=== PATIENT | female | born 1930 | race African-American/Black ===

== ENCOUNTER 2018-11-28 13:36 | Inpatient (IN) | payer MEDICARE, OTHER ==
--- NOTE | 2018-11-28 13:49 | ED ---
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 Per EMS: Pt was referred by PCP, Dr. Marie, to ED for further evaluation of her bilat leg sores to r/o infection; pt was afebrile en route and did not c/o SOB, CP; glucose en route was 232. Associated sx: bilat LE pain and edema. Per son, pt has a pressure sore on her R heel that she's had a while , as well as newer sores on the posterior RLE. He thinks she may also have a UTI because she has had altered mental status for about 4 days. Pt has not been on antibiotics recently. PMHx: hyperthyroidism, HTN, HDL, CHF, DM. Denies PMHx: stroke. - History of Current Complaint Stated Complaint: BED SORES PER EMS Hx Obtained From: Family/Business Process Analyst - son, EMS Onset/Duration: Still Present Timing: Constant Onset Severity: Moderate Current Severity: Severe Skin Location: Leg - bilat ankles and posterior RLE Character: Swelling, Pain Aggravating Symptom(s): Touch Associated Signs & Symptoms: Tenderness - bilat LE - Allergy/Home Medications Allergies/Adverse Reactions: Allergies Allergy/AdvReac Type Severity Reaction Status Date / Time enalapril Allergy Severe Swelling Verified 11/29/18 02:44 Home Medications: Home Medications Atorvastatin* [Lipitor*] 10 mg PO BEDTIME 11/28/18 [History Confirmed 11/28/18] Bismuth Subsalicylate [Pepto-Bismol] 1 dose PO Q12HR PRN 11/28/18 [History Confirmed 11/28/18] Furosemide TAB* [Lasix TAB*] 20 mg PO 1200 11/28/18 [History Confirmed 11/28/18] Furosemide TAB* [Lasix TAB*] 40 mg PO QAM 11/28/18 [History Confirmed 11/28/18] Levothyroxine TAB* [Synthroid TAB*] 25 mcg PO 0800 11/28/18 [History Confirmed 11/28/18] Sennosides [Senna] 8.6 mg PO BID 11/28/18 [History Confirmed 11/28/18] Spironolactone TAB* [Aldactone TAB*] 25 mg PO QAM 11/28/18 [History Confirmed ] glipiZIDE TAB* [Glucotrol TAB*] 2.5 mg PO QPM 11/28/18 [History Confirmed ] glipiZIDE TAB* [Glucotrol TAB*] 10 mg PO DAILY 11/28/18 [History Confirmed 11/28] Gabapentin 300 mg PO TID 11/29/18 [History Confirmed 11/29/18] PMH/Surg Hx/FS Hx/Imm Hx Previously Healthy: No Endocrine/Hematology History: Reports: Hx Diabetes Cardiovascular History: Reports: Hx Congestive Heart Failure, Hx Hypertension, Other Cardiovascular Problems/Disorders - CAD GI History: Reports: Other GI Disorders - LEFT FLANK PAIN RADIATES TO BACK / NAUSEA History: Reports: Hx Dialysis - NIDDM Musculoskeletal History: Reports: Hx Arthritis, Hx Back Problems Sensory History: Reports: Hx Contacts or Glasses - reading, Hx Hearing Problem - hearing device, son will bring in tmrw Opthamlomology History: Reports: Hx Contacts or Glasses - reading Psychiatric History: Reports: Hx Anxiety Infectious Disease History: Denies: Traveled Outside the [place] in Last 30 Days - Family History Known Family History: Positive: Cardiac Disease, Diabetes - Social History Occupation: Retired Lives: With Family Alcohol Use: None Hx Substance Use: No Substance Use Type: Reports: None Hx Tobacco Use: No Smoking Status (MU): Never Smoked Tobacco Review of Systems Positive: Other - pos: AMS Negative: Chest Pain Negative: Shortness Of Breath Positive: Edema - bialteral LE Skin: Other - pos: sores and pain to bilat LE All Other Systems Reviewed And Are Negative: Yes Physical Exam - Summary Physical Exam Summary: GENERAL: Patient is a well-developed and nourished FEMALE who is lying comfortable in the stretcher. Patient is not in any acute respiratory distress. HEAD AND FACE: Normocephalic EYES: PERRLA, EOMI x 2. EARS: Hearing grossly intact. MOUTH: Oropharynx within normal limits. NECK: Supple, trachea is midline, no adenopathy, no JVD, no carotid bruit. CHEST: Symmetric, no tenderness at palpation LUNGS: Clear to auscultation bilaterally. No wheezing or crackles. CVS: Regular rate and rhythm, S1 and S2 present, no murmurs or gallops appreciated. ABDOMEN: Soft, non-tender. Bowel sounds are normal. No abdominal abnormal pulsations. EXTREMITIES: Chronic lymphedema to bilateral LE with a lot of flaking skin, R heel decubitus ulcer, stage I, with drainage. NEURO: Alert and oriented x 3. No acute neurological deficits. Speech is normal and follows commands. SKIN: Dry and warm. A lot of flaking skin to bilateral LE, R heel decubitus ulcer, stage I, with drainage. GCS: 14 Triage Information Reviewed: Yes Vital Signs Reviewed: Yes - Macarena Coma Scale Glascow Coma Scale Comments: 14 Procedures - Procedure Summary Procedure Summary: Procedure note: 20 in Left AC. Diagnostics - Laboratory Result Diagrams: 11/28/18 13:25 11/28/18 13:25 Lab Statement: Any lab studies that have been ordered have been reviewed, and results considered in the medical decision making process. - Radiology CXR Radiology Interpretation Completed By: Radiologist Summary of Radiographic Findings: IMPRESSION: RIGHT BASILAR ATELECTASIS WITH SUGGESTION OF NODULARITY. RECOMMEND PA AND LATERAL CHEST FILMS FOR FURTHER EVALUATION. ED provider has reviewed this report. RLE XR Radiology Interpretation Completed By: Radiologist Summary of Radiographic Findings: IMPRESSION: SOFT TISSUE SWELLING, NO SPECIFIC EVIDENCE FOR OSTEOMYELITIS. ED provider has reviewed this report. - CT BRAIN CT CT Interpretation Completed By: Radiologist Summary of CT Findings: IMPRESSION: 1. NO EVIDENCE FOR ACUTE INTRACRANIAL ABNORMALITY. 2. OLD RIGHT OCCIPITAL LOBE INFARCT. ED provider has reviewed this report. CHEST CT CT Interpretation Completed By: Radiologist Summary of CT Findings: IMPRESSION: THERE ARE SCATTERED PATCHY NODULAR DENSITIES IN THE RIGHT UPPER AND LOWER LOBES MOST CONSISTENT WITH AN INFECTIOUS INFECTIOUS LESS LIKELY A NEOPLASTIC PROCESS. RECOMMEND FOLLOW-UP STUDIES TO RESOLUTION. ED provider has reviewed this report. - EKG 1451 Summary of EKG Findings: Atrial flutter at 79 bpm, 3:1. Pt has hx of a-fib based on previous EKGs. Re-Evaluation - Re-Evaluation 1 Re-Evaluation Time: 18:42 Change: Worse Comment: Pt's IV infiltrated. Course/Dx - Course Course Of Treatment: Pt is an 87 y/o F with chronic LE lymphedema was referred by Dr. Marie, PCP, to r/o infection of her bilateral LE sores. Per EMS: Pt was afebrile en route and was without SOB, CP; POC glucose: 232. Labwork shows Hgb : 10.3, Chloride: 100, BUN/C: 23.2, Glucose: 255, CRP: 37.02, BNP: 216. Procedure note: 20 in Left AC. CXR shows "RIGHT BASILAR ATELECTASIS WITH SUGGESTION OF NODULARITY. RECOMMEND PA AND LATERAL CHEST FILMS FOR FURTHER EVALUATION." Chest CT shows "THERE ARE SCATTERED PATCHY NODULAR DENSITIES IN THE RIGHT UPPER AND LOWER LOBES MOST CONSISTENT WITH AN INFECTIOUS INFECTIOUS LESS LIKELY A NEOPLASTIC PROCESS. RECOMMEND FOLLOW-UP STUDIES TO RESOLUTION.". RLE XR shows "SOFT TISSUE SWELLING, NO SPECIFIC EVIDENCE FOR OSTEOMYELITIS.". Brain CT shows "1. NO EVIDENCE FOR ACUTE INTRACRANIAL ABNORMALITY. 2. OLD RIGHT OCCIPITAL LOBE INFARCT.". Case discussed with hospitalist, Dr. Ruiz, who will admit patient. I discussed results with patient. The patient agrees with this plan. - Diagnoses Provider Diagnoses: Altered mental status, PNA (pneumonia) - Physician Notifications Discussed Care Of Patient With: Flaco Ruiz - hospitalist Time Discussed With Above Provider: 17:16 Instructed by Provider To: Admit As Inpatient Discharge - Sign-Out/Discharge Documenting (check all that apply): Patient Departure - ADMIT Patient Received Moderate/Deep Sedation with Procedure: No - Discharge Plan Condition: Stable Disposition: ADMITTED TO [facility] - Billing Disposition and Condition Condition: STABLE Disposition: Admitted to [facility] - Attestation Statements Document Initiated by Feliz: Yes Documenting Scribe: Latesha Pace Provider For Whom Scribe is Documenting (Include Credential): Dr. Ana Maria Henry MD Scribe Attestation: ILatesha, scribed for Dr. Ana Maria Henry MD on 11/29/18 at 1446. Scribe Documentation Reviewed: Yes Provider Attestation: The documentation as recorded by the Latesha castro accurately reflects the service I personally performed and the decisions made by me, Dr. Ana Maria Henry MD Status of Scribe Document: Viewed
[2018-11-28] MEDS ORDERED: NS 0.9% 1000 ML** 500 ML IV ONE (14:11)
[2018-11-28] MEDS ORDERED: fentaNYL* 50 MCG/ML 2 ML VIAL (100 MCG VIAL) IV SLOW PU ONE (15:24)
[2018-11-28 15:40] LABS: ABS Basophils 0 10^3/ul (0-0.2); ABS Eosinophils 0.2 10^3/ul (0-0.6); ABS Lymphocytes 1.6 10^3/ul (1.0-4.8); ABS Monocytes 0.4 10^3/ul (0-0.8); ABS Neutrophils 3.5 10^3/ul (1.5-7.7); ABS Nucleated RBC 0 10^3/ul; Eosinophil % 2.8 %; Hematocrit 33 % (33-41); Hemoglobin 10.3 g/dL (12.0-16.0); Lymphocyte % 27.6 %; Mean Corpuscular HGB Conc 31 g/dL (31-36); Mean Corpuscular Hemoglobin 25 pg (27-31); Mean Corpuscular Volume 79 fL (80-97); Nucleated Red Blood Cells % 0.1; Platelet Count 208 10^3/uL (150-450); Red Blood Count 4.18 10^6 /uL (3.70-4.87); Red Cell Distribution Width 16 % (10.5-15); White Blood Count 5.6 10^3/uL (3.5-10.8)
[2018-11-28 15:51] LABS: Albumin 3.9 g/dL (3.2-5.2); Albumin/Globulin Ratio 1.3 (1-3); BUN/Creatinine Ratio 23.2 (8-20); C Reactive Protein 37.02 mg/L (<8.01); Calcium 9.1 mg/dL (8.6-10.3); EGFR African American 79.8 (>60); EGFR Non-African American 65.9 (>60); Globulin 3.1 g/dL (2-4); Potassium 4.4 mmol/L (3.5-5.0); Total Bilirubin 0.3 mg/dL (0.2-1.0)
[2018-11-28 15:52] LABS: Troponin I 0.01 ng/mL (<0.04)
[2018-11-28 15:55] LABS: BNP 216 pg/mL (<=100)
[2018-11-28 15:58] LABS: Activated Partial Thrombo Time 30.5 seconds (26.0-36.3); INR 0.98 (0.77-1.02)
[2018-11-28] MEDS ORDERED: Azithromycin 500 mg/250 ml NS 500 MG/250 ML BAG IVPB ONE (17:09)
[2018-11-28] MEDS: cefTRIAXone(*) 1 GM in NS 0.9% 50 ML* 50 ML IVPB ONE ×2 (18:10→21:37)
[2018-11-28 21:17] LABS: Urine Appearance Clear; Urine Bacteria 2+ (Absent); Urine Bilirubin Negative (Negative); Urine Blood 1+ (Negative); Urine Color Straw; Urine Glucose Negative (Negative); Urine Ketones Negative (Negative); Urine Nitrite Negative (Negative); Urine Protein Negative (Negative); Urine Red Blood Cell 2+(6-10/hpf) (Absent); Urine Specific Gravity 1.005 (1.010-1.030); Urine Squamous Epithelial Cell Present (Absent); Urine Urobilinogen Negative (Negative); Urine White Blood Cell 2+(11-20/hpf) (Absent)
[2018-11-28] MEDS: Senna TAB PO SCH (22:53)
[2018-11-28] MEDS: Atorvastatin* 10 MG TAB PO SCH (22:53)
[2018-11-28] MEDS: Docusate CAP* 100 MG PO SCH (22:53)
[2018-11-28] MEDS: Heparin VIAL(*) 5000 UNITS/ML VIAL (FIVE THOUSAND) SUBCUT SCH (22:54)
--- NOTE | 2018-11-28 23:12 | HP ---
CC: Kathy Marie MD* ADMISSION HISTORY AND PHYSICAL: DATE OF ADMISSION: 11/28/18 PROVIDER: Caryn Mrar NP. PRIMARY CARE PROVIDER: Kathy Marie MD. ATTENDING PHYSICIAN WHILE IN THE HOSPITAL: Kash Beckett MD* (dictated by Caryn Marr NP). CHIEF COMPLAINT: Altered mental status. HISTORY OF PRESENT ILLNESS: Ms. Tavera is an 87-year-old female with a past medical history significant for CAD, congestive heart failure, atrial fibrillation, hypertension, jsc-qwdqolb-tpfokfplm diabetes, GERD, chronic constipation, Graves, hypothyroidism, chronic lower extremity leg ulcers x2 years who was recommended to come to the emergency room due to an open sore on her lower extremities. The history of present illness was obtained from her son as the patient is very hard of hearing and is a poor historian. The son reports that the patient has had altered mental status for approximately 4 days and strong urine odor x1 week as well as an open sore on the posterior aspect of her right lower leg that has been draining fluid. Due to this drainage and open sore, her primary care physician wanted her seen and evaluated in the emergency room. The patient denies any fever or chills. Denies any chest pain. Does report lower extremity edema, which has been chronic. Denies any cough, hemoptysis, shortness of breath. Denies any nausea, vomiting, diarrhea, abdominal pain, hematuria, or dysuria. There is a report of foul-smelling urine odor. The patient is chronically incontinent per son. There has been no weakness or sensory loss. Denies any visual complaints, dysphagia, arthralgias , myalgias. She does report lower extremity edema and open lesion on both posterior legs and calves and left heel with a small reddened area. No psychosis or anxiety. PAST MEDICAL HISTORY: Significant for: 1. CAD. 2. CHF. 3. Atrial fibrillation. 4. Hypertension. 5. Hyperlipidemia. 6. Djs-otpmwof-bkopbsftt diabetes with bilateral lower extremity neuropathy. 7. Hypothyroidism. 8. GERD. 9. Chronic constipation. PAST SURGICAL HISTORY: None. HOME MEDICATIONS: 1. Glipizide 10 mg p.o. daily. 2. Glipizide 2.5 mg p.o. daily. 3. Spironolactone 25 mg p.o. q.a.m. 4. Senna 8.6 p.o. b.i.d. 5. Furosemide 20 mg at noon, 40 mg in the morning. 6. MiraLAX 17 g every other day p.r.n. 7. Ultram 50 mg p.o. q.8 hours as needed for pain. 8. Levothyroxine 25 mcg p.o. daily. 9. Metoprolol 25 mg p.o. q.a.m. 10. Cimetidine 20 mg p.o. q.a.m. 11. Atorvastatin 10 mg p.o. at bedtime. 12. Colace 100 mg p.o. b.i.d. 13. Clopidogrel 75 mg p.o. q.a.m. 14. Aspirin 325 mg p.o. daily. 15. Acetaminophen 650 mg p.o. q.6 hours as needed for pain. ALLERGIES: To ENALAPRIL. FAMILY HISTORY: Mother with a history of congestive heart failure. No reported history of diabetes. Grandmother with a history of breast cancer. SOCIAL HISTORY: No tobacco, alcohol or illicit drug use. She is . She lives with her son. Surrogate decision maker in the event she is unable to make her own decisions is her son. She is a full code. REVIEW OF SYSTEMS: All pertinent positives are mentioned in the HPI. All others are negative. PHYSICAL EXAMINATION GENERAL: At this time, Ms. Tavera is an 87-year-old elderly female, resting on the stretcher in the emergency room. She is extremely hard of hearing. She is alert, but confused to place and time. VITAL SIGNS: Blood pressure 168/68, heart rate 76, respirations 18, O2 saturation 100%, temperature was 97.7. HEENT: Head is atraumatic, normocephalic. Eyes: EOMs are intact. Sclerae anicteric and not pale. Oral mucosa appeared to be moist. NECK: Supple. LUNGS: Clear to auscultation bilaterally. No wheezes, rales, or rhonchi. CARDIAC: S1, S2. She has irregular rate and rhythm. She has AFib on the monitor. ABDOMEN: Obese, soft, nontender. Bowel sounds are present x4. MUSCULOSKELETAL: She is able to move all extremities. She does have dry scaly skin noted to bilateral lower extremities. Pedal pulses are +1 bilaterally. She does have swelling noted to bilateral lower extremities. NEUROLOGIC: She is alert and oriented to name and person. She is confused to place and time at this time, but is able to answer questions appropriately. Cranial nerves II through XII are intact. She has no gross focal deficits. SKIN: She has a small open area on the left and right posterior calves, the right calf with a small amount of serous drainage. She does have tenderness to the left heel with a small reddened area. DIAGNOSTIC STUDIES/LAB DATA: She had an electrocardiogram that showed atrial flutter at a rate of 79. She had a chest x-ray, radiologist's impression: Right basilar atelectasis with suggestion of nodularity, recommend PA and lat chest. She had a lower extremity x- ray of her right heel, soft tissue swelling, no specific evidence of osteomyelitis. She had a CT of the brain, no evidence of acute intracranial abnormality, old right occipital lobe infarct. She had a CT of the chest, there are scattered patchy nodular densities in the right upper and lower lobes consistent with infectious, less likely neoplastic process, recommend followup studies to resolution. IMPRESSION AND PLAN: Ms. Tavera is an 87-year-old female with a past medical history significant for coronary artery disease, congestive heart failure, atrial fibrillation, hypertension, hyperlipidemia, poa-uqphcbx-diirngqis diabetes with neuropathy, lower extremity edema and chronic leg ulceration who presented to the emergency room with a complaint of open leg ulceration and altered mental status. She will be admitted under observation for altered mental status. 1. Altered mental status. I suspect this could be related to underlying urinary tract infection as the patient does have a report of foul-smelling urine x1 week with chronic incontinence. We will give her ceftriaxone 1 gram IM and then transition to oral. as the patient does not have IV access after several attempts. 2. Coronary artery disease. We will continue her clopidogrel, aspirin, atorvastatin, and metoprolol as previously prescribed. 3. Atrial fibrillation. She is rate controlled at this time. We will continue her metoprolol 25 mg p.o. daily. 4. Hypothyroid. She will continue on 25 mcg of levothyroxine p.o. daily. 5. Chronic constipation. She will continue on Colace and senna, as previously prescribed at home. 6. Diabetes. I will hold her glipizide at this time. I will place her on lispro sliding scale with Accu-Cheks a.c. 7. Pulmonary nodularity in the right lung. The patient is afebrile. She has no cough, no congestion, no rhinorrhea, no shortness of breath, no hypoxia. At this time, clinically, the patient does not appear to have pneumonia. I will hold off on treating her as pneumonia. If she should develop shortness of breath, cough, congestion, or fever, we can proceed with treating her for pneumonia at that time. I would recommend consultation to Dr. Allen for evaluation of the patient's CAT scan due to the patient being asymptomatic and concerning nodularity in the right lung. 8. FEN. She can have a carb-consistent diet. 9. Code status. She is a full code. 10. DVT prophylaxis. I will place her on heparin subcu. TIME SPENT: Time spent on this admission was approximately 60 minutes, greater than half the time was spent at the bedside reviewing events leading thus far to her hospitalization, performing my physical exam, and reviewing my plan of care. I have discussed this with my attending, Dr. Kash Beckett; he is in agreement with my plan. CARYN MARR, ADULT LITERACY TEACHER [id number]/CPS #: [id number] JOSEFA
[2018-11-29] MEDS: Acetaminophen TAB* 325 MG PO PRN ×2 (00:12→09:27)
--- NOTE | 2018-11-29 03:19 | PN ---
Progress Note - Progress Note Date of Service: 11/29/18 Note: cross cover: Frequent pauses overnight AM toprol decreased from 25 to 12.5mg
[2018-11-29] MEDS: Levothyroxine TAB* 25 MCG TAB PO SCH (04:28)
[2018-11-29] MEDS: Heparin VIAL(*) 5000 UNITS/ML VIAL (FIVE THOUSAND) SUBCUT SCH ×4 (04:28→23:03)
[2018-11-29] MEDS ORDERED: cefTRIAXone VIAL(*) 1,000 MG VIAL IM ONE (06:00)
--- NOTE | 2018-11-29 06:20 | PN ---
Progress Note - Progress Note Date of Service: 11/29/18 Note: Staph aureus positive from right ankle culture Patient is currently admitted Is placed on ceftriaxone This is appropriate treatment Nothing further this time
[2018-11-29] MEDS ORDERED: Metoprolol Succinate XL TAB* 25 MG PO SCH (09:00)
[2018-11-29] MEDS: Furosemide TAB* 40 MG PO SCH (09:27)
[2018-11-29] MEDS: Docusate CAP* 100 MG PO SCH ×2 (09:27→22:56)
[2018-11-29] MEDS: Spironolactone TAB* 25 MG PO SCH (09:27)
[2018-11-29] MEDS: Senna TAB PO SCH ×2 (09:27→22:56)
[2018-11-29] MEDS: Famotidine TAB* 20 MG PO SCH (09:27)
[2018-11-29] MEDS: Clopidogrel TAB* 75 MG PO SCH (09:27)
[2018-11-29] MEDS: Aspirin TAB* 325 MG PO SCH (09:27)
--- NOTE | 2018-11-29 09:51 | PN ---
Subjective Date of Service: 11/29/18 Interval History: Ms. Tavera is feeling "miserable" this morning, but she is not able to verbalize why. She does report pain in BLE, but is unable to further describe the pain. It is not clear if she has any pain in her BLE at baseline. She offers no further complaints. Denies CP, SOB. Appetite is good. Nursing reports significant LE edema, but no obvious wounds. There is some weeping. She has been complaining consistently about pain in her LE. Had some asymptomatic pauses overnight. Family History: Unchanged from Admission Social History: Unchanged from Admission Past Medical History: Unchanged from Admission Objective Active Medications: Acetaminophen (Tylenol Tab*) 650 mg PO Q4H PRN FEVER/PAIN Aspirin (Aspirin Tab*) 325 mg PO QAM ANN Atorvastatin Calcium (Lipitor*) 10 mg PO BEDTIME ANN Clopidogrel Bisulfate (Plavix Tab*) 75 mg PO QAM [facility] Docusate Sodium (Colace Cap*) 100 mg PO BID ANN Famotidine (Pepcid Tab*) 20 mg PO QAM ANN Furosemide (Lasix Tab*) 20 mg PO 1200 ANN Furosemide (Lasix Tab*) 40 mg PO QAM [facility] Heparin Sodium (Porcine) (Heparin Vial(*)) 5,000 units SUBCUT Q8HR ANN Levothyroxine Sodium (Synthroid Tab*) 25 mcg PO 0600 ANN Senna (Senokot Tab*) 1 tab PO BID ANN Spironolactone (Aldactone Tab*) 25 mg PO QAM [facility] Vital Signs - 8 hr 11/29/18 11/29/18 11/29/18 03:11 03:42 07:24 Temperature 96.7 F 96.7 F Pulse Rate 72 72 72 Respiratory 21 21 18 Rate Blood Pressure 142/102 142/102 150/61 (mmHg) O2 Sat by Pulse 74 94 100 Oximetry 11/29/18 07:37 Temperature 98.3 F Pulse Rate Respiratory Rate Blood Pressure (mmHg) O2 Sat by Pulse Oximetry Oxygen Devices in Use Now: None Appearance: Elderly female sitting in bed in NAD Eyes: No Scleral Icterus Ears/Nose/Mouth/Throat: Mucous Membranes Moist Neck: NL Appearance and Movements; NL JVP, Trachea Midline Respiratory: Symmetrical Chest Expansion and Respiratory Effort, Clear to Auscultation Cardiovascular: NL Sounds; No Murmurs; No JVD, - - Irregular Abdominal: NL Sounds; No Tenderness; No Distention Extremities: - - Profound lymphedema BLE Skin: - - Weeping BLE without obvious open wounds; Malodorous Neurological: - - Oriented to self Nutrition: Taking PO's Result Diagrams: 11/28/18 13:25 11/28/18 13:25 Assess/Plan/Problems-Billing Assessment: Ms. Tavera is an 87 yo F with PMH of CAD, CHF, afib, HTN, HLD, DM, peripheral neuropathy, and GERD; who presented to the ED with altered mental status and was admitted because of the concern for LE wounds and UTI. - Patient Problems (1) UTI (urinary tract infection) Comment: - Malodorous urine x1 week prior to admission - Multiple UTIs in the past - Urine culture pending - Given ceftriaxone IM x1 on admission - Start Bactrim (unable to secure IV access) (2) Lower extremity edema Code(s): R60.0 - LOCALIZED EDEMA Comment: - Small open areas noted on posterior calves on admission with reported weeping at home, but no obvious infection - Wound cultures growing staph aureus and enterobacter - Appreciate wound consult - Bactrim for UTI should cover any possible infection (3) Altered mental state Code(s): R41.82 - ALTERED MENTAL STATUS, UNSPECIFIED Comment: - Baseline mentation unclear, but son reported approx 1 week of AMS prior to admission - Likely secondary to UTI - Plan as above (4) Abnormal chest CT Code(s): R93.89 - ABNORMAL FINDINGS ON DX IMAGING OF OTH BODY STRUCTURES Comment: - CT shows scattered patchy nodular densities in RUL and lower lobes consistent with infectious process, less likely neoplastic - No cough, SOB, hemoptysis, or fever so will not treat for pneumonia at this point - Continue to monitor for symptoms and will likely need f/u imaging outpatient (5) Chronic systolic congestive heart failure Code(s): I50.22 - CHRONIC SYSTOLIC (CONGESTIVE) HEART FAILURE Comment: - Significant BLE edema, but unclear if this is r/t CHF or lymphedema as it clinically appears to look more like lymphedema - Last echo in 2009 (?) shows EF 50-55%, moderate MR, moderate TR, moderate pHTN ; unclear why there has not been a repeat echo since then (this is confirmed by records from PCP) - Not on an JAVI/ARB d/t history of angioedema with enalapril - Check TTE tomorrow - Continue metoprolol, furosemide, spironolactone (6) Atrial fibrillation Code(s): I48.91 - UNSPECIFIED ATRIAL FIBRILLATION Comment: - Rate controlled, but was noted to have pauses on tele overnight - Not on anticoagulation - Continue metoprolol at half home dose (7) Hypertension Code(s): I10 - ESSENTIAL (PRIMARY) HYPERTENSION Comment: - Slightly hypertensive, SBP 140-150s - Continue metoprolol, furosemide (8) Diabetes mellitus type 2 Code(s): E11.9 - TYPE 2 DIABETES MELLITUS WITHOUT COMPLICATIONS Comment: - Recent A1c 8.4% - Resume glipizide; start Lispro SS (9) Peripheral neuropathy Code(s): G62.9 - POLYNEUROPATHY, UNSPECIFIED Comment: - Continue gabapentin (10) CAD (coronary artery disease) Code(s): I25.10 - ATHSCL HEART DISEASE OF [place] CORONARY ARTERY W/O ANG PCTRS Comment: - Continue aspirin, atorvastatin, Plavix (11) Hyperlipidemia Code(s): E78.5 - HYPERLIPIDEMIA, UNSPECIFIED Comment: - Continue atorvastatin (12) Hypothyroidism Code(s): E03.9 - HYPOTHYROIDISM, UNSPECIFIED Comment: - Continue levothyroxine (13) GERD (gastroesophageal reflux disease) Code(s): K21.9 - GASTRO-ESOPHAGEAL REFLUX DISEASE WITHOUT ESOPHAGITIS Comment : - Continue famotidine (14) DVT prophylaxis Comment: - Heparin SQ (15) Full code status Code(s): Z78.9 - OTHER SPECIFIED HEALTH STATUS Comment: Status and Disposition: Observation for AMS. Anticipate d/c home vs [place] when medically stable. Unclear if there is enough support at home to keep her there. Attending: Micheline Doss
[2018-11-29] MEDS ORDERED: Dextrose 50% Syringe 50 ML* 25 GM/50 ML SYRINGE IV PUSH PRN (10:09)
[2018-11-29] MEDS: Furosemide TAB* 20 MG PO SCH (11:29)
[2018-11-29] MEDS: Metoprolol Succinate XL TAB* 25 MG PO SCH (11:30)
[2018-11-29] MEDS: Gabapentin CAP(*) 300 MG PO SCH ×2 (12:25→22:56)
[2018-11-29] MEDS: Insulin LISPRO* 1 UNITS UNIT SUBCUT SCH ×4 (12:26→23:03)
[2018-11-29] MEDS: glipiZIDE TAB* 5 MG PO SCH (17:39)
[2018-11-29] MEDS: Atorvastatin* 10 MG TAB PO SCH (22:56)
[2018-11-29] MEDS: Sulfamethox/Trimethoprim DS 800/160* TAB PO SCH (22:59)
[2018-11-30] MEDS: Levothyroxine TAB* 25 MCG TAB PO SCH (05:14)
[2018-11-30] MEDS: Heparin VIAL(*) 5000 UNITS/ML VIAL (FIVE THOUSAND) SUBCUT SCH ×3 (05:14→21:04)
[2018-11-30] MEDS: glipiZIDE TAB* 5 MG PO SCH ×2 (07:43→18:09)
[2018-11-30] MEDS: Insulin LISPRO* 1 UNITS UNIT SUBCUT SCH ×4 (07:44→21:04)
[2018-11-30] MEDS: Aspirin TAB* 325 MG PO SCH (09:42)
[2018-11-30] MEDS: Senna TAB PO SCH ×2 (09:42→21:03)
[2018-11-30] MEDS: Docusate CAP* 100 MG PO SCH ×2 (09:42→21:03)
[2018-11-30] MEDS: Clopidogrel TAB* 75 MG PO SCH (09:42)
[2018-11-30] MEDS: Famotidine TAB* 20 MG PO SCH (09:42)
[2018-11-30] MEDS: Gabapentin CAP(*) 300 MG PO SCH ×3 (09:43→21:03)
[2018-11-30] MEDS: Furosemide TAB* 40 MG PO SCH (09:43)
[2018-11-30] MEDS: Sulfamethox/Trimethoprim DS 800/160* TAB PO SCH (09:43)
[2018-11-30] MEDS: Spironolactone TAB* 25 MG PO SCH (09:44)
[2018-11-30] MEDS: Acetaminophen TAB* 325 MG PO PRN ×2 (09:44→13:54)
[2018-11-30] MEDS: Metoprolol Succinate XL TAB* 25 MG PO SCH (09:44)
[2018-11-30] MEDS ORDERED: Metoprolol Succinate XL TAB* 25 MG PO ONE (10:47)
[2018-11-30] MEDS: Furosemide TAB* 20 MG PO SCH (11:49)
[2018-11-30] MEDS ORDERED: Perflutren Lipid Microsphere* 3 ML VIAL ONE (12:49)
--- NOTE | 2018-11-30 13:46 | PN ---
Subjective Date of Service: 11/30/18 Interval History: Tele: noted to have 20 beats VT x1. Mg ordered. Metoprolol increased to home dose of 25 and has since controlled rate. Pt moans with each breath. When asked if she is in pain, she states that she has pain in the R heel and L knee. She states she has not been walking recently. Nursing notes that pt is 2 person assist when transferring from bed to chair; they note they occasionally use Patricia. Family History: Unchanged from Admission Social History: Unchanged from Admission Past Medical History: Unchanged from Admission Objective Active Medications: Acetaminophen (Tylenol Tab*) 650 mg PO Q4H PRN Aspirin (Aspirin Tab*) 325 mg PO QAM ANN Atorvastatin Calcium (Lipitor*) 10 mg PO BEDTIME ANN Clopidogrel Bisulfate (Plavix Tab*) 75 mg PO QAM ANN Dextrose (D50w Syringe 50 Ml*) 12.5 gm IV PUSH .FOR FS < 60 - SS PRN Docusate Sodium (Colace Cap*) 100 mg PO BID ANN Famotidine (Pepcid Tab*) 20 mg PO QAM ANN Furosemide (Lasix Tab*) 20 mg PO 1200 ANN Furosemide (Lasix Tab*) 40 mg PO QAM ANN Gabapentin (Neurontin Cap(*)) 300 mg PO TID NAN Glipizide (Glucotrol Tab*) 2.5 mg PO QPM ANN Glipizide (Glucotrol Tab*) 10 mg PO DAILY ANN Heparin Sodium (Porcine) (Heparin Vial(*)) 5,000 units SUBCUT Q8HR ANN Insulin Human Lispro (Humalog*) 0 units SUBCUT ACHS ANN; Protocol Levothyroxine Sodium (Synthroid Tab*) 25 mcg PO 0600 ANN Metoprolol Succinate (Toprol Xl Tab*) 25 mg PO DAILY ANN Senna (Senokot Tab*) 1 tab PO BID ANN Spironolactone (Aldactone Tab*) 25 mg PO QAM ANN Trimethoprim/Sulfamethoxazole (Bactrim Ds 800/160 Tab*) 1 tab PO BID [facility] Vital Signs: Temp Pulse Resp BP Pulse Ox 97.7 F 90 18 158/60 95 11/30/18 11:33 11/30/18 11:33 11/30/18 12:13 11/30/18 12:28 11/30/18 11:33 Oxygen Devices in Use Now: None Appearance: Pt laying in bed, moaning. She responds to questioning, but is very [id number]. She appears unwell. She is in no acute distress. Eyes: No Scleral Icterus Ears/Nose/Mouth/Throat: Clear Oropharnyx, Mucous Membranes Moist, - - Poor dentition Neck: NL Appearance and Movements; NL JVP, Trachea Midline Respiratory: Symmetrical Chest Expansion and Respiratory Effort, Clear to Auscultation Cardiovascular: NL Sounds; No Murmurs; No JVD - Irregular rate, tachycardic Abdominal: NL Sounds; No Tenderness; No Distention, No Hepatosplenomegaly Extremities: No Clubbing, Cyanosis, - - B/l LE edematous with very thickened skin, tender with any palpation. Pulses nonpalpable. No pedal or posterior tibial pulse noted with doppler; popliteal pulse identified with doppler. Result Diagrams: 11/28/18 13:25 11/28/18 13:25 Microbiology and Other Data: Microbiology 11/28/18 17:15 Skin and Soft Tissue MRSA/MSSA (PCR - Final Ankle Right Mrsa Negative S.aureus Positive Gram Stain - Final 11/28/18 17:15 Skin and Soft Tissue MRSA/MSSA (PCR - Final Leg Right Mrsa Negative S.aureus Positive Gram Stain - Final Assess/Plan/Problems-Billing Assessment: Ms. Tavera is an 87 yo F with PMH of CAD, CHF, afib, HTN, HLD, DM, peripheral neuropathy, and GERD; who presented to the ED with altered mental status and was admitted because of the concern for LE wounds and UTI. - Patient Problems (1) UTI (urinary tract infection) Comment: - Malodorous urine x1 week prior to admission, multiple UTIs in the past - Urine culture pending - Given ceftriaxone IM x1 on admission - IV access gained- will transition to Ceftriaxone tonight (2) Lower extremity edema Comment: - Small open areas noted on posterior calves on admission with reported weeping at home, but no obvious infection - Wound cultures growing staph aureus and enterobacter - Appreciate wound consult - Peripheral pulses not palpable or identifiable with doppler; JORGE A ordered- reveals limited exam with evidence for PVD (3) Altered mental state Comment: - Baseline mentation unclear, but son reported approx 1 week of AMS prior to admission - Likely secondary to UTI - Plan as above (4) Abnormal chest CT Comment: - CT shows scattered patchy nodular densities in RUL and lower lobes consistent with infectious process, less likely neoplastic - No cough, SOB, hemoptysis, or fever so will not treat for pneumonia at this point - Continue to monitor for symptoms and will likely need f/u imaging outpatient (5) Chronic systolic congestive heart failure Comment: - Significant BLE edema unlikely related to CHF - TTE today: EF 55-60%, no significant valvular abnorms - Not on an JAVI/ARB d/t history of angioedema with enalapril - Continue metoprolol, furosemide, spironolactone (6) Atrial fibrillation Comment: - Rate controlled, but was noted to have pauses on tele 2 nights ago, 20 beats VT today - Not on anticoagulation - Continue metoprolol; dose doubled to home dose of 25 - Mg level ordered (7) Hypertension Comment: - Slightly hypertensive, SBP 180's - Increase metoprolol back to 25 (home dose) - Continue furosemide (8) Diabetes mellitus type 2 Comment: - Recent A1c 8.4% - Resume glipizide; start Lispro SS (9) CAD (coronary artery disease) Comment: -Continue aspirin, atorvastatin, Plavix (10) Peripheral neuropathy Comment: - Continue gabapentin (11) GERD (gastroesophageal reflux disease) Comment: - Continue famotidine (12) Hypothyroidism Comment: - Continue levothyroxine (13) Hyperlipidemia Comment: - Continue atorvastatin (14) DVT prophylaxis Comment: - Heparin SQ (15) Full code status Comment: Status and Disposition: Observation for AMS. Anticipate d/c home vs [place] when medically stable. Unclear if there is enough support at home to keep her there. Likely d/c to [place] when stable; referrals pending.
--- NOTE | 2018-11-30 14:20 | ECHO ---
Patient: SHORTY FERNANDEZ [facility] Rec#: [id number] : 1930 Date: 11/30/2018 Age: 87y Height: 152 cm / 59.8 in Weight: 89 kg / 196.2 lbs Sex: F BSA: 1.85 Room#: 402 Admit Date#: 11/28/2018 Type: Inpatient Referring: LYDIA Reading: Franklin Robins DO Neckties Painter: Natacha Coats RDCS CC: Kathy Marie MD Transthoracic Echocardiogram Indication: Edema BP: 180/60 HR: 90 Rhythm: NSR with PACs Findings History: CAD,CHF,a-fib,HTN,DM,Graves disease,HLD,hypothyroid. Technical Comments: The study is technically difficult. Definity used to enhance images. The study is technically limited due to patient body habitus. Completed at 1337. Left Ventricle: The left ventricular chamber size is normal. Mild concentric left ventricular hypertrophy is observed. Global left ventricular wall motion and contractility are within normal limits. There is normal left ventricular systolic function. The estimated ejection fraction is 55-60%. Normal left ventricular diastolic filling is observed. Left Atrium: The left atrium is mildly dilated. Right Ventricle: The right ventricular cavity size is normal. The right ventricular global systolic function is low normal. Right Atrium: The right atrium is moderately dilated. Aortic Valve: The aortic valve is trileaflet. There is no evidence of aortic regurgitation. There is no evidence of aortic stenosis. Mitral Valve: The mitral valve leaflets are moderately thickened. There is trace to mild mitral regurgitation. There is no evidence of mitral stenosis. Tricuspid Valve: The tricuspid valve leaflets are normal. There is mild tricuspid regurgitation. No pulmonary hypertension is noted. There is no tricuspid stenosis. Pulmonic Valve: The pulmonic valve appears normal. There is no evidence of pulmonic regurgitation. There is no pulmonic stenosis. Pericardium: There is no significant pericardial effusion. Aorta: The ascending aorta is not well visualized. There is no dilatation of the aortic arch. There is no dilation of the aortic root. Pulmonary Artery: The main pulmonary artery is not well visualized. Venous: The venous system is not well visualized. Contrast: Definity was used to optimize study. A total of 4 ml used. Intravenous contrast was used to enhance endocardial border definition. Conclusions The study is technically difficult. The left ventricular chamber size is normal. Mild concentric left ventricular hypertrophy is observed. Global left ventricular wall motion and contractility are within normal limits. There is normal left ventricular systolic function. The estimated ejection fraction is 55-60%. The left atrium is mildly dilated. The right ventricular cavity size is normal. The right ventricular global systolic function is low normal. No significant valvular abnormalities noted Normal estimated PA systolic pressure Definity was used to optimize study. Compared to prior study from 03/2012, no significant changes noted Measurements Name Value Normal Range RVIDd (AP) 2D 2.8 cm (0.9 - 2.6) RVDdMajor (2D) 3.4 cm (2.2 - 4.4) RAd ISD 4CH 7.2 cm (3.4 - 4.9) RA (A4C)W 4.7 cm (2.9 - 4.6) IVSd (2D) 1.1 cm (0.6 - 1) LVPWd (2D) 1.1 cm (0.6 - 1) LVIDd (2D) 4.8 cm (3.6 - 5.4) LVIDs (2D) 3.1 cm - LV FS (2D) 35 % (25 - 45) Aortic Annulus 2 cm (1.4 - 2.6) Ao root diameter (2D) 2.9 cm (2.1 - 3.5) Aortic arch 2.8 cm (1.8 - 3.4) Descending Ao 0.4 cm - LA dimension (AP) 2D 4 cm (2.3 - 3.8) LAd ISD 4CH 5.6 cm (2.9 - 5.3) LA ISD 4CH W 4 cm (2.5 - 4.5) Name Value Normal Range MV E-wave Vmax 1.1 m/sec - MV deceleration time 162 msec - MV A-wave Vmax 0.5 m/sec - MV E:A ratio 2.1 ratio - LV septal e' Vmax 0.1 m/sec - LV lateral e' Vmax 0.14 m/sec - LV E:e' septal ratio 11 ratio - LV E:e' lateral ratio 7.86 ratio - Name Value Normal Range AV Vmax 1.3 m/sec - AV VTI 23.3 cm - AV peak gradient 7 mmHg - AV mean gradient 3 mmHg - LVOT Vmax 0.7 m/sec - LVOT VTI 13.7 cm - LVOT peak gradient 2 mmHg - LVOT mean gradient 1 mmHg - Name Value Normal Range TR Vmax 2.6 m/sec - TR peak gradient 27 mmHg - RAP 8 mmHg - RVSP 35 mmHg - Name Value Normal Range PV Vmax 0.8 m/sec - PV peak gradient 2 mmHg -
[2018-11-30] MEDS: Atorvastatin* 10 MG TAB PO SCH (21:03)
[2018-11-30] MEDS: Moisturizing CREAM* 120 GM JAR TOPICAL SCH (21:03)
[2018-11-30] MEDS: cefTRIAXone(*) 1 GM in NS 0.9% 50 ML* 50 ML IVPB SCH (21:13)
[2018-12-01] MEDS: Heparin VIAL(*) 5000 UNITS/ML VIAL (FIVE THOUSAND) SUBCUT SCH ×3 (05:47→20:53)
[2018-12-01] MEDS: Levothyroxine TAB* 25 MCG TAB PO SCH (05:47)
[2018-12-01 07:41] LABS: ABS Basophils 0 10^3/ul (0-0.2); ABS Eosinophils 0.2 10^3/ul (0-0.6); ABS Lymphocytes 2.1 10^3/ul (1.0-4.8); ABS Monocytes 0.4 10^3/ul (0-0.8); ABS Neutrophils 2.6 10^3/ul (1.5-7.7); ABS Nucleated RBC 0 10^3/ul; Eosinophil % 3.3 %; Hematocrit 30 % (33-41); Hemoglobin 9.4 g/dL (12.0-16.0); Lymphocyte % 39.1 %; Mean Corpuscular HGB Conc 31 g/dL (31-36); Mean Corpuscular Hemoglobin 25 pg (27-31); Mean Corpuscular Volume 79 fL (80-97); Mean Platelet Volume 9.6 fL (7.4-10.4); Nucleated Red Blood Cells % 0.1; Platelet Count 179 10^3/uL (150-450); Red Blood Count 3.77 10^6 /uL (3.70-4.87); Red Cell Distribution Width 15 % (10.5-15); White Blood Count 5.4 10^3/uL (3.5-10.8)
[2018-12-01 07:49] LABS: BUN/Creatinine Ratio 13.9 (8-20); Calcium 8.7 mg/dL (8.6-10.3); EGFR African American 62.7 (>60); EGFR Non-African American 51.8 (>60); Magnesium 1.7 mg/dL (1.9-2.7); Potassium 3.8 mmol/L (3.5-5.0)
[2018-12-01] MEDS: Insulin LISPRO* 1 UNITS UNIT SUBCUT SCH ×4 (07:58→20:54)
[2018-12-01] MEDS: Aspirin TAB* 325 MG PO SCH (08:42)
[2018-12-01] MEDS: Metoprolol Succinate XL TAB* 25 MG PO SCH (08:42)
[2018-12-01] MEDS: Acetaminophen TAB* 325 MG PO PRN ×3 (08:42→22:13)
[2018-12-01] MEDS: Senna TAB PO SCH ×2 (08:43→20:54)
[2018-12-01] MEDS: Spironolactone TAB* 25 MG PO SCH (08:44)
[2018-12-01] MEDS: Docusate CAP* 100 MG PO SCH ×2 (08:44→20:54)
[2018-12-01] MEDS: Furosemide TAB* 40 MG PO SCH (08:44)
[2018-12-01] MEDS: Gabapentin CAP(*) 300 MG PO SCH ×3 (08:44→20:54)
[2018-12-01] MEDS: Famotidine TAB* 20 MG PO SCH (08:44)
[2018-12-01] MEDS: glipiZIDE TAB* 5 MG PO SCH ×2 (08:44→17:28)
[2018-12-01] MEDS: Clopidogrel TAB* 75 MG PO SCH (08:44)
[2018-12-01] MEDS: Moisturizing CREAM* 120 GM JAR TOPICAL SCH ×2 (10:11→20:57)
--- NOTE | 2018-12-01 10:27 | PN ---
Subjective Date of Service: 12/01/18 Interval History: VS: WNL Labs: anemia, elevated Cr (baseline) Pt continues to c/o pain in the R heel. She denies pain elsewhere. She c/o tingling in b/l LE, which is consistent with her b/l LE diabetic neuropathy. She denies cough, SOB. She denies CP, abd pain, n/v/d. Spoke with son earlier. He states that he feels that her mentation is returning to baseline. He states that pt goes to wound clinic for LE weekly, but has not been since summer. He states that pt lives home with him, and he is still determined to have pt come home and is confident that she will get care needed. Pt has 56hours aide time and VNS in place. He also has DME, such as [employer], and is working on wheelchair lift for his vehicle to allow for ease of transport. Family History: Unchanged from Admission Social History: Unchanged from Admission Past Medical History: Unchanged from Admission Objective Active Medications: Acetaminophen (Tylenol Tab*) 650 mg PO Q4H PRN Aspirin (Aspirin Tab*) 325 mg PO QAM ANN Atorvastatin Calcium (Lipitor*) 10 mg PO BEDTIME ANN Clopidogrel Bisulfate (Plavix Tab*) 75 mg PO QAM ANN Dextrose (D50w Syringe 50 Ml*) 12.5 gm IV PUSH .FOR FS < 60 - SS PRN Docusate Sodium (Colace Cap*) 100 mg PO BID ANN Famotidine (Pepcid Tab*) 20 mg PO QAM ANN Furosemide (Lasix Tab*) 20 mg PO 1200 ANN Furosemide (Lasix Tab*) 40 mg PO QAM ANN Gabapentin (Neurontin Cap(*)) 300 mg PO TID ANN Glipizide (Glucotrol Tab*) 2.5 mg PO QPM ANN Glipizide (Glucotrol Tab*) 10 mg PO DAILY ANN Heparin Sodium (Porcine) (Heparin Vial(*)) 5,000 units SUBCUT Q8HR ANN Ceftriaxone Sodium 1 gm/ (Sodium Chloride) 50 mls @ 200 mls/hr IVPB Q24H ANN Insulin Human Lispro (Humalog*) 0 units SUBCUT ACHS ANN; Protocol Levothyroxine Sodium (Synthroid Tab*) 25 mcg PO 0600 ANN Metoprolol Succinate (Toprol Xl Tab*) 25 mg PO DAILY ANN Multi-Ingredient Ointment (Hydrocerin*) 1 applic TOPICAL BID ANN Senna (Senokot Tab*) 1 tab PO BID ANN Spironolactone (Aldactone Tab*) 25 mg PO QAM ANN Vital Signs: Temp Pulse Resp BP Pulse Ox 98.1 F 77 18 124/74 100 12/01/18 07:18 12/01/18 07:18 12/01/18 08:53 12/01/18 07:55 12/01/18 07:18 Oxygen Devices in Use Now: None Appearance: Pt is laying in bed. She appears more comfortable and talkative today. She is in no acute distress. Eyes: No Scleral Icterus, PERRLA Ears/Nose/Mouth/Throat: NL Teeth, Lips, Gums, Clear Oropharnyx, Mucous Membranes Moist, - - Poor dentition. Hearing diminished Neck: NL Appearance and Movements; NL JVP, Trachea Midline Respiratory: Symmetrical Chest Expansion and Respiratory Effort, Clear to Auscultation Cardiovascular: NL Sounds; No Murmurs; No JVD - Rate controlled, irregular rhythm. TELE: AF with rate control, No Edema Abdominal: NL Sounds; No Tenderness; No Distention, No Hepatosplenomegaly Extremities: No Clubbing, Cyanosis, - - B/L LE warm. Malodorous with skin thickening from ankle to appx 2/3 up lower leg that has improved slightly with Eucerin application. No discharge. Wet open wounds at b/l posterior calves, R quarter sized, L dime sized without s/s infextion. Neurological: - - Alert. Oriented to self. Result Diagrams: 12/01/18 07:26 12/01/18 07:26 Microbiology and Other Data: Microbiology 11/28/18 17:15 Skin and Soft Tissue MRSA/MSSA (PCR - Final Ankle Right Mrsa Negative S.aureus Positive Gram Stain - Final 11/28/18 17:15 Skin and Soft Tissue MRSA/MSSA (PCR - Final Leg Right Mrsa Negative S.aureus Positive Gram Stain - Final Assess/Plan/Problems-Billing Assessment: Ms. Tavera is an 87 yo F with PMH of CAD, CHF, afib, HTN, HLD, DM, peripheral neuropathy, and GERD; who presented to the ED with altered mental status and was admitted because of the concern for LE wounds and UTI. - Patient Problems (1) UTI (urinary tract infection) Comment: - Malodorous urine x1 week prior to admission, multiple UTIs in the past - Urine culture pending - Given ceftriaxone IM x1 on admission - IV access gained- continue Ceftriaxone (2) Lower extremity edema Comment: - Small open areas noted on posterior calves on admission with reported weeping at home, but no obvious infection - Wound cultures growing staph aureus and enterobacter - Appreciate wound consult - Peripheral pulses not palpable or identifiable with doppler; JORGE A ordered- reveals limited exam with evidence for PVD - Continue Eucerin and elevation (3) Altered mental state Comment: - Baseline mentation unclear, but son reported approx 1 week of AMS prior to admission. Mentation improving, per son. - Likely secondary to UTI - Plan as above (4) Pain of right heel Comment: -R foot x-ray ordered (5) Abnormal chest CT Comment: - CT shows scattered patchy nodular densities in RUL and lower lobes consistent with infectious process, less likely neoplastic - No cough, SOB, hemoptysis, or fever so will not treat for pneumonia at this point - Continue to monitor for symptoms and will likely need f/u imaging outpatient (6) Chronic systolic congestive heart failure Comment: - Significant BLE edema unlikely related to CHF - TTE today: EF 55-60%, no significant valvular abnorms - Not on an JAVI/ARB d/t history of angioedema with enalapril - Continue metoprolol, furosemide, spironolactone (7) Atrial fibrillation Comment: - Rate controlled, but was noted to have pauses on tele 2 nights ago, 20 beats VT today - Not on anticoagulation - Continue metoprolol; dose doubled to home dose of 25 - Mg level ordered (8) Hypertension Comment: - Slightly hypertensive, SBP 180's - Increase metoprolol back to 25 (home dose) - Continue furosemide (9) Diabetes mellitus type 2 Comment: - Recent A1c 8.4% - Adequately controlled - Resume glipizide; continue Lispro SS (10) CAD (coronary artery disease) Comment: -Continue aspirin, atorvastatin, Plavix (11) Peripheral neuropathy Comment: - Continue gabapentin (12) GERD (gastroesophageal reflux disease) Comment: - Continue famotidine (13) Hypothyroidism Comment: - Continue levothyroxine (14) Hyperlipidemia Comment: - Continue atorvastatin (15) DVT prophylaxis Comment: - Heparin SQ (16) Full code status Comment: Status and Disposition: Observation for AMS. Anticipate d/c home vs [place] when medically stable. Unclear if there is enough support at home to keep her there, but son adamant that she return home.
[2018-12-01] MEDS: Furosemide TAB* 20 MG PO SCH (12:35)
[2018-12-01] MEDS ORDERED: Magnesium Sulfate 2 GM IV* 2 GM/50 ML BAG IVPB ONE (16:59)
[2018-12-01] MEDS ORDERED: NS 0.9% 500 ML* 500 ML IV SCH (17:00)
[2018-12-01] MEDS: cefTRIAXone(*) 1 GM in NS 0.9% 50 ML* 50 ML IVPB SCH (20:52)
[2018-12-01] MEDS: Atorvastatin* 10 MG TAB PO SCH (20:54)
[2018-12-02] MEDS: Levothyroxine TAB* 25 MCG TAB PO SCH (05:40)
[2018-12-02] MEDS: Heparin VIAL(*) 5000 UNITS/ML VIAL (FIVE THOUSAND) SUBCUT SCH ×3 (05:40→20:24)
[2018-12-02] MEDS: Senna TAB PO SCH ×2 (08:47→20:23)
[2018-12-02] MEDS: Metoprolol Succinate XL TAB* 25 MG PO SCH (08:47)
[2018-12-02] MEDS: Furosemide TAB* 40 MG PO SCH (08:47)
[2018-12-02] MEDS: Docusate CAP* 100 MG PO SCH ×2 (08:47→20:23)
[2018-12-02] MEDS: Aspirin TAB* 325 MG PO SCH (08:47)
[2018-12-02] MEDS: Gabapentin CAP(*) 300 MG PO SCH ×3 (08:47→20:23)
[2018-12-02] MEDS: glipiZIDE TAB* 5 MG PO SCH ×2 (08:47→17:30)
[2018-12-02] MEDS: Insulin LISPRO* 1 UNITS UNIT SUBCUT SCH ×4 (08:48→20:23)
[2018-12-02] MEDS: Famotidine TAB* 20 MG PO SCH (08:48)
[2018-12-02] MEDS: Clopidogrel TAB* 75 MG PO SCH (08:48)
[2018-12-02] MEDS: Spironolactone TAB* 25 MG PO SCH (08:48)
[2018-12-02] MEDS: Moisturizing CREAM* 120 GM JAR TOPICAL SCH ×2 (09:05→20:23)
[2018-12-02] MEDS: Acetaminophen TAB* 325 MG PO PRN ×3 (11:27→22:47)
[2018-12-02] MEDS: Furosemide TAB* 20 MG PO SCH (13:01)
--- NOTE | 2018-12-02 17:00 | CONSULT ---
Subjective Date of Service: 12/02/18 Interval History: Ms. Tavera is an 87 yo female with PMH significant for CAD, CHF, A fib, HTN, HLD , DM with bilateral LE peripheral neuropathy, hypothyroidism, GERD, and chronic constipation who presented to the emergency room for AMS and was admitted for LE wounds and UTI. Ms. Tavera states that she has had bilateral LE edema for a while and tries to keep her legs elevated. She doesn't apply any dressings to the wounds at home. Patient seen and examined at bedside. Family History: Unchanged from Admission Social History: Unchanged from Admission Past Medical History: Unchanged from Admission Review of Systems - Measurements Intake and Output: Intake and Output Last 24 Hours 11/30/18 12/01/18 12/02/18 12/03/18 06:59 06:59 06:59 06:59 Intake Total 340 1010 2480 740 Balance 340 1010 2480 740 Intake: IV Fluids 480 NS (0.9%) 480 Oral 340 1010 2000 740 Other: Estimated Void Large Large Large Medium # Bowel Movements 0 0 0 0 Estimated Stool Amount Small # Voids 1 1 1 2 - Review of Systems Constitutional Symptoms: Negative: Fever, Other - Chilld Dermatology: Positive: Other - LE with lymphedema and superficial ulcers Endocrinology: Positive: Obesity, Diabetes Mellitus Objective Active Medications: Acetaminophen (Tylenol Tab*) 650 mg PO Q4H PRN Reason: FEVER/PAIN Aspirin (Aspirin Tab*) 325 mg PO QAM ANN Atorvastatin Calcium (Lipitor*) 10 mg PO BEDTIME ANN Clopidogrel Bisulfate (Plavix Tab*) 75 mg PO QAM ANN Dextrose (D50w Syringe 50 Ml*) 12.5 gm IV PUSH .FOR FS < 60 - SS PRN Reason: FS < 60 Docusate Sodium (Colace Cap*) 100 mg PO BID ANN Famotidine (Pepcid Tab*) 20 mg PO QAM ANN Furosemide (Lasix Tab*) 20 mg PO 1200 ANN Furosemide (Lasix Tab*) 40 mg PO QAM ANN Gabapentin (Neurontin Cap(*)) 300 mg PO TID ANN Glipizide (Glucotrol Tab*) 2.5 mg PO QPM ANN Glipizide (Glucotrol Tab*) 10 mg PO DAILY ANN Heparin Sodium (Porcine) (Heparin Vial(*)) 5,000 units SUBCUT Q8HR ANN Ceftriaxone Sodium 1 gm/ (Sodium Chloride) 50 mls @ 200 mls/hr IVPB Q24H ANN Insulin Human Lispro (Humalog*) 0 units SUBCUT ACHS ANN; Protocol Levothyroxine Sodium (Synthroid Tab*) 25 mcg PO 0600 ANN Metoprolol Succinate (Toprol Xl Tab*) 25 mg PO DAILY ANN Multi-Ingredient Ointment (Hydrocerin*) 1 applic TOPICAL BID ANN Senna (Senokot Tab*) 1 tab PO BID ANN Spironolactone (Aldactone Tab*) 25 mg PO QAM [facility] Vital Signs - 8 hr 12/02/18 12/02/18 12/02/18 08:49 11:30 11:48 Temperature 97.3 F Pulse Rate 77 78 Respiratory 18 16 Rate Blood Pressure 133/48 146/33 (mmHg) O2 Sat by Pulse 98 Oximetry 12/02/18 12/02/18 13:01 15:30 Temperature Pulse Rate Respiratory 16 16 Rate Blood Pressure (mmHg) O2 Sat by Pulse Oximetry Oxygen Devices in Use Now: None Appearance: NAD, laying in bed Ears/Nose/Mouth/Throat: Mucous Membranes Moist Extremities: - - Bilateral LE lymphedema Skin: - - See skin note below Neurological: Alert and Oriented x 3 Result Diagrams: 12/01/18 07:26 12/01/18 07:26 Microbiology and Other Data: Microbiology 11/28/18 17:15 Skin and Soft Tissue MRSA/MSSA (PCR - Final Ankle Right Mrsa Negative S.aureus Positive Gram Stain - Final 11/28/18 17:15 Skin and Soft Tissue MRSA/MSSA (PCR - Final Leg Right Mrsa Negative S.aureus Positive Gram Stain - Final Skin Deviation Note - Skin Deviation Findings Posterior lower left leg - There is an ulcer that measures 2.5 cm x 3 cm x 0.1 cm. The wound base is red, there is surrounding tissue that is white. There is serous drainage. The remaining surrounding skin is intact. Not pictured: There is a small ulcer to the posterior right LE, that was unable to be well visualized measured and photographed (as it was difficult to get her positioned well in the bed to see). The wound base was red with small amount of surrounding tissue that was white. Bilateral LE with thick dry skin, there are deep fissures noted on both feet. Except for the 2 wounds noted above the skin is intact. Assessment/Plan: Ms. Tavera is an 87 yo female with PMH significant for CAD, CHF, A fib, HTN, HLD , DM with bilateral LE peripheral neuropathy, hypothyroidism, GERD, and chronic constipation who presented to the emergency room for AMS and was admitted for LE wounds and UTI. 1. Bilateral LEs with open wounds. The wounds were cultured and show multiple organisms, she is receiving ceftriaxone. ABIs - "Limited exam due to compromised acoustic window with evidence for peripheral vascular disease which may reflect inflow disease or intrinsic lower extremity stenoses". Suspect this is secondary to venous stasis, she also has lymphedema to bilateral LEs. Recommend using alginate on the open areas and a dry dressing, change once daily. Encourage patient to keep legs elevated. Apply lotion (Eucerin) to the dry skin, she should try to get a lotion with urea 40 in it for home and this will help to soften the thick skin on her feet. Consider referring to the wound clinic on discharge. She may also benefit from referral to vascular surgery to see if there is an intervention available to help with the blood flow to her legs. 2. Diabetes Mellitus. HgA1C was 8.4 on 11/02/18. Maintain good glycemic control to allow for wound healing. 3. Diet. Consistent carbohydrate diet 4. Code Status. Full code 5. Disposition. Inpatient. Disposition per primary medicine team TIME SPENT: Time for this wound consultation was 25 minutes and 15 minutes was spent with the patient discussing past medical history, assessing, measuring and photographing the wounds. Wound Problem/Plan Is Patient a Wound Clinic Patient: No Attending: Sienna Odom
--- NOTE | 2018-12-02 17:45 | PN ---
Subjective Date of Service: 12/02/18 Interval History: VS: WNL Labs: low Mg yesterday was repleted Pt is laying in bed. She states that she feels well. She has no major complaints today, but does continue to mention that she has pain in the R heel. She denies CP, SOB, cough, abd pain, n/v/d/c, swelling in LE. Family History: Unchanged from Admission Social History: Unchanged from Admission Past Medical History: Unchanged from Admission Objective Active Medications: Acetaminophen (Tylenol Tab*) 650 mg PO Q4H PRN Aspirin (Aspirin Tab*) 325 mg PO QAM ANN Atorvastatin Calcium (Lipitor*) 10 mg PO BEDTIME ANN Clopidogrel Bisulfate (Plavix Tab*) 75 mg PO QAM ANN Dextrose (D50w Syringe 50 Ml*) 12.5 gm IV PUSH .FOR FS < 60 - SS PRN Docusate Sodium (Colace Cap*) 100 mg PO BID ANN Famotidine (Pepcid Tab*) 20 mg PO QAM ANN Furosemide (Lasix Tab*) 20 mg PO 1200 ANN Furosemide (Lasix Tab*) 40 mg PO QAM ANN Gabapentin (Neurontin Cap(*)) 300 mg PO TID ANN Glipizide (Glucotrol Tab*) 2.5 mg PO QPM ANN Glipizide (Glucotrol Tab*) 10 mg PO DAILY ANN Heparin Sodium (Porcine) (Heparin Vial(*)) 5,000 units SUBCUT Q8HR ANN Ceftriaxone Sodium 1 gm/ (Sodium Chloride) 50 mls @ 200 mls/hr IVPB Q24H ANN Insulin Human Lispro (Humalog*) 0 units SUBCUT ACHS ANN; Protocol Levothyroxine Sodium (Synthroid Tab*) 25 mcg PO 0600 ANN Metoprolol Succinate (Toprol Xl Tab*) 25 mg PO DAILY ANN Multi-Ingredient Ointment (Hydrocerin*) 1 applic TOPICAL BID ANN Senna (Senokot Tab*) 1 tab PO BID ANN Spironolactone (Aldactone Tab*) 25 mg PO QAM ANN Vital Signs: Temp Pulse Resp BP Pulse Ox 97.3 F 78 16 146/33 98 12/02/18 11:48 12/02/18 11:48 12/02/18 15:30 12/02/18 11:48 12/02/18 11:48 Oxygen Devices in Use Now: None Appearance: Pt is laying in bed. She appears to be in no acute distress. Eyes: No Scleral Icterus, PERRLA Ears/Nose/Mouth/Throat: Clear Oropharnyx, Mucous Membranes Moist, - - Poor dentition Neck: NL Appearance and Movements; NL JVP, Trachea Midline Respiratory: Symmetrical Chest Expansion and Respiratory Effort, Clear to Auscultation Cardiovascular: NL Sounds; No Murmurs; No JVD, No Edema - Irregular rhythm. Rate controlled. TELE: AF with PVC Abdominal: NL Sounds; No Tenderness; No Distention, No Hepatosplenomegaly Extremities: No Clubbing, Cyanosis, - - B/l LE edematous with thickened skin. Skin is warm and sensation intact b/l. There are 2 ulcer posteriorly. Result Diagrams: 12/01/18 07:26 12/01/18 07:26 Microbiology and Other Data: Microbiology 11/28/18 17:15 Skin and Soft Tissue MRSA/MSSA (PCR - Final Ankle Right Mrsa Negative S.aureus Positive Gram Stain - Final 11/28/18 17:15 Skin and Soft Tissue MRSA/MSSA (PCR - Final Leg Right Mrsa Negative S.aureus Positive Gram Stain - Final Assess/Plan/Problems-Billing Assessment: Ms. Tavera is an 87 yo F with PMH of CAD, CHF, afib, HTN, HLD, DM, peripheral neuropathy, and GERD; who presented to the ED with altered mental status and was admitted because of the concern for LE wounds and UTI. - Patient Problems (1) UTI (urinary tract infection) Comment: - Malodorous urine x1 week prior to admission, multiple UTIs in the past - Urine culture susceptible to ceftriaxone - Given ceftriaxone IM x1 on admission - IV access gained- continue Ceftriaxone (2) Lower extremity edema Comment: - Small open areas noted on posterior calves on admission with reported weeping at home, but no obvious infection; wound cultures growing staph aureus and enterobacter - Appreciate wound consult recommendations. Alginate and dry dressing, change once daily. LE elevated. Apply lotion (Eucerin) to the dry skin - Peripheral pulses not palpable or identifiable with doppler; JORGE A ordered- reveals limited exam with evidence for PVD (3) Altered mental state Comment: - Baseline mentation unclear, but son reported approx 1 week of AMS prior to admission. Mentation improving, per son. - Likely secondary to UTI - Plan as above (4) Pain of right heel Comment: -R foot x-ray reveals decreased bone density, potential stress reaction with healing response at fifth metatarsal, no fx evident at calcaneous (5) Abnormal chest CT Comment: - CT shows scattered patchy nodular densities in RUL and lower lobes consistent with infectious process, less likely neoplastic - No cough, SOB, hemoptysis, or fever so will not treat for pneumonia at this point - Continue to monitor for symptoms and will likely need f/u imaging outpatient (6) Chronic systolic congestive heart failure Comment: - Significant BLE edema unlikely related to CHF - TTE today: EF 55-60%, no significant valvular abnorms - Not on an JAVI/ARB d/t history of angioedema with enalapril - Continue metoprolol, furosemide, spironolactone (7) Atrial fibrillation Comment: - Rate controlled, but was noted to have pauses on tele 2 nights ago, 20 beats VT today - Not on anticoagulation - Continue metoprolol; dose doubled to home dose of 25 - Mg level ordered (8) Hypertension Comment: - Slightly hypertensive, SBP 180's - Increase metoprolol back to 25 (home dose) - Continue furosemide (9) Diabetes mellitus type 2 Comment: - Recent A1c 8.4% - Adequately controlled - Resume glipizide; continue Lispro SS (10) CAD (coronary artery disease) Comment: -Continue aspirin, atorvastatin, Plavix (11) Peripheral neuropathy Comment: - Continue gabapentin (12) GERD (gastroesophageal reflux disease) Comment: - Continue famotidine (13) Hypothyroidism Comment: - Continue levothyroxine (14) Hyperlipidemia Comment: - Continue atorvastatin (15) DVT prophylaxis Comment: - Heparin SQ (16) Full code status Comment: Status and Disposition: Observation for AMS. Anticipate d/c home vs [place] when medically stable. Unclear if there is enough support at home to keep her there, but son adamant that she return home.
[2018-12-02] MEDS: cefTRIAXone(*) 1 GM in NS 0.9% 50 ML* 50 ML IVPB SCH (20:18)
[2018-12-02] MEDS: Atorvastatin* 10 MG TAB PO SCH (20:23)
[2018-12-03] MEDS: Heparin VIAL(*) 5000 UNITS/ML VIAL (FIVE THOUSAND) SUBCUT SCH ×2 (05:12→13:11)
[2018-12-03] MEDS: Levothyroxine TAB* 25 MCG TAB PO SCH (05:12)
[2018-12-03 07:55] VITALS: BP 131/53
[2018-12-03] MEDS: Insulin LISPRO* 1 UNITS UNIT SUBCUT SCH ×2 (08:06→12:15)
[2018-12-03] MEDS: Clopidogrel TAB* 75 MG PO SCH (08:32)
[2018-12-03] MEDS: glipiZIDE TAB* 5 MG PO SCH (08:32)
[2018-12-03] MEDS: Famotidine TAB* 20 MG PO SCH (08:33)
[2018-12-03] MEDS: Aspirin TAB* 325 MG PO SCH (08:33)
[2018-12-03] MEDS: Gabapentin CAP(*) 300 MG PO SCH ×2 (08:34→13:10)
[2018-12-03] MEDS: Furosemide TAB* 40 MG PO SCH (08:34)
[2018-12-03] MEDS: Spironolactone TAB* 25 MG PO SCH (08:38)
[2018-12-03] MEDS: Senna TAB PO SCH (08:38)
[2018-12-03] MEDS: Docusate CAP* 100 MG PO SCH (08:39)
[2018-12-03] MEDS: Metoprolol Succinate XL TAB* 25 MG PO SCH (08:39)
[2018-12-03] MEDS: Moisturizing CREAM* 120 GM JAR TOPICAL SCH (09:01)
[2018-12-03] MEDS: Furosemide TAB* 20 MG PO SCH (12:15)
--- NOTE | 2018-12-03 17:50 | DS ---
DISCHARGE SUMMARY: DATE OF ADMISSION: 11/28/18 DATE OF DISCHARGE: 12/03/18 PRIMARY CARE PROVIDER: Dr. Kathy Marie. OTHER PROVIDER: [place] [facility] [place]ENDING PHYSICIAN: Dr. Josiah Pearl * (dictated by HIEU Cote). PRIMARY DIAGNOSES: 1. Urinary tract infection. 2. Altered mental status. 3. Lower extremity edema. SECONDARY DIAGNOSES: 1. Coronary artery disease. 2. Congestive heart failure. 3. Atrial fibrillation. 4. Hypertension. 5. Hyperlipidemia. 6. Diabetes mellitus with bilateral lower extremity neuropathy. 7. Hypothyroidism. 8. Gastroesophageal reflux disease. 9. Chronic constipation. STUDIES WHILE IN THE HOSPITAL: 1. Chest x-ray, 11/28/18, impression: Right basilar atelectasis with suggestion of nodularity, recommend PA and lateral chest films for further evaluation. 2. Right lower x-ray, 11/28/18, impression: Soft tissue swelling. No specific evidence for osteomyelitis. 3. Brain CT, 11/28/18, impression: No evidence for acute intracranial abnormality. Old right occipital lobe infarct. 4. Chest CT, 11/28/18, impression: There are scattered patchy nodular densities in the right upper and lower lobes most consistent with an infection, less likely a neoplastic process, recommend followup studies to resolution. 5. Transthoracic echocardiogram, 11/29/18, conclusion: The study is technically difficult. The left ventricular chamber size is normal. Mild concentric left ventricular hypertrophy is observed. Global left ventricular wall motion and contractility are within normal limits. There is normal left ventricular systolic function. The estimated ejection fraction is 55% to 60%. The left atrium is mildly dilated. The right ventricular cavity size is normal. The right ventricular global systolic function is low normal. No significant valvular abnormality is noted. Normal estimated PA systolic pressure. Definity was used to optimize the study. Compared to prior study from March 2012, no significant changes noted. 6. Ankle-brachial indices, 11/30/18, impression: Limited exam due to compromised acoustic window with evidence for peripheral vascular disease, which may reflect inflow disease or intrinsic lower extremity stenosis. 7. Foot x-ray, 12/01/18, right foot 3 views, impression: Marked diffuse soft tissue swelling, correlate for systemic etiology. Diffuse decreased bone density, potential stress reaction with healing response at the fifth metatarsal. No discrete macroscopic fracture evident at the calcaneus or remainder of the foot. DISCHARGE MEDICATIONS: Home medications: 1. Gabapentin 300 mg p.o. t.i.d. 2. Glipizide 10 mg p.o. q.a.m. 3. Glipizide 2.5 mg p.o. q.p.m. before dinner. 4. Spironolactone 25 mg p.o. q.a.m. 5. Sennosides 8.6 mg p.o. b.i.d. 6. Furosemide 40 mg p.o. q.a.m. 7. Furosemide 20 mg p.o. at 1200. 8. Bismuth subsalicylate 1 dose p.o. q.12 hours p.r.n. indigestion. 9. Polyethylene glycol 3350, 17 g p.o. every other day p.r.n. constipation. 10. Tramadol 50 mg p.o. q.8 hours. 11. Levothyroxine 25 mcg p.o. at 0800. 12. Metoprolol succinate XL 25 mg p.o. q.a.m. 13. Famotidine 20 mg p.o. q.a.m. 14. Atorvastatin 10 mg p.o. at bedtime. 15. Docusate 100 mg p.o. b.i.d. 16. Clopidogrel 75 mg p.o. q.a.m. 17. Aspirin 325 mg p.o. q.a.m. 18. Acetaminophen 650 mg p.o. q.6 hours p.r.n. 19. New home medication: Cefpodoxime 200 mg p.o. q.12 hours. HISTORY OF PRESENT ILLNESS/HOSPITAL COURSE: Ms. Tavera is an 87-year-old female with a past medical history of CAD, CHF, AF, hypertension, diabetes, chronic lower extremity leg ulcers x2 years, who presented to the ER with an open sore on her lower extremities. The son is accompanying the patient. He reports altered mental status x4 days and strong urine odor x1 week and open sore on the posterior right lower extremity with drainage. He was referred by Ms. Tavera 's primary care physician. The patient was evaluated in the ER and admitted with concerns for altered mental status, urinary tract infection, and lower extremity edema with open wounds. The patient was found to have a urinary tract infection. She was initially treated with ceftriaxone. She continued treatment throughout her stay. Her altered mental status improved throughout her stay. Her son reports that she appears to be back to baseline at the end of her stay. It appears that her altered mental status was a result of urinary tract infection. The patient was also noted to have significant bilateral lower extremity edema with skin thickening and wounds at the posterior aspect of both lower extremities. She reported pain at those areas. She did not display any signs or symptoms of an infectious process with regards to the open wounds. The wounds were treated initially with Eucerin. A wound consult was ordered. In consultation, they recommended alginate and a dry dressing changed once daily, lower extremity elevation and Eucerin application to the lower extremities. They recommended a lotion with urea 40 in it outpatient to soften the area. The patient will be referred to the Wound Clinic. The patient's son states that she does follow up at the Wound Clinic, but that she has not been there since the summer. It was also recommended that she follow up with a vascular surgeon to see if there is any intervention available for venous stasis and lymphedema. The patient was noted to have an abnormal chest CT that showed scattered patchy nodular densities in the right upper and lower lobes consistent with an infectious process, less likely neoplastic. They recommended followup imaging outpatient. Throughout the patient's stay, she denied cough, shortness of breath , hemoptysis, or fever. She had no leukocytosis. Breath sounds were clear throughout her stay. The patient was placed on telemetry due to atrial fibrillation. It was noted that she had pauses overnight. She was restarted on her home dose of metoprolol. She then was noted to have approximately 12 beats of V-tach. Her dose of metoprolol was returned to normal dose of 25. Since that time, she has been in and out of atrial fibrillation versus normal sinus rhythm. On the day of discharge, the patient's mentation is much improved. She is bright and responding to questions well. She has a negative review of systems except she complains of "heel pain." When explored, it appears that she has pain where the open wound is on the posterior left lower extremity. She denies chest pain, shortness of breath, fever, cough, abdominal pain, nausea, vomiting, diarrhea, constipation. She continues to have pain in the lower extremities, which she describes as a numbness and tingling feeling. This is chronic in nature. Ms. Tavera is stable for discharge. PHYSICAL EXAMINATION: Vital signs are temperature 98.3 oral, heart rate 77, respiratory rate 18, oxygen saturation 98% on room air, blood pressure 131/53. General: Ms. Tavera is a well-developed, well-nourished, morbidly obese woman, who is sitting up in bed. She is in no acute distress. She appears well. She is pleasant and cooperative. HEENT: Visual núñez are grossly intact. The pupils are equally round and reactive to light. Extraocular movements are intact. Hearing is poor. Oral mucous membranes are moist. Cardiovascular: Rate controlled, irregular rhythm. S1, S2 present. No murmurs, rubs, or gallops. No JVD. Respiratory: Symmetrical chest expansion. No use of accessory muscles. Lungs clear to auscultation. No rhonchi, wheezes, or rales. Abdomen: Bowel sounds in all quadrants. Abdomen is obese, soft, and nontender to palpation. There is no suprapubic tenderness. No hepatospleno- megaly. Extremities: Skin is manager nursing both upper and lower extremities. There is bilateral lower extremity thickening of the skin with deep fissures that are unopened and without drainage. There are bilateral wounds on the posterior lower extremities. Right lower extremity wound is approximately 1 cm in diameter and is above the posterior ankle. Left lower extremity wound is approximately 2 cm in diameter and is below the knee posteriorly. Both wounds are pink in the center with serosanguineous drainage and surrounded by white skin tissue. There are no signs of infection. Neuro: The patient is awake. She is alert and she is oriented to herself. She is able to move all of her extremities. DISCHARGE PLAN: Ms. Tavera will be discharged to home in the care of her son. ACTIVITY: As tolerated. DIET: Heart-healthy, ADA/diabetic diet. MEDICATIONS: As above. EDUCATION: 1. Follow up with primary care physician in 4 to 7 days. 2. Follow up with Wound Clinic in 4 to 7 days. 3. Follow up with Vascular Surgery to discuss interventions for improvement of blood flow to the lower extremities. 4. Start cefpodoxime 200 mg q.12 hours, first dose at 2000, continue x7 days. 5. Followup CT chest studies, discuss this with primary care physician. 6. Wound care: Alginate and dry dressing change daily to open wounds on backs of lower extremities. Elevate lower extremities. Lotion to dry skin. Try to get a lotion with urea 40 in it for home and this will help to soften the thick skin on her feet. Follow up with Wound Clinic within 1 week of discharge. 7. Return to the ER or nearest hospital if you experience any worsening of symptoms, shortness of breath, lightheadedness, dizziness, chest discomfort, high fevers, chills, night sweats, loss of consciousness, or any other worrisome signs or symptoms. This is a summarized report of a complex medical history and hospital stay. For further details, please see the entire medical record. TIME SPENT: Approximately 35 minutes was spent on this discharge, greater than half of that time was spent [id number] with the patient and her son discussing discharge plans and instructions. HIEU EATON [id number]/CPS #: [id number] JOSEFA
== END 2018-12-03 14:05 | disposition home health service (06) | DRG 690 ==
LOC: ED 13:36 → MED 20:26 → OBSVTOIN 11-30 08:24
PROVIDERS: ADMIT Internal Medicine; ATTEND Internal Medicine
DX: N39.0 Urinary tract infection, site not specified (principal); J98.11 Atelectasis; L97.229 Non-pressure chronic ulcer of left calf with unspecified severity; L97.219 Non-pressure chronic ulcer of right calf with unspecified severity; I50.22 Chronic systolic (congestive) heart failure; I11.0 Hypertensive heart disease with heart failure; I48.91 Unspecified atrial fibrillation; E11.622 Type 2 diabetes mellitus with other skin ulcer; E11.42 Type 2 diabetes mellitus with diabetic polyneuropathy; E05.00 Thyrotoxicosis with diffuse goiter without thyrotoxic crisis or storm; E66.01 Morbid (severe) obesity due to excess calories; B96.20 Unspecified Escherichia coli [E. coli] as the cause of diseases classified elsewhere; R41.82 Altered mental status, unspecified; R60.0 Localized edema; I25.10 Atherosclerotic heart disease of native coronary artery without angina pectoris; E78.5 Hyperlipidemia, unspecified; E03.9 Hypothyroidism, unspecified; K21.9 Gastro-esophageal reflux disease without esophagitis; B96.89 Other specified bacterial agents as the cause of diseases classified elsewhere; B95.61 Methicillin susceptible Staphylococcus aureus infection as the cause of diseases classified elsewhere; K59.09 Other constipation; M79.671 Pain in right foot; R91.8 Other nonspecific abnormal finding of lung field; Z68.39 Body mass index [BMI] 39.0-39.9, adult; Z79.84 Long term (current) use of oral hypoglycemic drugs; Z79.1 Long term (current) use of non-steroidal anti-inflammatories (NSAID); Z79.82 Long term (current) use of aspirin; Z79.899 Other long term (current) drug therapy; Z88.8 Allergy status to other drugs, medicaments and biological substances; Z82.49 Family history of ischemic heart disease and other diseases of the circulatory system; Z80.3 Family history of malignant neoplasm of breast
CPT/HCPCS: 36415; 70450; 71045; 71250; 80048; 80053; 81003; 81015; 82140; 83605; 83735; 83880; 84484; 85025; 85610; 85730; 86140; 87040; 87070; 87076; 87077; 87086; 87186; 87205; 87640; 87641; 93005; 93306; 93922; 99284; A9270-GY; C8929; G0378; J0456; J0696; J1644; J3010; J3475

== ENCOUNTER 2019-03-12 12:49 | Inpatient (IN) | payer MEDICARE, OTHER ==
--- NOTE | 2019-03-12 13:24 | ED ---
Lower Extremity - HPI Summary HPI Summary: This patient is a 88 year old F presenting to [facility] [place] accompanied by her family with a chief complaint of wounds on her lower extremity being infested with maggots since this morning. The pt is unable to provide any history and is a level 5 caveat. Her son was able to provide information. He stated that she has nurses visit the house 2 times a week to tend to her legs and clean out the wounds. He stated that she has diabetes and either hyperthyroidism or hypothyroidism. He stated that she is usually more alert but has a UTI and only has taken the first dosage on the treatment. He stated that the wound clinic doctor she visits cleaned out the wounds when she visited last time. LEVEL 5 CAVEAT DUE TO AMS FROM PREVIOUS DIAGNOSED UTI - History of Current Complaint Chief Complaint: EDExtremityLower Stated Complaint: LEG WOUNDS PER EMS Time Seen by Provider: 03/12/19 12:52 Hx Obtained From: Family/Publication Specialist - SON Hx From Patient Unobtainable Due To: Altered Mental Status Mechanism Of Injury: Other - wounds on R ankle and L calf with maggots Severity Initially: Severe Severity Currently: Severe Pain Intensity: 8 Pain Scale Used: 0-10 Numeric Timing: Constant Associated Signs And Symptoms: Positive: Other - maggots in the wounds - Allergies/Home Medications Allergies/Adverse Reactions: Allergies Allergy/AdvReac Type Severity Reaction Status Date / Time enalapril Allergy Severe Swelling Verified 11/29/18 02:44 Home Medications: Home Medications Cholecalciferol (Vitamin D3) [Vitamin D3] 800 unit PO DAILY 03/12/19 [History Confirmed 03/12/19] Gabapentin CAP(*) [Neurontin 300 CAP(*)] 300 mg PO TID 03/12/19 [History Confirmed 03/12/19] Insulin Glargine,Hum.rec.anlog [Basaglar Kwikpen] 8 unit SUBCUT DAILY 03/12/19 [ History Confirmed 03/12/19] Lanolin/Mineral Oil [Eucerin Original Healing] 1 applic TOPICAL BID 03/12/19 [ History Confirmed 03/12/19] Lidocaine 1 gm TOPICAL TID PRN 03/12/19 [History Confirmed 03/12/19] Senna/Docusate (NF) [Sennokot-S] 1 - 2 tab PO BID 03/12/19 [History Confirmed ] PMH/Surg Hx/FS Hx/Imm Hx Previously Healthy: No - FULL SURGERY IS UNOBTAINABLE DUE TO EXTREMIS Endocrine/Hematology History: Reports: Hx Diabetes Cardiovascular History: Reports: Hx Congestive Heart Failure, Hx Hypertension, Other Cardiovascular Problems/Disorders - CAD GI History: Reports: Other GI Disorders - LEFT FLANK PAIN RADIATES TO BACK / NAUSEA History: Reports: Hx Dialysis - NIDDM Musculoskeletal History: Reports: Hx Arthritis, Hx Back Problems Sensory History: Reports: Hx Contacts or Glasses - reading, Hx Hearing Aid, Hx Hearing Problem - hearing device, son will bring in tmrw Opthamlomology History: Reports: Hx Contacts or Glasses - reading Psychiatric History: Reports: Hx Anxiety - Surgical History Surgical History: Yes Surgery Procedure, Year, and Place: Lasix Infectious Disease History: No Infectious Disease History: Denies: Traveled Outside the [place] in Last 30 Days - Family History Known Family History: Positive: Cardiac Disease, Diabetes - Social History Alcohol Use: None Hx Substance Use: No Substance Use Type: Reports: None Hx Tobacco Use: No Smoking Status (MU): Never Smoked Tobacco Review of Systems - ROS Summary Review of Systems Summary: PT IS A LEVEL 5 CAVEAT DUE TO AMS FROM A DIAGNOSED UTI. Positive: Other - wounds on her R ankle and her L calf All Other Systems Reviewed And Are Negative: No Physical Exam - Summary Physical Exam Summary: Constitutional: Well-developed, Well-nourished, Alert. (-) Distressed Skin: Warm, Dry, Quarter sized ulcer stage 2 on the L posterior calf 4cm x 12cm opened wound on her R medial calf that has maggots protruding from it HENT: Normocephalic; Atraumatic Eyes: Conjunctiva normal Neck: Musculoskeletal ROM normal neck. (-) JVD, (-) Stridor, (-) Tracheal deviation Cardio: Rhythm regular, rate normal, Heart sounds normal; Intact distal pulses; The pedal pulses are 2+ and symmetric. Radial pulses are 2+ and symmetric. (-) Murmur Pulmonary/Chest wall: Effort normal. (-) Respiratory distress, (-) Wheezes, (-) Rales Abd: Soft, (-) tenderness, (-) Distension, (-) Guarding, (-) Rebound Musculoskeletal: (-) Edema Lymph: (-) Cervical adenopathy Neuro: Alert, Oriented x3 Psych: Mood and affect Normal Triage Information Reviewed: Yes Vital Signs On Initial Exam: Initial Vitals Temp Pulse Resp BP Pulse Ox 97.4 F 77 10 130/48 100 03/12/19 12:54 03/12/19 12:54 03/12/19 12:54 03/12/19 12:54 03/12/19 12:54 Vital Signs Reviewed: Yes Diagnostics - Vital Signs Vital Signs Temp Pulse Resp BP Pulse Ox 03/12/19 12:54 97.4 F 77 10 130/48 100 - Laboratory Result Diagrams: 03/12/19 14:55 03/12/19 14:55 Lab Statement: Any lab studies that have been ordered have been reviewed, and results considered in the medical decision making process. - Radiology CXR Radiology Interpretation Completed By: Radiologist Summary of Radiographic Findings: Low lung capacity, Small R lung infiltrate. ED physician has reviewed this report. - EKG 1351 Cardiac Rate: NL - 72 BPM EKG Rhythm: Atrial Fibrillation Summary of EKG Findings: NSR at 72 BPM with atrial flutter with predominant 3:1 AV Block and no STEMI. Interpreted by Dr. Krissy Odell 03/12/19. Lower Extremity Course/Dx - Course Course Of Treatment: This patient is a 88 year old F presenting to [facility] accompanied by her family with a chief complaint of wounds on her lower extremity being infested with maggots since this morning. The pt is unable to provide any history and is a level 5 caveat. Her PE found 2 sores on her legs: Quarter sized ulcer stage 2 on the L posterior calf. 4cm x 12cm opened wound on her R medial calf that has maggots protruding from it. The wound her R medial calf was cleaned and tweezers were used to remove the maggots on the top of the skin. 6 maggots were removed from the wound during the course of cleaning with chlorhexidine. Her EKG shows a NSR at 72 BPM with atrial flutter with predominant 3:1 AV Block and no STEMI. Her CXR shows low lung capacity and small amount of R lung infiltrate. She has abnormal lab values in BUN, Creatinine and BUN/Creatinine ratio. She will be admitted to [facility] for further care by Dr. Blanco, Hospitalist, with a Dx of Like Celluitis with maggot infection. - Diagnoses Provider Diagnoses: Bilateral cellulitis of lower leg, Maggot infestation Discharge - Sign-Out/Discharge Documenting (check all that apply): Patient Departure - admitted Patient Received Moderate/Deep Sedation with Procedure: No - Discharge Plan Condition: Stable Disposition: ADMITTED TO [facility] Referrals: Kathy Marie MD [Primary Care Provider] - - Attestation Statements Document Initiated by Scribe: Yes Documenting Scribe: Josef Bonds Provider For Whom Scribe is Documenting (Include Credential): Judson Rey MD Scribe Attestation: Josef Bajwa, scribed for Judson Rey MD on 03/12/19 at 1746. Status of Scribe Document: Ready
[2019-03-12] MEDS ORDERED: Clindamycin 900 MG IVPREMIX(* 900 MG/50 ML SDV IV ONE (13:25)
[2019-03-12 15:34] LABS: Albumin 3.8 g/dL (3.2-5.2); Albumin/Globulin Ratio 1.2 (1-3); BUN/Creatinine Ratio 28.9 (8-20); Calcium 9.1 mg/dL (8.6-10.3); EGFR African American 65.6 (>60); EGFR Non-African American 54.2 (>60); Globulin 3.1 g/dL (2-4); Potassium 3.8 mmol/L (3.5-5.0); Total Bilirubin 0.4 mg/dL (0.2-1.0); Total Protein 6.9 g/dL (6.4-8.9)
[2019-03-12 15:35] LABS: Troponin I 0.02 ng/mL (<0.04)
[2019-03-12 15:37] LABS: Activated Partial Thrombo Time 34.4 seconds (26.0-38.0); INR 1.14 (0.82-1.09)
[2019-03-12 15:48] LABS: ABS Eosinophils 0.1 10^3/ul (0-0.6); ABS Lymphocytes 1.5 10^3/ul (1.0-4.8); ABS Monocytes 0.5 10^3/ul (0-0.8); ABS Neutrophils 4.4 10^3/ul (1.5-7.7); Eosinophil % 1.6 %; Hematocrit 32 % (35-47); Lymphocyte % 22.6 %; Mean Corpuscular HGB Conc 31 g/dL (31-36); Mean Corpuscular Hemoglobin 25 pg (27-31); Mean Corpuscular Volume 80 fL (80-97); Mean Platelet Volume 9.4 fL (7.4-10.4); Nucleated Red Blood Cells % 0.1; Platelet Count 162 10^3/uL (150-450); Red Cell Distribution Width 16 % (10-15); White Blood Count 6.4 10^3/uL (3.5-10.8)
[2019-03-12] MEDS ORDERED: Acetaminophen TAB* 325 MG PO PRN ×2 (18:36→18:43)
[2019-03-12] MEDS ORDERED: Dextrose 50% VIAL 50 ml IV PUSH PRN (18:47)
[2019-03-12] MEDS ORDERED: Vancomycin(*) 1,000 MG in NS 0.9% 250 ML* 250 ML IVPB ONE (18:49)
[2019-03-12] MEDS ORDERED: Vancomycin(*) 0 MG in NS 0.9% 250 ML* 250 ML IVPB SCH (19:00)
[2019-03-12] MEDS ORDERED: Vancomycin(*) 1,000 MG BAG/ADDV IVPB ONE (19:00)
[2019-03-12] MEDS ORDERED: Vancomycin per Pharmacy* NOTE FOLLOW UP PRN (20:21)
[2019-03-12] MEDS ORDERED: Cefepime 2 GM in Dextrose(*) 2 GM/50 ML BAG IV SCH (20:30)
[2019-03-12] MEDS ORDERED: Vancomycin 1500 MG IV - x ONCE IVPB ONE ×2 (20:30)
[2019-03-12] MEDS ORDERED: metroNIDAZOLE IV 500 MG/100ML* 500 MG/100 ML BAG IVPB SCH (21:00)
--- NOTE | 2019-03-12 21:20 | HP ---
CC: Dr. Kathy Marie * HISTORY AND PHYSICAL: DATE OF ADMISSION: 03/12/19 PRIMARY CARE PROVIDER: Dr. Kathy Marie. ATTENDING PHYSICIAN: Dr. Suha Monroy * (dictated by Ev Aguilera NP). CHIEF COMPLAINT: Bilateral leg wounds/cellulitis. HISTORY OF PRESENT ILLNESS: Ms. Tavera is an 88-year-old female with a past medical history significant for CAD, CHF, AFib, hypertension, hyperlipidemia, diabetes, hypothyroid, GERD, constipation, who presented to the emergency department today with her family with complaints of wounds on her lower extremities being infected with maggots since this morning. Her son reports that the visiting nurses come to the house 2 times a week to tend to her legs and clean out the wound on her left posterior calf. ED nurse reports that she spoke to [facility] and they have not been tending to the wound on her right calf as they were unaware of this wound. It should also be noted that the patient's son reports she was recently started on treatment for UTI by her primary care. Specifically yesterday, she was provided with a prescription of Cipro 250 mg b.i.d. and had her first dose today. While in the emergency department, the patient was evaluated by the ED provider. She was noted to have a wound on her right medial/posterior ankle and left calf, both of which had maggots present. ED provider removed 6 maggots during the course of her wound cleaning from both wounds. While in the emergency room, the patient also had an EKG, which showed normal sinus rhythm with aflutter. The patient had a chest x-ray which showed low lung capacity, a small amount of right lung infiltrate. She had labs, which revealed normocytic anemia, mildly elevated BUN and creatinine, and elevated glucose. Given these findings, the hospitalists were asked to evaluate for admission. PAST MEDICAL HISTORY: 1. CAD. 2. CHF. 3. Atrial fibrillation. 4. Hypertension. 5. Hyperlipidemia. 6. Diabetes. 7. Hypothyroid. 8. GERD. 9. Chronic constipation. PAST SURGICAL HISTORY: None. HOME MEDICATIONS: 1. Cipro 500 mg p.o. b.i.d. 2. Glipizide 10 mg p.o. q.a.m. 3. Glipizide 2.5 mg p.o. at bedtime. 4. MiraLAX 17 g p.o. daily. 5. Clopidogrel 75 mg p.o. q.a.m. 6. Tramadol 50 to 100 p.o. q.8 hours MDD 300. 7. Famotidine 20 mg p.o. q.a.m. 8. Aspirin 325 mg p.o. q.a.m. 9. Colace 100 mg p.o. b.i.d. 10. Levothyroxine 25 mcg p.o. q.a.m. 11. Lipitor 10 mg p.o. bedtime. 12. Vitamin D3, 800 units p.o. daily. 13. Metoprolol succinate XL 25 mg p.o. daily. 14. Eucerin Original Healing 1 application topical b.i.d. 15. Aldactone 25 mg p.o. q.a.m. 16. Gabapentin 300 mg p.o. t.i.d. 17. Lasix 20 mg p.o. 12 noon. 18. Lasix 40 mg p.o. q.a.m. 19. Senna/docusate 1 to 2 tabs p.o. b.i.d. 20. Lidocaine 1 g topical t.i.d. p.r.n. 21. Insulin glargine 8 units subcu daily. 22. Acetaminophen 650 mg p.o. q.6 hours p.r.n. ALLERGIES: ENALAPRIL. FAMILY HISTORY: Mother had a history of congestive heart failure. No reported diabetes. Grandmother had a history of breast cancer. SOCIAL HISTORY: The patient denies tobacco use. The patient denies alcohol use. The patient denies illicit drug use. The patient lives with her son. Her surrogate decision maker in the event she is unable to make her own decisions will be her son. She is a full code. REVIEW OF SYSTEMS: The patient denies fevers, anorexia, chest pain, cough, shortness of breath, nausea, vomiting, diarrhea or dysuria. A 14-point of review of systems was completed and all others were negative. PHYSICAL EXAMINATION GENERAL: Ms. Tavera is an 88-year-old female, who is sitting in the ED stretcher. Appears to be in no acute distress. Appears stated age. HEENT: EOMs intact. PERRLA. Oral mucosa is moist without lesions. Posterior pharynx is clear. NECK: Supple. No lymphadenopathy. RESPIRATORY: Lungs are clear to auscultation. No wheezes, rhonchi or rales. CARDIAC: S1, S2 present. Regular rate and rhythm. No murmurs, rubs or gallops. ABDOMEN: Soft, nontender. Bowel sounds normoactive. EXTREMITIES: The patient has nonpitting edema to bilateral lower extremities. The patient has a 4 cm x 6 cm open wound to her right medial calf and a quarter- sized ulcer to left posterior calf. MUSCULOSKELETAL: No pain or deformities. NEURO: Neuro exam is grossly intact. No focal deficits or weakness. SKIN: Please see extremities. The remainder of skin is clean, dry, and intact. DIAGNOSTIC STUDIES/LAB DATA: WBC 6.4, hemoglobin 10, hematocrit 32, platelets 162. Sodium 141, potassium 3.8, chloride 104, carbon dioxide 30, BUN 28, creatinine 0.97, glucose 109. ASSESSMENT AND PLAN: Ms. Tavera is an 88-year-old female with a past medical history significant for coronary artery disease, congestive heart failure, atrial fibrillation, hypertension, hyperlipidemia, diabetes, hypothyroid, gastroesophageal reflux disease, chronic constipation, who presents to the emergency department today with bilateral lower extremity wounds with maggots present. The patient will be admitted observation. 1. Bilateral lower extremity wounds: The patient had maggots removed in the emergency department and the wounds were clean. Unfortunately, it does not appear that wound culture was obtained at that time. Therefore, I have ordered a wound culture to be obtained now, also it might be a low yield given they were cleaned with chlorhexidine in the emergency department. Given that maggots were present and concern for cellulitis, I will start the patient on broad-antibiotics including vanco, cefepime, Flagyl. My hope is that these can be downgraded as soon as possible. 2. Coronary artery disease: The patient has no chest pain. The patient's troponin is negative. We will continue the patient's home medications of clopidogrel, aspirin, atorvastatin. 3. Congestive heart failure: The patient does not appear to be in congestive heart failure exacerbation at this time. We will continue the patient's metoprolol, spironolactone, Lasix. I have ordered strict I's and O's. I have ordered daily weights. 4. Atrial fibrillation: We will continue the patient's metoprolol and aspirin. 5. Hyperlipidemia. We will continue the patient's statin. 6. Diabetes: While the patient is inpatient, I will hold her glipizide and order sliding scale lispro. I will continue the patient's home glargine 8 units subcu daily. 7. Hypothyroid: We will continue the patient's Synthroid. 8. Gastroesophageal reflux disease: We will continue the patient's Pepcid. 9. Chronic constipation: We will continue the patient's home bowel regimens. 10. FEN: The patient will be placed on a heart-healthy diet. 11. DVT prophylaxis: Based on the DVT Risk Assessment, the patient is at high risk. I will place the patient on subcu heparin. TIME SPENT: Approximately 65 minutes were spent on this admission, greater than half the time was spent with the patient obtaining my history, performing physical exam, and reviewing my plan of care. This case has been reviewed with my attending, Dr. Margarette Monroy, who is agreement with my plan of care. Reviewed by EV AGUILERA NP 03/29/19 @ [id number] [id number]/[facility] #: [id number] JOSEFA
[2019-03-12] MEDS ORDERED: Vancomycin(*) 750 MG in NS 0.9% 250 ML* 250 ML IVPB ONE (21:30)
[2019-03-12] MEDS: Insulin LISPRO* 1 UNITS UNIT SUBCUT SCH (22:03)
[2019-03-12] MEDS: Atorvastatin* 10 MG TAB PO SCH (22:11)
[2019-03-12] MEDS: Gabapentin CAP(*) 300 MG PO SCH (22:11)
[2019-03-12] MEDS: Heparin VIAL(*) 5000 UNITS/ML VIAL (FIVE THOUSAND) SUBCUT SCH (22:13)
[2019-03-12] MEDS: Docusate CAP* 100 MG PO SCH (22:13)
[2019-03-13] MEDS ORDERED: Cefepime 2 GM in Dextrose(*) 2 GM/50 ML BAG IV SCH (01:00)
[2019-03-13] MEDS ORDERED: metroNIDAZOLE IV 500 MG/100ML* 500 MG/100 ML BAG IVPB SCH (02:00)
[2019-03-13] MEDS: Heparin VIAL(*) 5000 UNITS/ML VIAL (FIVE THOUSAND) SUBCUT SCH ×3 (05:21→22:46)
[2019-03-13] MEDS: Levothyroxine TAB* 25 MCG TAB PO SCH (05:21)
[2019-03-13] MEDS: Insulin LISPRO* 1 UNITS UNIT SUBCUT SCH ×4 (08:07→22:45)
[2019-03-13] MEDS ORDERED: Spironolactone TAB* 25 MG PO SCH (09:00)
[2019-03-13] MEDS ORDERED: Furosemide TAB* 40 MG PO SCH (09:00)
[2019-03-13] MEDS: Clopidogrel TAB* 75 MG PO SCH (09:27)
[2019-03-13] MEDS: Polyethylene Glycol 3350* 17 GM PACKET PO SCH (09:27)
[2019-03-13] MEDS: Famotidine TAB* 20 MG PO SCH (09:27)
[2019-03-13] MEDS: Aspirin TAB* 325 MG PO SCH (09:27)
[2019-03-13] MEDS: Metoprolol Succinate XL TAB* 25 MG PO SCH (09:27)
[2019-03-13] MEDS: Gabapentin CAP(*) 300 MG PO SCH ×3 (09:27→22:42)
[2019-03-13] MEDS: Cholecalciferol TAB* 400 UNIT PO SCH (09:27)
[2019-03-13] MEDS: Docusate CAP* 100 MG PO SCH ×2 (09:27→22:42)
[2019-03-13] MEDS: Insulin GLARGINE(*) 1 UNITS UNIT SUBCUT SCH (09:35)
[2019-03-13] MEDS ORDERED: Vancomycin(*) 750 MG in NS 0.9% 250 ML* 250 ML IVPB SCH (10:30)
[2019-03-13] MEDS: Furosemide TAB* 20 MG PO SCH (13:31)
[2019-03-13 15:07] LABS: ABS Eosinophils 0.1 10^3/ul (0-0.6); ABS Monocytes 0.4 10^3/ul (0-0.8); ABS Neutrophils 2.9 10^3/ul (1.5-7.7); Eosinophil % 3.2 %; Hematocrit 31 % (35-47); Hemoglobin 9.9 g/dL (12.0-16.0); Lymphocyte % 22.8 %; Mean Corpuscular HGB Conc 32 g/dL (31-36); Mean Corpuscular Hemoglobin 25 pg (27-31); Mean Corpuscular Volume 80 fL (80-97); Mean Platelet Volume 9.4 fL (7.4-10.4); Platelet Count 154 10^3/uL (150-450); Red Cell Distribution Width 16 % (10-15); White Blood Count 4.5 10^3/uL (3.5-10.8)
[2019-03-13] MEDS: ceFAZolin 1 GM ADVAN(*) 1 GM in NS 0.9% 50 ML* 50 ML IVPB SCH ×2 (15:07→17:36)
[2019-03-13 15:24] LABS: BUN/Creatinine Ratio 28.2 (8-20); Calcium 8.6 mg/dL (8.6-10.3); EGFR African American 76.4 (>60); EGFR Non-African American 63.1 (>60); Potassium 4.2 mmol/L (3.5-5.0)
[2019-03-13] MEDS ORDERED: Morphine 4 MG/ML VIAL (1 ml) 4 MG/ML VIAL ONE (16:04)
[2019-03-13] MEDS ORDERED: Morphine 4 MG/ML VIAL (1 ml) 4 MG/ML VIAL IV ONE (16:05)
--- NOTE | 2019-03-13 17:15 | BRIEFOPN ---
Brief Operative Note - Surgery Procedures: Procedures OPERATIVE REPORT PRE-OP: Sepsis, lower extremity cellulitis POST-OP:Same PROCEDURE:Insertion of right femoral vein triple lumen catheter SURGEON: MD Vivien ANESTHESIA:Local 1%lidocaine ASST:none IVF:none EBL:min SPECIMEN:none DRAIN: none WOUND CLASS:One COMPLICATIONS: none
--- NOTE | 2019-03-13 19:08 | PN ---
Subjective Date of Service: 03/13/19 Interval History: Patient seen and examined. Per RN, patient has no IV access and is very difficult to obtain labs. Several RNs have tried with US and have been unable to get access. The patient is not overtly toxic appearing, but has periods of confusion. Does not complain of fevers or chills, no SOB, does have leg and heel pain which can be severe without correct positioning with pillows. [facility] transported [facility] this afternoon for femoral line placement with Dr. Puga. Consent obtained from patient's son Anibal. Please see procedure note from Dr. Puga today. Patient tolerated procedure and was transported back to [facility]. Orders for biswas as patient is incontinent and nursing staff is trying to keep femoral insertion site clean. Objective Active Medications: Acetaminophen (Tylenol Tab*) 650 mg PO Q4H PRN PRN Reason: FEVER/PAIN Acetaminophen (Tylenol Tab*) 650 mg PO Q6H PRN PRN Reason: PAIN - MILD TO MODERATE Aspirin (Aspirin Tab*) 325 mg PO QAM [facility] Last Admin: 03/13/19 09:27 Dose: 325 mg Atorvastatin Calcium (Lipitor*) 10 mg PO BEDTIME [facility] Last Admin: 03/12/19 22:11 Dose: 10 mg Cholecalciferol (Vitamin D Tab*) 800 unit PO DAILY [facility] Last Admin: 03/13/19 09:27 Dose: 800 unit Clopidogrel Bisulfate (Plavix Tab*) 75 mg PO QAM [facility] Last Admin: 03/13/19 09:27 Dose: 75 mg Dextrose (Dextrose 50% Vial 50 Ml*) 25 ml IV PUSH .FOR FS < 60 - SS PRN PRN Reason: FS < 60 Docusate Sodium (Colace Cap*) 100 mg PO BID [facility] Last Admin: 03/13/19 09:27 Dose: 100 mg Famotidine (Pepcid Tab*) 20 mg PO QAM [facility] Last Admin: 03/13/19 09:27 Dose: 20 mg Furosemide (Lasix Tab*) 20 mg PO 1200 [facility] Last Admin: 03/13/19 13:31 Dose: 20 mg Furosemide (Lasix Tab*) 40 mg PO QAM [facility] Last Admin: 03/13/19 09:27 Dose: 40 mg Gabapentin (Neurontin Cap(*)) 300 mg PO TID [facility] Last Admin: 03/13/19 13:31 Dose: 300 mg Heparin Sodium (Porcine) (Heparin Vial(*)) 5,000 units SUBCUT Q8HR [facility] Last Admin: 03/13/19 13:31 Dose: 5,000 units Cefazolin Sodium 1 gm/ Sodium (Chloride) 50 mls @ 200 mls/hr IVPB Q8H [facility] Last Admin: 03/13/19 17:36 Dose: 200 mls/hr Insulin Glargine (Lantus(*)) 8 units SUBCUT DAILY [facility] Last Admin: 03/13/19 09:35 Dose: 8 units Insulin Human Lispro (Humalog*) 0 units SUBCUT ACHS [facility]; Protocol Last Admin: 03/13/19 17:36 Dose: 3 units Levothyroxine Sodium (Synthroid Tab*) 25 mcg PO 0600 [facility] Last Admin: 03/13/19 05:21 Dose: 25 mcg Metoprolol Succinate (Toprol Xl Tab*) 25 mg PO DAILY [facility] Last Admin: 03/13/19 09:27 Dose: 25 mg Polyethylene Glycol/Electrolytes (Miralax*) 17 gm PO DAILY [facility] Last Admin: 03/13/19 09:27 Dose: 17 gm Spironolactone (Aldactone Tab*) 25 mg PO QAM [facility] Last Admin: 03/13/19 09:27 Dose: 25 mg Vital Signs - 8 hr 03/13/19 03/13/19 03/13/19 11:15 12:34 13:31 Temperature 97.4 F Pulse Rate 75 Respiratory 20 18 18 Rate Blood Pressure 126/40 (mmHg) O2 Sat by Pulse 100 Oximetry 03/13/19 03/13/19 03/13/19 15:15 15:55 16:01 Temperature 97.8 F Pulse Rate 76 75 Respiratory 18 4 16 Rate Blood Pressure 139/51 (mmHg) O2 Sat by Pulse 91 Oximetry 03/13/19 03/13/19 03/13/19 16:25 17:41 18:37 Temperature 97.0 F Pulse Rate 75 Respiratory 21 18 18 Rate Blood Pressure 128/33 (mmHg) O2 Sat by Pulse 96 Oximetry Oxygen Devices in Use Now: None Appearance: alert, NAD Eyes: PERRLA Ears/Nose/Mouth/Throat: Mucous Membranes Moist Neck: NL Appearance and Movements; NL JVP, Trachea Midline Respiratory: Symmetrical Chest Expansion and Respiratory Effort, Clear to Auscultation Cardiovascular: NL Sounds; No Murmurs; No JVD - irregular Abdominal: NL Sounds; No Tenderness; No Distention Extremities: - - bilateral lymphedema/poor skin quality with open areas posteriorly on lower calves Skin: - - bilateral LE wounds Neurological: - - A&Ox2 Nutrition: Taking PO's Result Diagrams: 03/13/19 14:40 03/13/19 14:40 Microbiology and Other Data: Microbiology 03/12/19 14:55 Aerobic Blood Culture - Preliminary Blood Venous No Growth Day 1 Anaerobic Blood Culture - Preliminary No Growth Day 1 03/12/19 14:55 Aerobic Blood Culture - Preliminary Blood Venous No Growth Day 1 Anaerobic Blood Culture - Preliminary No Growth Day 1 03/13/19 00:00 Skin and Soft Tissue MRSA/MSSA (PCR - Final Leg Right Mrsa Negative S.aureus Positive Gram Stain - Final Diagnostic Imaging: Patient Name: SHORTY FERNANDEZ Medical Record#: [id number] Ordering Physician: Judson Rey MD Acct.#: [id number] : 1930 Age: 88 Sex: F Location: EMERGENCY DEPARTMENT Exam Date: 03/12/191323 ADM Status: REG ER Order Information: CHEST AP OR PORT Accession Number: [id number] CPT: 13469 INDICATION: Sepsis. COMPARISON: Comparison is made with a prior study from November 28, 2018. TECHNIQUE: A portable view of the chest was obtained. FINDINGS: The heart is moderately enlarged and unchanged. The lungs are underinflated with more focal elevation of the right hemidiaphragm. There is a patchy infiltrate which projects over the right midlung. No pleural effusion is seen. IMPRESSION: LOW LUNG VOLUMES, SMALL RIGHT LUNG INFILTRATE. Assess/Plan/Problems-Billing Assessment: This is an 88 year old female with history of CAD, CHF, Afib, HTN, HLD, DM, GERD , Chronic lymphedema with leg wounds that presents from home with cellulitis of the lower extremities and maggots in her wounds. - Patient Problems (1) Infestation by maggots Code(s): B87.9 - MYIASIS, UNSPECIFIED SNOMED Code(s): 34646771 Comment: - With cellulitis of the bilateral LE and wounds - Cultures with staph - Will narrow atbx and change to cefazolin Q8h (2) Cellulitis Code(s): L03.90 - CELLULITIS, UNSPECIFIED SNOMED Code(s): 218285243 Comment: - See above (3) Atrial fibrillation Code(s): I48.91 - UNSPECIFIED ATRIAL FIBRILLATION SNOMED Code(s): 09574784 Comment: - Rate controlled, not on AC, continue metoprolol (4) Diabetes mellitus type 2 Code(s): E11.9 - TYPE 2 DIABETES MELLITUS WITHOUT COMPLICATIONS SNOMED Code(s) : 79679962 Comment: - On lantus with lispro SS, accuchecks ACHS (5) CAD (coronary artery disease) Code(s): I25.10 - ATHSCL HEART DISEASE OF [place] CORONARY ARTERY W/O ANG PCTRS SNOMED Code(s): 08663600 Comment: - Continue aspirin, atorvastatin, Plavix (6) Chronic systolic congestive heart failure Code(s): I50.22 - CHRONIC SYSTOLIC (CONGESTIVE) HEART FAILURE SNOMED Code(s): 405825147 Comment: - Continue metoprolol, furosemide, spironolactone and aspirin - Not in exacerbation (7) Hypertension Code(s): I10 - ESSENTIAL (PRIMARY) HYPERTENSION SNOMED Code(s): 51885953 Comment: - Stable on home meds (8) Hypothyroidism Code(s): E03.9 - HYPOTHYROIDISM, UNSPECIFIED SNOMED Code(s): 53636007 Comment: - Continue levothyroxine (9) Peripheral neuropathy Code(s): G62.9 - POLYNEUROPATHY, UNSPECIFIED SNOMED Code(s): 371193789 Comment: - Continue gabapentin with tramadol for breakthrough pain Status and Disposition: Inpatient, dispo TBD. Recommend SW consult.
[2019-03-13] MEDS ORDERED: traMADol TAB* 50 MG PO PRN (19:20)
[2019-03-13 20:22] LABS: Urine Appearance Cloudy; Urine Bacteria 1+ (Absent); Urine Bilirubin Negative (Negative); Urine Blood 2+ (Negative); Urine Color Yellow; Urine Glucose Negative (Negative); Urine Ketones Negative (Negative); Urine Nitrite Negative (Negative); Urine Protein Negative (Negative); Urine Red Blood Cell 3+(>10/hpf) (Absent); Urine Squamous Epithelial Cell Present (Absent); Urine Urobilinogen Negative (Negative); Urine White Blood Cell 3+(>20/hpf) (Absent)
[2019-03-13] MEDS: Atorvastatin* 10 MG TAB PO SCH (22:43)
--- NOTE | 2019-03-14 03:43 | OP ---
CC: [facility] OPERATIVE REPORT: DATE OF OPERATION: 03/13/19 DATE OF : [birth year] SURGEON: Francesco Puga MD ANESTHESIA: 1% lidocaine plain. PRE-OP DIAGNOSIS: Lower extremity ulcer with sepsis. POST-OP DIAGNOSIS: Lower extremity ulcer with sepsis. OPERATIVE PROCEDURE: Insertion of a right femoral vein triple-lumen catheter. ESTIMATED BLOOD LOSS: Minimal. WOULD CLASSIFICATION: I. COMPLICATIONS: None. DRAINS: None. FINDINGS: Ms. Eloise Tavera is an 88-year-old woman with multiple medical issues, who was admitted w ith sepsis and left lower extremity cellulitis in a chronic wound. Medical service has been unable t o obtain peripheral IV access and central line access was requested. Consent was obtained from the patient's son after discussion. She is on Plavix and has altered menta l status and is not cooperative and consent was not able to be obtained from the patient. In [facility], she has a contracture of the right neck and after evaluating her including the fact that she is on Plavix as an anticoagulant, the decision was made to proceed with insertion of a right femoral vein triple-lumen catheter. DESCRIPTION OF PROCEDURE: Written consent was obtained, the right groin was marked with indelible in k and she was placed in the supine position. The area was prepped and draped in the usual sterile fa shion using the supplies in a central line kit. Time-out verification was completed. There was a strong palpable right femoral pulse and 1% lidocaine was infiltrated in the right groin f ew inches medial and an 18-gauge Cook needle was used to puncture the femoral vein without difficulty . There was good blood return. The guidewire was inserted without difficulty. The skin was opened with an 11 blade knife and the guidewire tract was dilated with the dilator. The triple-lumen catheter was inserted over the guidewire using the Seldinger technique the guidewire was removed. There was good blood return from all 3 ports and they were flushed with saline. Steri le caps were placed. The line was sutured to the skin with 3 separate 3-0 silk sutures. Sterile Teg aderm dressings were applied. The patient tolerated the procedure well. [id number]/[facility] #: [id number]
[2019-03-14] MEDS: ceFAZolin 1 GM ADVAN(*) 1 GM in NS 0.9% 50 ML* 50 ML IVPB SCH ×3 (04:34→18:04)
[2019-03-14] MEDS: Levothyroxine TAB* 25 MCG TAB PO SCH (05:00)
[2019-03-14] MEDS: Heparin VIAL(*) 5000 UNITS/ML VIAL (FIVE THOUSAND) SUBCUT SCH ×3 (05:01→21:19)
[2019-03-14 05:11] LABS: Albumin 3.1 g/dL (3.2-5.2); Albumin/Globulin Ratio 1.1 (1-3); BUN/Creatinine Ratio 27.6 (8-20); Calcium 8.8 mg/dL (8.6-10.3); EGFR African American 74.4 (>60); EGFR Non-African American 61.4 (>60); Globulin 2.9 g/dL (2-4); Potassium 3.8 mmol/L (3.5-5.0); Total Bilirubin 0.3 mg/dL (0.2-1.0)
[2019-03-14 05:16] LABS: ABS Eosinophils 0.1 10^3/ul (0-0.6); ABS Lymphocytes 1.6 10^3/ul (1.0-4.8); ABS Monocytes 0.4 10^3/ul (0-0.8); ABS Neutrophils 2.4 10^3/ul (1.5-7.7); Eosinophil % 3.2 %; Hematocrit 28 % (35-47); Lymphocyte % 34.8 %; Mean Corpuscular HGB Conc 32 g/dL (31-36); Mean Corpuscular Hemoglobin 25 pg (27-31); Mean Corpuscular Volume 80 fL (80-97); Mean Platelet Volume 9.8 fL (7.4-10.4); Nucleated Red Blood Cells % 0.1; Platelet Count 151 10^3/uL (150-450); Red Blood Count 3.55 10^6 /uL (3.70-4.87); Red Cell Distribution Width 16 % (10-15); White Blood Count 4.6 10^3/uL (3.5-10.8)
[2019-03-14] MEDS ORDERED: Vancomycin Trough Check NOTE FOLLOW UP ONE (10:30)
[2019-03-14] MEDS: Insulin LISPRO* 1 UNITS UNIT SUBCUT SCH ×4 (10:32→21:22)
[2019-03-14] MEDS: Docusate CAP* 100 MG PO SCH ×2 (10:48→21:19)
[2019-03-14] MEDS: Clopidogrel TAB* 75 MG PO SCH (10:48)
[2019-03-14] MEDS: Aspirin TAB* 325 MG PO SCH (10:48)
[2019-03-14] MEDS: Famotidine TAB* 20 MG PO SCH (10:49)
[2019-03-14] MEDS: Cholecalciferol TAB* 400 UNIT PO SCH (10:49)
[2019-03-14] MEDS: Gabapentin CAP(*) 300 MG PO SCH ×3 (10:50→21:19)
[2019-03-14] MEDS: Polyethylene Glycol 3350* 17 GM PACKET PO SCH (10:52)
[2019-03-14] MEDS: Metoprolol Succinate XL TAB* 25 MG PO SCH (10:57)
[2019-03-14] MEDS ORDERED: NS 0.9% 500 ML* 500 ML IV ONE (10:58)
[2019-03-14] MEDS: Insulin GLARGINE(*) 1 UNITS UNIT SUBCUT SCH (10:59)
[2019-03-14] MEDS ORDERED: NS 0.9% 1000 ML** 1,000 ML IV SCH (11:00)
[2019-03-14 12:28] LABS: Urine Appearance Cloudy; Urine Bacteria Absent (Absent); Urine Bilirubin Negative (Negative); Urine Blood 3+ (Negative); Urine Color Yellow; Urine Glucose Negative (Negative); Urine Ketones Negative (Negative); Urine Nitrite Negative (Negative); Urine Protein Negative (Negative); Urine Red Blood Cell 3+(>10/hpf) (Absent); Urine Specific Gravity 1.012 (1.010-1.030); Urine Squamous Epithelial Cell Present (Absent); Urine Urobilinogen Negative (Negative); Urine White Blood Cell 3+(>20/hpf) (Absent)
[2019-03-14] MEDS: Furosemide TAB* 20 MG PO SCH (12:59)
--- NOTE | 2019-03-14 16:39 | PN ---
Subjective Date of Service: 03/14/19 Interval History: Patient seen and examined. Had hypoglycemia and hypotension overnight, but no fevers or tachycardia. D50 administered with NS bolus with good effect. Patient remains confused at times but appropriate. Complains of leg and right heel pain , no SOB, no fevers or chills and no chest pain. Objective Active Medications: Acetaminophen (Tylenol Tab*) 650 mg PO Q4H PRN PRN Reason: FEVER/PAIN Acetaminophen (Tylenol Tab*) 650 mg PO Q6H PRN PRN Reason: PAIN - MILD TO MODERATE Aspirin (Aspirin Tab*) 325 mg PO QAM [facility] Last Admin: 03/14/19 10:48 Dose: 325 mg Atorvastatin Calcium (Lipitor*) 10 mg PO BEDTIME [facility] Last Admin: 03/13/19 22:43 Dose: 10 mg Cholecalciferol (Vitamin D Tab*) 800 unit PO DAILY [facility] Last Admin: 03/14/19 10:49 Dose: 800 unit Clopidogrel Bis[facility]ate ([facility]ix Tab*) [facility] Last Admin: 03/14/19 10:48 Dose: 75 mg Dextrose (Dextrose 50% Vial 50 Ml*) 25 ml IV PUSH .FOR FS < 60 - SS PRN PRN Reason: FS < 60 Last Admin: 03/14/19 08:14 Dose: 25 ml Docusate Sodium (Colace Cap*) 100 mg PO BID [facility] Last Admin: 03/14/19 10:48 Dose: 100 mg Famotidine (Pepcid Tab*) 20 mg PO QAM [facility] Last Admin: 03/14/19 10:49 Dose: 20 mg Furosemide (Lasix Tab*) 20 mg PO 1200 [facility] Last Admin: 03/14/19 12:59 Dose: Not Given Gabapentin (Neurontin Cap(*)) 300 mg PO TID [facility] Last Admin: 03/14/19 13:17 Dose: 300 mg Heparin Sodium (Porcine) (Heparin Vial(*)) 5,000 units SUBCUT Q8HR [facility] Last Admin: 03/14/19 13:17 Dose: 5,000 units Heparin Sodium (Porcine) (Heparin Flush Picc/Ml/Cvc(*)) 1 ml FLUSH 0600,1800 [facility]; Protocol Last Admin: 03/14/19 05:01 Dose: 3 ml Cefazolin Sodium 1 gm/ Sodium (Chloride) 50 mls @ 200 mls/hr IVPB Q8H [facility] Last Admin: 03/14/19 11:36 Dose: 200 mls/hr Sodium Chloride (Ns 0.9% 1000 Ml) 1,000 mls @ 75 mls/hr IV PER RATE [facility] Insulin Glargine (Lantus(*)) 8 units SUBCUT DAILY [facility] Last Admin: 03/14/19 10:59 Dose: Not Given Insulin Human Lispro (Humalog*) 0 units SUBCUT ACHS [facility]; Protocol Last Admin: 03/14/19 13:16 Dose: 6 units Levothyroxine Sodium (Synthroid Tab*) 25 mcg PO 0600 [facility] Last Admin: 03/14/19 05:00 Dose: 25 mcg Metoprolol Succinate (Toprol Xl Tab*) 25 mg PO DAILY [facility] Last Admin: 03/14/19 10:57 Dose: Not Given Polyethylene Glycol/Electrolytes (Miralax*) 17 gm PO DAILY [facility] Last Admin: 03/14/19 10:52 Dose: 17 gm Tramadol HCl (Ultram*) 50 mg PO Q6H PRN PRN Reason: pain moderate Vital Signs - 8 hr 03/14/19 03/14/19 03/14/19 11:15 13:17 15:10 Temperature 98.6 F 97.2 F Pulse Rate 86 92 Respiratory 18 18 18 Rate Blood Pressure 140/68 138/36 (mmHg) O2 Sat by Pulse 100 99 Oximetry Oxygen Devices in Use Now: None Appearance: alert, NAD Eyes: No Scleral Icterus, PERRLA Ears/Nose/Mouth/Throat: Mucous Membranes Moist Neck: NL Appearance and Movements; NL JVP, Trachea Midline Respiratory: Symmetrical Chest Expansion and Respiratory Effort, Clear to Auscultation, - - diminished bases, no wheeze Cardiovascular: NL Sounds; No Murmurs; No JVD, RRR Abdominal: NL Sounds; No Tenderness; No Distention Extremities: - - bilateral LE lymphedema with open calf wounds, poor skin quality Neurological: - - alert per person and place Nutrition: Taking PO's Result Diagrams: 03/14/19 04:40 03/14/19 04:40 Microbiology and Other Data: Microbiology 03/12/19 14:55 Aerobic Blood Culture - Preliminary Blood Venous No Growth Day 1 Anaerobic Blood Culture - Preliminary No Growth Day 1 03/12/19 14:55 Aerobic Blood Culture - Preliminary Blood Venous No Growth Day 1 Anaerobic Blood Culture - Preliminary No Growth Day 1 03/13/19 00:00 Skin and Soft Tissue MRSA/MSSA (PCR - Final Leg Right Mrsa Negative S.aureus Positive Gram Stain - Final Diagnostic Imaging: Patient Name: SHORTY FERNANDEZ Medical Record#: [id number] Ordering Physician: Judson Rey MD Acct.#: [id number] : 1930 Age: 88 Sex: F Location: EMERGENCY DEPARTMENT Exam Date: 03/12/19 132 ADM Status: REG ER Order Information: CHEST AP OR PORT Accession Number: [id number] CPT: 05486 INDICATION: Sepsis. COMPARISON: Comparison is made with a prior study from November 28, 2018. TECHNIQUE: A portable view of the chest was obtained. FINDINGS: The heart is moderately enlarged and unchanged. The lungs are underinflated with more focal elevation of the right hemidiaphragm. There is a patchy infiltrate which projects over the right midlung. No pleural effusion is seen. IMPRESSION: LOW LUNG VOLUMES, SMALL RIGHT LUNG INFILTRATE. Assess/Plan/Problems-Billing Assessment: This is an 88 year old female with history of CAD, CHF, Afib, HTN, HLD, DM, GERD , Chronic lymphedema with leg wounds that presents from home with cellulitis of the lower extremities and maggots in her wounds. - Patient Problems (1) Infestation by maggots Code(s): B87.9 - MYIASIS, UNSPECIFIED SNOMED Code(s): 40315230 Comment: - With cellulitis of the bilateral LE and wounds - Cultures with staph - Continue cefazolin Q8h - Hypotensive this am, but not meeting sepsis criteria (no fever, no white count) will continue to monitor (2) Cellulitis Code(s): L03.90 - CELLULITIS, UNSPECIFIED SNOMED Code(s): 593600785 Comment: - See above (3) Atrial fibrillation Code(s): I48.91 - UNSPECIFIED ATRIAL FIBRILLATION SNOMED Code(s): 45846890 Comment: - Rate controlled, not on AC, continue metoprolol (4) Diabetes mellitus type 2 Code(s): E11.9 - TYPE 2 DIABETES MELLITUS WITHOUT COMPLICATIONS SNOMED Code(s) : 64763631 Comment: - On lantus with lispro SS, accuchecks ACHS - Lantus held 2/2 low sugar, continue SS PRN (5) CAD (coronary artery disease) Code(s): I25.10 - ATHSCL HEART DISEASE OF [place] CORONARY ARTERY W/O ANG PCTRS SNOMED Code(s): 32610682 Comment: - Continue aspirin, atorvastatin, Plavix (6) Chronic systolic congestive heart failure Code(s): I50.22 - CHRONIC SYSTOLIC (CONGESTIVE) HEART FAILURE SNOMED Code(s): 525379116 Comment: - Continue metoprolol, furosemide, spironolactone and aspirin - Not in exacerbation (7) Hypertension Code(s): I10 - ESSENTIAL (PRIMARY) HYPERTENSION SNOMED Code(s): 49203909 Comment: - Stable on home meds (8) Hypothyroidism Code(s): E03.9 - HYPOTHYROIDISM, UNSPECIFIED SNOMED Code(s): 00533035 Comment: - Continue levothyroxine (9) Peripheral neuropathy Code(s): G62.9 - POLYNEUROPATHY, UNSPECIFIED SNOMED Code(s): 228687783 Comment: - Continue gabapentin with tramadol for breakthrough pain Status and Disposition: Inpatient, dispo TBD. Recommend SW consult.
[2019-03-14] MEDS: Atorvastatin* 10 MG TAB PO SCH (21:19)
[2019-03-15] MEDS: ceFAZolin 1 GM ADVAN(*) 1 GM in NS 0.9% 50 ML* 50 ML IVPB SCH ×3 (03:59→17:38)
[2019-03-15] MEDS: Levothyroxine TAB* 25 MCG TAB PO SCH (04:36)
[2019-03-15] MEDS: Heparin VIAL(*) 5000 UNITS/ML VIAL (FIVE THOUSAND) SUBCUT SCH ×3 (04:38→21:41)
[2019-03-15 05:11] LABS: ABS Eosinophils 0.2 10^3/ul (0-0.6); ABS Monocytes 0.4 10^3/ul (0-0.8); ABS Neutrophils 2.2 10^3/ul (1.5-7.7); Eosinophil % 4.2 %; Hematocrit 30 % (35-47); Hemoglobin 9.4 g/dL (12.0-16.0); Lymphocyte % 41.5 %; Mean Corpuscular HGB Conc 31 g/dL (31-36); Mean Corpuscular Hemoglobin 25 pg (27-31); Mean Corpuscular Volume 80 fL (80-97); Mean Platelet Volume 9.8 fL (7.4-10.4); Nucleated Red Blood Cells % 0.1; Platelet Count 166 10^3/uL (150-450); Red Blood Count 3.77 10^6 /uL (3.70-4.87); Red Cell Distribution Width 16 % (10-15); White Blood Count 4.8 10^3/uL (3.5-10.8)
[2019-03-15 05:35] LABS: Albumin 3.2 g/dL (3.2-5.2); Albumin/Globulin Ratio 1.1 (1-3); BUN/Creatinine Ratio 22.2 (8-20); Calcium 8.8 mg/dL (8.6-10.3); EGFR African American 71.5 (>60); EGFR Non-African American 59.1 (>60); Potassium 3.8 mmol/L (3.5-5.0); Total Bilirubin 0.3 mg/dL (0.2-1.0); Total Protein 6.2 g/dL (6.4-8.9)
[2019-03-15] MEDS ORDERED: Dextrose 50% VIAL 50 ml ONE (07:24)
[2019-03-15] MEDS: Insulin LISPRO* 1 UNITS UNIT SUBCUT SCH ×4 (08:06→21:29)
[2019-03-15] MEDS: Insulin GLARGINE(*) 1 UNITS UNIT SUBCUT SCH (08:07)
[2019-03-15] MEDS: Docusate CAP* 100 MG PO SCH ×2 (08:14→21:40)
[2019-03-15] MEDS: Famotidine TAB* 20 MG PO SCH (08:14)
[2019-03-15] MEDS: Gabapentin CAP(*) 300 MG PO SCH ×3 (08:14→21:33)
[2019-03-15] MEDS: Aspirin TAB* 325 MG PO SCH (08:14)
[2019-03-15] MEDS: Cholecalciferol TAB* 400 UNIT PO SCH (08:14)
[2019-03-15] MEDS: Clopidogrel TAB* 75 MG PO SCH (08:14)
[2019-03-15] MEDS: Polyethylene Glycol 3350* 17 GM PACKET PO SCH (08:15)
[2019-03-15] MEDS: Metoprolol Succinate XL TAB* 25 MG PO SCH (08:15)
--- NOTE | 2019-03-15 09:28 | PN ---
Subjective Date of Service: 03/15/19 Interval History: Denies any pain. Objective Active Medications: Acetaminophen (Tylenol Tab*) 650 mg PO Q4H PRN PRN Reason: FEVER/PAIN Acetaminophen (Tylenol Tab*) 650 mg PO Q6H PRN PRN Reason: PAIN - MILD TO MODERATE Aspirin (Aspirin Tab*) 325 mg PO QAM [facility] Last Admin: 03/15/19 08:14 Dose: 325 mg Atorvastatin Calcium (Lipitor*) 10 mg PO BEDTIME [facility] Last Admin: 03/14/19 21:19 Dose: 10 mg Cholecalciferol (Vitamin D Tab*) 800 unit PO DAILY [facility] Last Admin: 03/15/19 08:14 Dose: 800 unit Clopidogrel Bisulfate (Plavix Tab*) [facility] [place] Last Admin: 03/15/19 08:14 Dose: 75 mg Dextrose (Dextrose 50% Vial 50 Ml*) 25 ml IV PUSH .FOR FS < 60 - SS PRN PRN Reason: FS < 60 Last Admin: 03/14/19 08:14 Dose: 25 ml Docusate Sodium (Colace Cap*) 100 mg PO BID [facility] Last Admin: 03/15/19 08:14 Dose: 100 mg Famotidine (Pepcid Tab*) 20 mg PO QAM [facility] Last Admin: 03/15/19 08:14 Dose: 20 mg Furosemide (Lasix Tab*) 20 mg PO 1200 [facility] Last Admin: 03/14/19 12:59 Dose: Not Given Gabapentin (Neurontin Cap(*)) 300 mg PO TID [facility] Last Admin: 03/15/19 08:14 Dose: 300 mg Heparin Sodium (Porcine) (Heparin Vial(*)) 5,000 units SUBCUT Q8HR [facility] Last Admin: 03/15/19 04:38 Dose: 5,000 units Heparin Sodium (Porcine) (Heparin Flush Picc/Ml/Cvc(*)) 1 ml FLUSH 0600,1800 [facility]; Protocol Last Admin: 03/15/19 04:38 Dose: 3 ml Cefazolin Sodium 1 gm/ Sodium (Chloride) 50 mls @ 200 mls/hr IVPB Q8H [facility] Last Admin: 03/15/19 03:59 Dose: 200 mls/hr Sodium Chloride (Ns 0.9% 1000 Ml) 1,000 mls @ 75 mls/hr IV PER RATE [facility] Insulin Glargine (Lantus(*)) 8 units SUBCUT DAILY [facility] Last Admin: 03/15/19 08:07 Dose: Not Given Insulin Human Lispro (Humalog*) 0 units SUBCUT ACHS [facility]; Protocol Last Admin: 03/15/19 08:06 Dose: Not Given Levothyroxine Sodium (Synthroid Tab*) 25 mcg PO 0600 [facility] Last Admin: 03/15/19 04:36 Dose: 25 mcg Metoprolol Succinate (Toprol Xl Tab*) 25 mg PO DAILY [facility] Last Admin: 03/15/19 08:15 Dose: Not Given Polyethylene Glycol/Electrolytes (Miralax*) 17 gm PO DAILY [facility] Last Admin: 03/15/19 08:15 Dose: 17 gm Tramadol HCl (Ultram*) 50 mg PO Q6H PRN PRN Reason: pain moderate Vital Signs - 8 hr 03/15/19 03/15/19 03/15/19 03:45 07:15 08:14 Temperature 96.9 F Pulse Rate 76 76 Respiratory 16 18 18 Rate Blood Pressure 135/61 80/39 (mmHg) O2 Sat by Pulse 100 100 Oximetry Oxygen Devices in Use Now: None Eyes: No Scleral Icterus, PERRLA Respiratory: Clear to Auscultation Cardiovascular: NL Sounds; No Murmurs; No JVD, RRR Abdominal: NL Sounds; No Tenderness; No Distention, No Hepatosplenomegaly Extremities: - - Bilateral lowe extremity edema. Result Diagrams: 03/15/19 04:45 03/15/19 04:45 Microbiology and Other Data: Microbiology 03/12/19 14:55 Aerobic Blood Culture - Preliminary Blood Venous No Growth Day 1 Anaerobic Blood Culture - Preliminary No Growth Day 1 03/12/19 14:55 Aerobic Blood Culture - Preliminary Blood Venous No Growth Day 1 Anaerobic Blood Culture - Preliminary No Growth Day 1 03/13/19 00:00 Skin and Soft Tissue MRSA/MSSA (PCR - Final Leg Right Mrsa Negative S.aureus Positive Gram Stain - Final Diagnostic Imaging: Patient Name: SHORTY FERNANDEZ Medical Record#: [id number] Ordering Physician: Judson Rey MD Acct.#: [id number] : 1930 Age: 88 Sex: F Location: EMERGENCY DEPARTMENT Exam Date: 03/12/191323 ADM Status: REG ER Order Information: CHEST AP OR PORT Accession Number: [id number] CPT: 71865 INDICATION: Sepsis. COMPARISON: Comparison is made with a prior study from November 28, 2018. TECHNIQUE: A portable view of the chest was obtained. FINDINGS: The heart is moderately enlarged and unchanged. The lungs are underinflated with more focal elevation of the right hemidiaphragm. There is a patchy infiltrate which projects over the right midlung. No pleural effusion is seen. IMPRESSION: LOW LUNG VOLUMES, SMALL RIGHT LUNG INFILTRATE. Assess/Plan/Problems-Billing Assessment: This is an 88 year old female with history of CAD, CHF, Afib, HTN, HLD, DM, GERD , Chronic lymphedema with leg wounds that presents from home with cellulitis of the lower extremities and maggots in her wounds. - Patient Problems (1) Infestation by maggots Current Visit: Yes Status: Acute Code(s): B87.9 - MYIASIS, UNSPECIFIED SNOMED Code(s): 29949840 Comment: - With cellulitis of the bilateral LE and wounds - Cultures with staph - Continue cefazolin Q8h - Hypotensive this am, but not meeting sepsis criteria (no fever, no white count) will continue to monitor - Unable to get the PICC line so still has Femoral line. (2) Cellulitis Current Visit: Yes Status: Acute Code(s): L03.90 - CELLULITIS, UNSPECIFIED SNOMED Code(s): 572599111 Comment: - See above (3) Atrial fibrillation Current Visit: No Status: Active Code(s): I48.91 - UNSPECIFIED ATRIAL FIBRILLATION SNOMED Code(s): 79371267 Comment: - Rate controlled, not on AC, continue metoprolol (4) Diabetes mellitus type 2 Current Visit: No Status: Active Code(s): E11.9 - TYPE 2 DIABETES MELLITUS WITHOUT COMPLICATIONS SNOMED Code(s): 42806861 Comment: - On lispro SS, accuchecks ACHS - Lantus discontinued 2/2 low sugar (5) CAD (coronary artery disease) Current Visit: No Status: Acute Code(s): I25.10 - ATHSCL HEART DISEASE OF [place] CORONARY ARTERY W/O ANG PCTRS SNOMED Code(s): 91678051 Comment: - Continue aspirin, atorvastatin, Plavix (6) Chronic systolic congestive heart failure Current Visit: No Status: Acute Code(s): I50.22 - CHRONIC SYSTOLIC ( CONGESTIVE) HEART FAILURE SNOMED Code(s): 438087450 Comment: - Continue metoprolol, furosemide, spironolactone and aspirin - Not in exacerbation (7) Hypertension Current Visit: No Status: Acute Code(s): I10 - ESSENTIAL (PRIMARY) HYPERTENSION SNOMED Code(s): 90225149 Comment: - Stable on home meds (8) Hypothyroidism Current Visit: No Status: Acute Code(s): E03.9 - HYPOTHYROIDISM, UNSPECIFIED SNOMED Code(s): 74634727 Comment: - Continue levothyroxine (9) Peripheral neuropathy Current Visit: No Status: Acute Code(s): G62.9 - POLYNEUROPATHY, UNSPECIFIED SNOMED Code(s): 699771586 Comment: - Continue gabapentin with tramadol for breakthrough pain Status and Disposition: Inpatient, dispo TBD. Recommend SW consult.
[2019-03-15] MEDS: Furosemide TAB* 20 MG PO SCH (12:35)
[2019-03-15] MEDS: Atorvastatin* 10 MG TAB PO SCH (21:40)
[2019-03-16] MEDS: ceFAZolin 1 GM ADVAN(*) 1 GM in NS 0.9% 50 ML* 50 ML IVPB SCH ×2 (02:57→12:23)
[2019-03-16] MEDS: Levothyroxine TAB* 25 MCG TAB PO SCH (05:57)
[2019-03-16] MEDS: Heparin VIAL(*) 5000 UNITS/ML VIAL (FIVE THOUSAND) SUBCUT SCH ×3 (05:57→22:00)
[2019-03-16 09:15] LABS: ABS Eosinophils 0.2 10^3/ul (0-0.6); ABS Lymphocytes 1.3 10^3/ul (1.0-4.8); ABS Monocytes 0.5 10^3/ul (0-0.8); Eosinophil % 3.8 %; Hematocrit 32 % (35-47); Hemoglobin 10.2 g/dL (12.0-16.0); Lymphocyte % 25.9 %; Mean Corpuscular HGB Conc 32 g/dL (31-36); Mean Corpuscular Hemoglobin 25 pg (27-31); Mean Corpuscular Volume 80 fL (80-97); Mean Platelet Volume 9.7 fL (7.4-10.4); Nucleated Red Blood Cells % 0.1; Platelet Count 176 10^3/uL (150-450); Red Blood Count 4.05 10^6 /uL (3.70-4.87); Red Cell Distribution Width 16 % (10-15); White Blood Count 4.9 10^3/uL (3.5-10.8)
[2019-03-16] MEDS: Insulin LISPRO* 1 UNITS UNIT SUBCUT SCH ×4 (09:30→22:00)
[2019-03-16] MEDS: Polyethylene Glycol 3350* 17 GM PACKET PO SCH (09:32)
[2019-03-16] MEDS: Metoprolol Succinate XL TAB* 25 MG PO SCH (09:32)
[2019-03-16] MEDS: Cholecalciferol TAB* 400 UNIT PO SCH (09:32)
[2019-03-16] MEDS: Aspirin TAB* 325 MG PO SCH (09:32)
[2019-03-16] MEDS: Gabapentin CAP(*) 300 MG PO SCH ×3 (09:32→22:00)
[2019-03-16] MEDS: Famotidine TAB* 20 MG PO SCH (09:32)
[2019-03-16] MEDS: Clopidogrel TAB* 75 MG PO SCH (09:32)
[2019-03-16] MEDS: Docusate CAP* 100 MG PO SCH ×2 (09:33→21:59)
[2019-03-16] MEDS: Furosemide TAB* 20 MG PO SCH (12:25)
--- NOTE | 2019-03-16 17:06 | CONSULT ---
Subjective Date of Service: 03/16/19 Interval History: Ms. Tavera is an 87 yo female with PMH significant for CAD, CHF, A fib, HTN, HLD , DM with bilateral LE peripheral neuropathy, hypothyroidism, GERD, and chronic constipation who presented to the emergency room for bilateral LE wounds and cellulitis. She was found to have maggots in her LE wounds. Ms. Tavera states that she has had bilateral LE edema for a long time and tries to keep her legs elevated. She doesn't apply any dressings to the wounds at home , but does use Vaseline on the legs. Patient seen and examined at bedside. Family History: Unchanged from Admission Social History: Unchanged from Admission Past Medical History: Unchanged from Admission Review of Systems - Measurements Intake and Output: Intake and Output Last 24 Hours 03/14/19 03/15/19 03/16/19 03/17/19 06:59 06:59 06:59 06:59 Intake Total 895 1490 1980 950 Output Total 1250 1650 3500 400 Balance -355 -160 -1520 550 Weight 207 lb 7 oz 210 lb 1.6 oz Intake: IV Fluids 20 NS (0.9%) 20 IVPB 55 55 ABX - CEFAZOLIN 55 Oral 840 1415 1980 950 Output: Urine 975 900 Sandoval 750 3500 400 Residual 275 Sandoval 18 Fr 275 Other: Estimated Void Large Small Date of Last Bowel unknown Movement # Bowel Movements 0 0 3 Estimated Stool Amount Large Medium # Voids 4 2 - Review of Systems Constitutional Symptoms: Negative: Fever, Other - Chills Dermatology: Positive: Other - Chronic LE wounds Cardiology: Positive: Edema - bilateral LEs Endocrinology: Positive: Diabetes Mellitus Objective Active Medications: Acetaminophen (Tylenol Tab*) 650 mg PO Q4H PRN Reason: FEVER/PAIN Acetaminophen (Tylenol Tab*) 650 mg PO Q6H PRN Reason: PAIN - MILD TO MODERATE Aspirin (Aspirin Tab*) 325 mg PO QAM [facility] Atorvastatin Calcium (Lipitor*) 10 mg PO BEDTIME [facility] Cholecalciferol (Vitamin D Tab*) 800 unit PO DAILY [facility] Clopidogrel Bisulfate (Plavix Tab*) 75 mg PO QAM [facility] Dextrose (Dextrose 50% Vial 50 Ml*) 25 ml IV PUSH .FOR FS < 60 - SS PRN Reason : FS < 60 Docusate Sodium (Colace Cap*) 100 mg PO BID [facility] Famotidine (Pepcid Tab*) 20 mg PO QAM [facility] Furosemide (Lasix Tab*) 20 mg PO 1200 [facility] Gabapentin (Neurontin Cap(*)) 300 mg PO TID [facility] Heparin Sodium (Porcine) (Heparin Vial(*)) 5,000 units SUBCUT Q8HR [facility] Heparin Sodium (Porcine) (Heparin Flush Picc/Ml/Cvc(*)) 1 ml FLUSH 0600,1800 [facility]; Protocol Cefazolin Sodium 1 gm/ Sodium (Chloride) 50 mls @ 200 mls/hr IVPB Q8H [facility] Sodium Chloride (Ns 0.9% 1000 Ml) 1,000 mls @ 75 mls/hr IV PER RATE [facility] Insulin Human Lispro (Humalog*) 0 units SUBCUT ACHS [facility]; Protocol Levothyroxine Sodium (Synthroid Tab*) 25 mcg PO 0600 [facility] Metoprolol Succinate (Toprol Xl Tab*) 25 mg PO DAILY [facility] Polyethylene Glycol/Electrolytes (Miralax*) 17 gm PO DAILY [facility] Tramadol HCl (Ultram*) 50 mg PO Q6H PRN Reason: pain moderate Vital Signs 03/16/19 03/16/19 03/16/19 09:32 11:15 12:23 Temperature 97.3 F Pulse Rate 72 Respiratory 18 24 18 Rate Blood Pressure 103/70 (mmHg) O2 Sat by Pulse 100 Oximetry Oxygen Devices in Use Now: None Appearance: NAD, sitting up in bed Ears/Nose/Mouth/Throat: Mucous Membranes Moist Respiratory: Symmetrical Chest Expansion and Respiratory Effort Extremities: - - Bilateral LE lymphedema Skin: - - See skin note below Neurological: Alert and Oriented x 3 Nutrition: Taking PO's Result Diagrams: 03/16/19 08:46 03/15/19 04:45 Diagnostic Imaging: Exam Date: 11/30/18 1037 - VL ANK/BRACHIAL INDICES REPORT: Markedly limited exam due to the dermal thickening and irregularity limiting acoustic window. Neither the RIGHT or LEFT ankle brachial index could be calculated. Minimal monophasic flow detected at the RIGHT dorsalis pedis artery. Minimal monophasic flow detected at the bilateral great toes. Bilateral ankle pulse volume recordings demonstrate absence of significant reflected waves. IMPRESSION: #. Limited exam due to compromised acoustic window with evidence for peripheral vascular disease which may reflect inflow disease or intrinsic lower extremity stenoses. Skin Deviation Note - Skin Deviation Findings Right medial lower leg - There is a superficial wound, measures 6 cm x 3.5 cm x 0.4 cm. The wound base is red granulation tissue. There is no drainage. The surrounding tissue with chronic skin changes but to chronic lymphedema. Left anterior lower leg - Chronic skin changes due to chronic lymphedema. Left lateral lower leg - There is a small superficial wound, measures 0.8 cm x 1 cm x 0.1 cm. The surrounding skin is macerated. There is no drainage noted. The rest of the leg with chronic skin changes due to lymphedema. Assessment/Plan: Ms. Tavera is an 87 yo female with PMH significant for CAD, CHF, A fib, HTN, HLD , DM with bilateral LE peripheral neuropathy, hypothyroidism, GERD, and chronic constipation who presented to the emergency room for bilateral LE wounds and concern for cellulitis. She presented to the hospital with open areas to bilateral LEs. 1. Bilateral LEs with open wounds. The wounds were cultured and show multiple organisms, she is receiving ceftriaxone. ABIs completed in October of this year - "Limited exam due to compromised acoustic window with evidence for peripheral vascular disease which may reflect inflow disease or intrinsic lower extremity stenoses". Suspect this is secondary to venous stasis, she also has lymphedema to bilateral LEs. Wash legs with soap and water daily. Recommend using calcium alginate on the open areas, followed by dry dressing, change once daily. Encourage patient to keep legs elevated. Apply lotion (Eucerin while here as that is the only kind on formulary, but could try a lotion with Urea 40 or lac hydrin outpatient) to the legs daily. Consider referring to the wound clinic on discharge. She may also benefit from referral to vascular surgery to see if there is an intervention available to help with the blood flow to her legs. 2. Diabetes Mellitus. HgA1C was 8.4 on 11/02/18. Maintain good glycemic control to allow for wound healing. 3. Diet. Consistent carbohydrate diet 4. Code Status. Full code 5. Disposition. Inpatient. Disposition per primary medicine team TIME SPENT: Time for this wound consultation was 25 minutes and 15 minutes was spent with the patient discussing past medical history, assessing, measuring and photographing the wounds. Wound Problem/Plan Is Patient a Wound Clinic Patient: No Attending: Sienna Odom
--- NOTE | 2019-03-16 19:01 | PN ---
Subjective Date of Service: 03/16/19 Interval History: Patient is quite hard of hearing. She denies chest pain, dyspnea, lower extremity pain, fever/chills. She doesn't believe she follows with wound clinic. Family History: Unchanged from Admission Social History: Unchanged from Admission Past Medical History: Unchanged from Admission Objective Active Medications: Acetaminophen (Tylenol Tab*) 650 mg PO Q4H PRN PRN Reason: FEVER/PAIN Last Admin: 03/15/19 21:41 Dose: 650 mg Acetaminophen (Tylenol Tab*) 650 mg PO Q6H PRN PRN Reason: PAIN - MILD TO MODERATE Aspirin (Aspirin Tab*) 325 mg PO QAM [facility] Last Admin: 03/16/19 09:32 Dose: 325 mg Atorvastatin Calcium (Lipitor*) 10 mg PO BEDTIME [facility] Last Admin: 03/15/19 21:40 Dose: 10 mg Cholecalciferol (Vitamin D Tab*) 800 unit PO DAILY [facility] Last Admin: 03/16/19 09:32 Dose: 800 unit Clopidogrel [facility] ([facility]ix [facility]*) [facility] [place] Admin: 03/16/19 09:32 Dose: 75 mg Dextrose (Dextrose 50% Vial 50 Ml*) 25 ml IV PUSH .FOR FS < 60 - SS PRN PRN Reason: FS < 60 Last Admin: 03/14/19 08:14 Dose: 25 ml Docusate Sodium (Colace Cap*) 100 mg PO BID [facility] Last Admin: 03/16/19 09:33 Dose: 100 mg Famotidine (Pepcid Tab*) 20 mg PO QAM [facility] Last Admin: 03/16/19 09:32 Dose: 20 mg Furosemide (Lasix Tab*) 20 mg PO 1200 [facility] Last Admin: 03/16/19 12:25 Dose: 20 mg Gabapentin (Neurontin Cap(*)) 300 mg PO TID [facility] Last Admin: 03/16/19 12:23 Dose: 300 mg Heparin Sodium (Porcine) (Heparin Vial(*)) 5,000 units SUBCUT Q8HR [facility] Last Admin: 03/16/19 12:23 Dose: 5,000 units Heparin Sodium (Porcine) (Heparin Flush Picc/Ml/Cvc(*)) 1 ml FLUSH 0600,1800 [facility]; Protocol Last Admin: 03/16/19 17:06 Dose: Not Given Sodium Chloride (Ns 0.9% 1000 Ml) 1,000 mls @ 75 mls/hr IV PER RATE [facility] Insulin Human Lispro (Humalog*) 0 units SUBCUT ACHS [facility]; Protocol Last Admin: 03/16/19 17:05 Dose: 2 units Levothyroxine Sodium (Synthroid Tab*) 25 mcg PO 0600 [facility] Last Admin: 03/16/19 05:57 Dose: 25 mcg Metoprolol Succinate (Toprol Xl Tab*) 25 mg PO DAILY [facility] Last Admin: 03/16/19 09:32 Dose: 25 mg Polyethylene Glycol/Electrolytes (Miralax*) 17 gm PO DAILY [facility] Last Admin: 03/16/19 09:32 Dose: 17 gm Tramadol HCl (Ultram*) 50 mg PO Q6H PRN PRN Reason: pain moderate Trimethoprim/Sulfamethoxazole (Bactrim Ds 800/160 Tab*) 1 tab PO DAILY [facility] Vital Signs - 8 hr 03/16/19 03/16/19 03/16/19 11:15 12:23 12:25 Temperature 97.3 F Pulse Rate 72 Respiratory 24 18 18 Rate Blood Pressure 103/70 (mmHg) O2 Sat by Pulse 100 Oximetry 03/16/19 15:01 Temperature Pulse Rate Respiratory 18 Rate Blood Pressure (mmHg) O2 Sat by Pulse Oximetry Oxygen Devices in Use Now: None Appearance: Elderly black female laying in hospital bed appearing in NAD Eyes: No Scleral Icterus, PERRLA Ears/Nose/Mouth/Throat: Mucous Membranes Moist Neck: NL Appearance and Movements; NL JVP Respiratory: Symmetrical Chest Expansion and Respiratory Effort, Clear to Auscultation Cardiovascular: NL Sounds; No Murmurs; No JVD, RRR Abdominal: - - abd soft, nontender, nondistended Skin: - - bilateral lymphedema with keratotic changes to LEs; calf wounds bilaterally are without discharge; no purulence or surrounding erythema or tenderness Neurological: Alert and Oriented x 3, NL Muscle Strength and Tone Result Diagrams: 03/16/19 08:46 03/15/19 04:45 Microbiology and Other Data: Microbiology 03/12/19 14:55 Aerobic Blood Culture - Preliminary Blood Venous No Growth Day 1 Anaerobic Blood Culture - Preliminary No Growth Day 1 03/12/19 14:55 Aerobic Blood Culture - Preliminary Blood Venous No Growth Day 1 Anaerobic Blood Culture - Preliminary No Growth Day 1 03/13/19 00:00 Skin and Soft Tissue MRSA/MSSA (PCR - Final Leg Right Mrsa Negative S.aureus Positive Gram Stain - Final Diagnostic Imaging: Patient Name: SHORTY FERNANDEZ Medical Record#: [id number] Ordering Physician: Judson Rey MD Acct.#: [id number] : 1930 Age: 88 Sex: F Location: EMERGENCY DEPARTMENT Exam Date: 03/12/19 1324 ADM Status: REG ER Order Information: CHEST AP OR PORT Accession Number: [id number] CPT: 43611 INDICATION: Sepsis. COMPARISON: Comparison is made with a prior study from November 28, 2018. TECHNIQUE: A portable view of the chest was obtained. FINDINGS: The heart is moderately enlarged and unchanged. The lungs are underinflated with more focal elevation of the right hemidiaphragm. There is a patchy infiltrate which projects over the right midlung. No pleural effusion is seen. IMPRESSION: LOW LUNG VOLUMES, SMALL RIGHT LUNG INFILTRATE. Assess/Plan/Problems-Billing Assessment: This is an 88 year old female with history of CAD, CHF, Afib, HTN, HLD, DM, GERD , Chronic lymphedema with leg wounds that presents from home with maggots in her wounds. - Patient Problems (1) Infestation by maggots Current Visit: Yes Status: Acute Code(s): B87.9 - MYIASIS, UNSPECIFIED SNOMED Code(s): 66937693 Comment: - With cellulitis of the bilateral LE and wounds - Cultures with staph - Cefazolin resistance on S&S, discontinued - Ordered Bactrim po daily - PICC line placed, but will likely not need outside the hospital due to bactrim as choice for abx - Blood cultures no growth to date - Social Work involved - Needs follow up with wound clinic (2) Cellulitis Current Visit: Yes Status: Acute Code(s): L03.90 - CELLULITIS, UNSPECIFIED SNOMED Code(s): 348448737 Comment: - See above (3) Hypotension Current Visit: Yes Status: Acute Comment: -hypotensive yesterday and today -patient does not meet sepsis criteria -IVF ordered but were not being given for unclear reasons -will re-evaluate tomorrow, IVF now being administered -will not d/c metoprolol due to afib (4) Atrial fibrillation Current Visit: No Status: Active Code(s): I48.91 - UNSPECIFIED ATRIAL FIBRILLATION SNOMED Code(s): 80677199 Comment: - Rate controlled, not on AC, continue metoprolol (5) Diabetes mellitus type 2 Current Visit: No Status: Active Code(s): E11.9 - TYPE 2 DIABETES MELLITUS WITHOUT COMPLICATIONS SNOMED Code(s): 67181242 Comment: - On lispro SS, accuchecks ACHS - Lantus discontinued 2/2 low BG on 03/15 (6) Hearing loss Current Visit: No Status: Active Code(s): H91.90 - UNSPECIFIED HEARING LOSS , UNSPECIFIED EAR SNOMED Code(s): 01400502 Comment: -supportive care (7) CAD (coronary artery disease) Current Visit: No Status: Acute Code(s): I25.10 - ATHSCL HEART DISEASE OF [place] CORONARY ARTERY W/O ANG PCTRS SNOMED Code(s): 41521549 Comment: - Continue aspirin, atorvastatin, Plavix (8) Chronic systolic congestive heart failure Current Visit: No Status: Acute Code(s): I50.22 - CHRONIC SYSTOLIC ( CONGESTIVE) HEART FAILURE SNOMED Code(s): 692620130 Comment: - Continue metoprolol, furosemide - Not in exacerbation (9) Hypothyroidism Current Visit: No Status: Acute Code(s): E03.9 - HYPOTHYROIDISM, UNSPECIFIED SNOMED Code(s): 55975586 Comment: - Continue levothyroxine (10) Full code status Current Visit: No Status: Acute Code(s): Z78.9 - OTHER SPECIFIED HEALTH STATUS SNOMED Code(s): 552449237 Comment: (11) DVT prophylaxis Current Visit: No Status: Acute Code(s): CNA0061 - SNOMED Code(s): 459606281 Comment: - Heparin SQ Status and Disposition: Inpatient, likely will d/c tomorrow if has safe plan for home
[2019-03-16] MEDS ORDERED: Albuterol 2.5 MG/3 ML NEB.SOL* (0.083%) INH PRN (20:54)
[2019-03-16] MEDS: Sulfamethox/Trimethoprim DS 800/160* TAB PO SCH (21:59)
[2019-03-16] MEDS: Atorvastatin* 10 MG TAB PO SCH (21:59)
[2019-03-16] MEDS ORDERED: NS 0.9% 500 ML* 500 ML IV ONE (23:00)
[2019-03-16] MEDS ORDERED: Ondansetron INJ* 2 MG/ML VIAL IV PRN (23:47)
[2019-03-17] MEDS: Heparin VIAL(*) 5000 UNITS/ML VIAL (FIVE THOUSAND) SUBCUT SCH ×2 (05:18→13:20)
[2019-03-17] MEDS: Levothyroxine TAB* 25 MCG TAB PO SCH (05:25)
[2019-03-17] MEDS: Insulin LISPRO* 1 UNITS UNIT SUBCUT SCH ×2 (08:12→12:18)
[2019-03-17] MEDS: Polyethylene Glycol 3350* 17 GM PACKET PO SCH (09:53)
[2019-03-17] MEDS: Docusate CAP* 100 MG PO SCH (09:56)
[2019-03-17] MEDS: Gabapentin CAP(*) 300 MG PO SCH ×2 (09:56→13:20)
[2019-03-17] MEDS: Clopidogrel TAB* 75 MG PO SCH (09:57)
[2019-03-17] MEDS: Aspirin TAB* 325 MG PO SCH (09:57)
[2019-03-17] MEDS: Sulfamethox/Trimethoprim DS 800/160* TAB PO SCH (09:57)
[2019-03-17] MEDS: Cholecalciferol TAB* 400 UNIT PO SCH (09:57)
[2019-03-17] MEDS: Famotidine TAB* 20 MG PO SCH (09:57)
[2019-03-17] MEDS: Metoprolol Succinate XL TAB* 25 MG PO SCH (11:20)
[2019-03-17] MEDS: Furosemide TAB* 20 MG PO SCH (13:20)
[2019-03-17 17:23] VITALS: BP 92/60
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
== END 2019-03-17 17:05 | disposition home health service (06) | DRG 872 ==
LOC: ED 12:49 → MED 18:36 → OBSVTOIN 03-14 07:39
PROVIDERS: ADMIT Internal Medicine; ATTEND Internal Medicine
PROC: 06HM33Z Insertion of Infusion Device into Right Femoral Vein, Percutaneous Approach (ICD-10-PCS; 2019-03-14)
PROC: 02HV33Z Insertion of Infusion Device into Superior Vena Cava, Percutaneous Approach (ICD-10-PCS; principal; 2019-03-16)
DX: A41.9 Sepsis, unspecified organism (principal); L03.116 Cellulitis of left lower limb; I50.22 Chronic systolic (congestive) heart failure; L03.115 Cellulitis of right lower limb; B87.1 Wound myiasis; B87.0 Cutaneous myiasis; I25.10 Atherosclerotic heart disease of native coronary artery without angina pectoris; I11.0 Hypertensive heart disease with heart failure; E78.5 Hyperlipidemia, unspecified; K21.9 Gastro-esophageal reflux disease without esophagitis; E03.9 Hypothyroidism, unspecified; D64.9 Anemia, unspecified; B95.61 Methicillin susceptible Staphylococcus aureus infection as the cause of diseases classified elsewhere; B96.89 Other specified bacterial agents as the cause of diseases classified elsewhere; B95.2 Enterococcus as the cause of diseases classified elsewhere; K59.09 Other constipation; H91.90 Unspecified hearing loss, unspecified ear; M19.90 Unspecified osteoarthritis, unspecified site; F41.9 Anxiety disorder, unspecified; I95.9 Hypotension, unspecified; E11.42 Type 2 diabetes mellitus with diabetic polyneuropathy; E11.649 Type 2 diabetes mellitus with hypoglycemia without coma; I48.91 Unspecified atrial fibrillation; I89.0 Lymphedema, not elsewhere classified; L57.0 Actinic keratosis; Z79.82 Long term (current) use of aspirin; Z79.02 Long term (current) use of antithrombotics/antiplatelets; Z88.8 Allergy status to other drugs, medicaments and biological substances; Z79.4 Long term (current) use of insulin; Z82.49 Family history of ischemic heart disease and other diseases of the circulatory system; Z80.3 Family history of malignant neoplasm of breast; Z97.4 Presence of external hearing-aid; Z83.3 Family history of diabetes mellitus
CPT/HCPCS: 36415; 71045; 80048; 80053; 81003; 81015; 83605; 84484; 85025; 85610; 85730; 87040; 87070; 87077; 87086; 87186; 87205; 87640; 87641; 93005; 94640; 99284; A9270-GY; C1751; G0378; G8978-GP-CN; G8979-GP-CK; J0690; J0692; J1644; J2270; J2405; J3370

== ENCOUNTER 2019-11-08 13:51 | Inpatient (IN) | payer MEDICARE, OTHER ==
[2019-11-08 14:50] LABS: ABS Basophils 0.1 10^3/ul (0-0.2); ABS Eosinophils 0.1 10^3/ul (0-0.6); ABS Lymphocytes 1.5 10^3/ul (1.0-4.8); ABS Monocytes 0.9 10^3/ul (0-0.8); ABS Neutrophils 5.8 10^3/ul (1.5-7.7); Eosinophil % 1.4 %; Hematocrit 33 % (35-47); Hemoglobin 10.4 g/dL (12.0-16.0); Lymphocyte % 17.6 %; Mean Corpuscular HGB Conc 31 g/dL (31-36); Mean Corpuscular Hemoglobin 25 pg (27-31); Mean Corpuscular Volume 80 fL (80-97); Mean Platelet Volume 9.4 fL (7.4-10.4); Platelet Count 383 10^3/uL (150-450); Red Blood Count 4.15 10^6 /uL (3.70-4.87); Red Cell Distribution Width 16 % (10-15); White Blood Count 8.4 10^3/uL (3.5-10.8)
[2019-11-08 15:09] LABS: ALT 5 U/L (7-52); AST 10 U/L (13-39); Albumin 3.4 g/dL (3.2-5.2); Albumin/Globulin Ratio 0.7 (1-3); Alkaline Phosphatase 61 U/L (34-104); Anion Gap 10 mmol/L (2-11); BUN/Creatinine Ratio 43.7 (8-20); Blood Urea Nitrogen 45 mg/dL (6-24); C Reactive Protein 247.48 mg/L (<8.01); CO2 Carbon Dioxide 30 mmol/L (22-32); Chloride 98 mmol/L (101-111); EGFR African American 61.2 (>60); EGFR Non-African American 50.6 (>60); Glucose 415 mg/dL (70-100); Magnesium 1.9 mg/dL (1.9-2.7); Potassium 4.6 mmol/L (3.5-5.0); Sodium 138 mmol/L (135-145); Total Protein 8.4 g/dL (6.4-8.9)
[2019-11-08 15:13] LABS: Troponin I 0.03 ng/mL (<0.03)
[2019-11-08 15:16] LABS: Influenza A Molecular Negative (Negative); Influenza B Molecular Negative (Negative)
[2019-11-08] MEDS ORDERED: Azithromycin 500 mg/250 ml NS 500 MG/250 ML BAG IVPB ONE (16:18)
[2019-11-08] MEDS ORDERED: NS 0.9% 1000 ML** 1,000 ML IV ONE (16:18)
[2019-11-08] MEDS ORDERED: cefTRIAXone(*) 1 GM in NS 0.9% 50 ML* 50 ML IVPB ONE (16:18)
--- NOTE | 2019-11-08 17:00 | ED ---
HPI Diabetic - HPI Summary HPI Summary: This patient is a 88yo F presenting to the ED with concern for high BG at home per family. Also notes to a recent fever over the past few days and a cough. Patient is demented and unable to give hx. Per EMS, no fever or cough. PMH significant for CAD, CHF, A fib, HTN, HLD, DM with bilateral LE peripheral edema with previous wounds/cellulitis, hypothyroidism, GERD. Patient has had one sick contact, but this contact stated to EMS she only had a mild cough and runny nose, no fever or aches. Since resolved. BG's typically between 100-200. Recently 300-400. - History Of Current Complaint Chief Complaint: EDGeneral Time Seen by Provider: 11/08/19 13:55 Hx Obtained From: Patient Onset/Duration: Sudden Onset Timing: Constant Severity Initially: Moderate Severity Currently: Moderate Related History: DM II - Risk Factors Cardiac Risk Factors: Negative CVA Risk Factor: Negative Serious Bact. Infect. Risk Factors (Meningitis/Sepsis/UTI): Negative - Allergies/Home Medications Allergies/Adverse Reactions: Allergies Allergy/AdvReac Type Severity Reaction Status Date / Time enalapril Allergy Severe Swelling Verified 11/08/19 14:14 Home Medications: Home Medications Clopidogrel TAB* [Plavix TAB*] 75 mg PO DAILY 05/18/12 [History Confirmed ] Docusate CAP* [Colace Cap*] 100 mg PO BID 05/18/12 [History Confirmed 11/08/19] Famotidine TAB* [Pepcid 20 MG TAB*] 10 mg PO DAILY 05/18/12 [History Confirmed 11/08/19] traMADol TAB* [Ultram*] 50 - 100 mg PO Q8HR MDD 300mg 05/18/12 [History Confirmed 11/08/19] Acetaminophen TAB* [Tylenol TAB*] 650 mg PO Q6H PRN 05/29/15 [History Confirmed 11/08/19] Aspirin TAB* [Aspirin 325 MG TAB*] 325 mg PO DAILY 05/29/15 [History Confirmed 11/08/19] Polyethylene Glycol 3350* [Miralax (17 GM DOSE AAMIR)] 17 gm PO DAILY 05/29/15 [ History Confirmed 11/08/19] Atorvastatin* [Lipitor 10 MG*] 10 mg PO BEDTIME 11/28/18 [History Confirmed ] Furosemide TAB* [Lasix TAB*] 20 mg PO 1200 11/28/18 [History Confirmed 11/08/19] Furosemide TAB* [Lasix TAB*] 40 mg PO QAM 11/28/18 [History Confirmed 11/08/19] Levothyroxine TAB* [Synthroid 25 MCG TAB*] 25 mcg PO QAM 11/28/18 [History Confirmed 11/08/19] Spironolactone TAB* [Aldactone TAB 25 MG*] 25 mg PO QAM 11/28/18 [History Confirmed 11/08/19] Cholecalciferol (Vitamin D3) [Vitamin D3] 800 unit PO DAILY 03/12/19 [History Confirmed 11/08/19] Gabapentin CAP(*) [Neurontin 300 CAP(*)] 300 mg PO TID 03/12/19 [History Confirmed 11/08/19] Lanolin/Mineral Oil [Eucerin Original Lotion] 1 applic TOPICAL BID 03/12/19 [ History Confirmed 11/08/19] Lidocaine 1 applic TOPICAL .2-3X/DAY PRN 03/12/19 [History Confirmed 11/08/19] Senna/Docusate (NF) [Sennokot-S(NF)] 1 - 2 tab PO BID 03/12/19 [History Confirmed 11/08/19] Ammonium Lactate 12% [Lac-Hydrin 12 %] 1 applic TOPICAL DAILY #1 tube 03/17/19 [ Rx Confirmed 11/08/19] Insulin Glargine,Hum.rec.anlog [Lantus Solostar 100 units/ml 3 ml x 5 PENS] 10 units SUBCUT DAILY 11/08/19 [History Confirmed 11/08/19] Metoprolol Succinate XL TAB* [Toprol XL TAB*] 25 mg PO DAILY 11/08/19 [History Confirmed 11/08/19] Miconazole TOPICAL CREAM 2%* [Monistat 2%*] 1 applic TOPICAL BID 11/08/19 [ History Confirmed 11/08/19] Vits A and D/White Pet/Lanolin [A and D Ointment] 1 applic TOPICAL .AFTER DIAPER CHANGE 11/08/19 [History Confirmed 11/08/19] PMH/Surg Hx/FS Hx/Imm Hx Previously Healthy: Yes Endocrine/Hematology History: Reports: Hx Diabetes Cardiovascular History: Reports: Hx Congestive Heart Failure, Hx Hypertension, Other Cardiovascular Problems/Disorders - CAD Respiratory History: Denies: Hx Asthma, Hx Chronic Obstructive Pulmonary Disease (COPD) GI History: Reports: Other GI Disorders - LEFT FLANK PAIN RADIATES TO BACK / NAUSEA History: Reports: Hx Dialysis - NIDDM Musculoskeletal History: Reports: Hx Arthritis, Hx Back Problems Sensory History: Reports: Hx Contacts or Glasses - reading, Hx Hearing Aid, Hx Hearing Problem - hearing device, son will bring in tmrw Opthamlomology History: Reports: Hx Contacts or Glasses - reading Psychiatric History: Reports: Hx Anxiety - Surgical History Surgery Procedure, Year, and Place: Lasix - Immunization History Hx Pertussis Vaccination: No Immunizations Up to Date: Yes Infectious Disease History: No Infectious Disease History: Denies: Traveled Outside the [place] in Last 30 Days - Family History Known Family History: Positive: Cardiac Disease, Diabetes - Social History Occupation: Unemployed Lives: Alone Alcohol Use: None Hx Substance Use: No Substance Use Type: Reports: None Hx Tobacco Use: No Smoking Status (MU): Never Smoked Tobacco Review of Systems - ROS Summary Review of Systems Summary: LEVEL V CAVEAT Negative: Fever, Chills, Fatigue, Skin Diaphoresis Positive: Cough. Negative: Shortness Of Breath Genitourinary: Negative Positive: no symptoms reported, see HPI Negative: Arthralgia, Myalgia All Other Systems Reviewed And Are Negative: Yes Physical Exam Triage Information Reviewed: Yes Vital Signs On Initial Exam: Initial Vitals BP 103/80 11/08/19 14:07 Vital Signs Reviewed: Yes Appearance: Positive: Well-Appearing Skin: Positive: Warm, Skin Color Reflects Adequate Perfusion Head/Face: Positive: Normal Head/Face Inspection Eyes: Positive: Normal, CORBY, Conjunctiva Clear Neck: Positive: Supple, No Lymphadenopathy Respiratory/Lung Sounds: Positive: Clear to Auscultation, Breath Sounds Present Cardiovascular: Positive: RRR, Pulses are Symmetrical in both Upper and Lower Extremities Musculoskeletal: Positive: Normal, Strength/ROM Intact Neurological: Positive: Facial Symmetry Psychiatric: Positive: Normal, Affect/Mood Appropriate Procedures - Sedation Patient Received Moderate/Deep Sedation with Procedure: No Diagnostics - Vital Signs Vital Signs Temp Pulse Resp BP Pulse Ox 11/08/19 15:00 83 100 11/08/19 14:51 86 116/98 100 11/08/19 14:12 97.5 F 87 22 103/80 98 11/08/19 14:10 76 100 11/08/19 14:07 - Laboratory Lab Results: Lab Results 11/08/19 11/08/19 11/08/19 Range/Units 14:25 14:25 14:25 WBC 8.4 (3.5-10.8) 10^3/uL RBC 4.15 (3.70-4.87) 10^6 /uL Hgb 10.4 L (12.0-16.0) g/dL Hct 33 L (35-47) % MCV 80 (80-97) fL MCH 25 L (27-31) pg MCHC 31 (31-36) g/dL RDW 16 H (10-15) % Plt Count 383 (150-450) 10^3/uL MPV 9.4 (7.4-10.4) fL Neut % (Auto) 69.1 % Lymph % (Auto) 17.6 % [place] % (Auto) 11.1 % Eos % (Auto) 1.4 % Baso % (Auto) 0.8 % Absolute Neuts (auto) 5.8 (1.5-7.7) 10^3/ul Absolute Lymphs (auto) 1.5 (1.0-4.8) 10^3/ul Absolute Monos (auto) 0.9 H (0-0.8) 10^3/ul Absolute Eos (auto) 0.1 (0-0.6) 10^3/ul Absolute Basos (auto) 0.1 (0-0.2) 10^3/ul Absolute Nucleated RBC 0.0 10^3/ul Nucleated RBC % 0.0 VBG pH (7.32-7.43) VBG pCO2 (41-51) mmHg VBG pO2 (35-45) mmHg VBG HCO3 (24-28) mmol/L VBG O2 Saturation (70-80) % VBG Base Excess (0.0-4.0) mmol/L Sodium 138 (135-145) mmol/L Potassium 4.6 (3.5-5.0) mmol/L Chloride 98 L (101-111) mmol/L Carbon Dioxide 30 (22-32) mmol/L Anion Gap 10 (2-11) mmol/L BUN 45 H (6-24) mg/dL Creatinine 1.03 H (0.51-0.95) mg/dL Est GFR ( Amer) 61.2 (>60) Est GFR (Non-Af Amer) 50.6 (>60) BUN/Creatinine Ratio 43.7 H (8-20) Glucose 415 H (70-100) mg/dL Lactic Acid 1.5 (0.5-2.0) mmol/L Calcium 10.0 (8.6-10.3) mg/dL Magnesium 1.9 (1.9-2.7) mg/dL Total Bilirubin 0.50 (0.2-1.0) mg/dL AST 10 L (13-39) U/L ALT 5 L (7-52) U/L Alkaline Phosphatase 61 (34-104) U/L Troponin I 0.03 H* (<0.03) ng/mL C-Reactive Protein 247.48 H (<8.01) mg/L B-Natriuretic Peptide (<=100) pg/mL Total Protein 8.4 (6.4-8.9) g/dL Albumin 3.4 (3.2-5.2) g/dL Globulin 5.0 H (2-4) g/dL Albumin/Globulin Ratio 0.7 L (1-3) Influenza A (Rapid) (Negative) Influenza B (Rapid) (Negative) 11/08/19 11/08/19 11/08/19 Range/Units 14:25 14:25 16:05 WBC (3.5-10.8) 10^3/uL RBC (3.70-4.87) 10^6 /uL Hgb (12.0-16.0) g/dL Hct (35-47) % MCV (80-97) fL MCH (27-31) pg MCHC (31-36) g/dL RDW (10-15) % Plt Count (150-450) 10^3/uL MPV (7.4-10.4) fL Neut % (Auto) % Lymph % (Auto) % [place] % (Auto) % Eos % (Auto) % Baso % (Auto) % Absolute Neuts (auto) (1.5-7.7) 10^3/ul Absolute Lymphs (auto) (1.0-4.8) 10^3/ul Absolute Monos (auto) (0-0.8) 10^3/ul Absolute Eos (auto) (0-0.6) 10^3/ul Absolute Basos (auto) (0-0.2) 10^3/ul Absolute Nucleated RBC 10^3/ul Nucleated RBC % VBG pH 7.39 (7.32-7.43) VBG pCO2 59 H (41-51) mmHg VBG pO2 < 38.0 (35-45) mmHg VBG HCO3 29.6 H (24-28) mmol/L VBG O2 Saturation 21.4 L (70-80) % VBG Base Excess 8.6 H (0.0-4.0) mmol/L Sodium (135-145) mmol/L Potassium (3.5-5.0) mmol/L Chloride (101-111) mmol/L Carbon Dioxide (22-32) mmol/L Anion Gap (2-11) mmol/L BUN (6-24) mg/dL Creatinine (0.51-0.95) mg/dL Est GFR ( Amer) (>60) Est GFR (Non-Af Amer) (>60) BUN/Creatinine Ratio (8-20) Glucose (70-100) mg/dL Lactic Acid (0.5-2.0) mmol/L Calcium (8.6-10.3) mg/dL Magnesium (1.9-2.7) mg/dL Total Bilirubin (0.2-1.0) mg/dL AST (13-39) U/L ALT (7-52) U/L Alkaline Phosphatase (34-104) U/L Troponin I (<0.03) ng/mL C-Reactive Protein (<8.01) mg/L B-Natriuretic Peptide 180 H (<=100) pg/mL Total Protein (6.4-8.9) g/dL Albumin (3.2-5.2) g/dL Globulin (2-4) g/dL Albumin/Globulin Ratio (1-3) Influenza A (Rapid) Negative (Negative) Influenza B (Rapid) Negative (Negative) Result Diagrams: 11/08/19 14:25 11/08/19 14:25 Lab Statement: Any lab studies that have been ordered have been reviewed, and results considered in the medical decision making process. Diabetic Course/Dx - Course Course Of Treatment: This patient is evaluated for hyperglycemia, fever and cough. On arrival to the ED, the patient is noted to be hypoxic. She is 70% on room air. She was placed on 5 L with a sat of 97%. No history of COPD. She does have a history of CHF and bilateral lower extremity edema. No erythema to the area. Patient unable to give hx as she has dementia at baseline. Lungs do have crackles, RRR, EKG shows NSR. CXR positive for PNA. Negative flu. Patient is being ruled out for covid d/t cough, hypoxia, fever at home. Pt given fluids, azithromax and levquin. Will admit. - Diagnoses Differential Dx: Other - HYPERGLYCEMIA Provider Diagnoses: Pneumonia Discharge ED - Sign-Out/Discharge Documenting (check all that apply): Patient Departure - Discharge Plan Condition: Fair Disposition: ADMITTED TO [facility] Referrals: Kathy Marie MD [Primary Care Provider] - - Billing Disposition and Condition Condition: FAIR Disposition: Admitted to [facility]
[2019-11-08] MEDS ORDERED: Acetaminophen TAB* 325 MG PO PRN ×2 (17:13→17:19)
[2019-11-08] MEDS ORDERED: Dextrose 50% Syringe 50 ML* 25 GM/50 ML SYRINGE IV PUSH PRN (17:26)
[2019-11-08] MEDS ORDERED: Insulin LISPRO* 1 UNITS UNIT SUBCUT ONE (17:27)
[2019-11-08] MEDS: Atorvastatin* 10 MG TAB PO SCH (21:33)
[2019-11-08] MEDS: Docusate CAP* 100 MG PO SCH (21:33)
[2019-11-08] MEDS: Gabapentin CAP(*) 300 MG PO SCH (21:33)
[2019-11-08] MEDS: Enoxaparin(*) 40 MG/0.4 ML SYR SUBCUT SCH (21:33)
[2019-11-08] MEDS: Senna TAB 8.6 mg* TAB PO SCH (21:34)
--- NOTE | 2019-11-08 21:38 | HP ---
CC: Dr. Marie * HISTORY AND PHYSICAL: DATE OF ADMISSION: 11/08/19 PROVIDER: Caryn Marr NP PRIMARY CARE PHYSICIAN: Dr. Kathy Marie. ATTENDING PHYSICIAN WHILE IN THE HOSPITAL: Dr. Belen Childs * (dictated by Caryn Marr NP). CHIEF COMPLAINT: High blood sugar. HISTORY OF PRESENT ILLNESS: Ms. Tavera is an 88-year-old female with a past medical history significant for coronary artery disease, CHF, AFib, hypertension , hyperlipidemia, type 2 diabetes, hypothyroid, GERD, history of constipation, who presented to the emergency room today at the request per family due to high blood sugars. The patient has baseline dementia and is unable to fully participate in history of her present illness. This was obtained from her son over the phone. The son reports that the patient over the last 6 days has had a fever on and off with a cough as well for 6 days. He has been treating with [id number] Robitussin. He does report that her fever max was 101 at home and that she has also had increased level in her blood sugar for the past 4 days. Due to these symptoms, he sent the patient to the emergency room for further evaluation. The patient reports that she does not have any chest pain. The patient denies any shortness of breath. She denies any nausea or vomiting. She denies any pain with urination, but in conversation when the patient was asked where she was, she reports in [facility]. She is unable to state the date or tell any history of what has been going on. While in the emergency room, the patient had routine lab work drawn and a chest x- ray that showed right lower lobe pneumonia and found to be hyperglycemic with a blood sugar of 415. Due to these findings, Hospital Medicine was asked to see and evaluate her for admission. PAST MEDICAL HISTORY: Significant for: 1. Coronary artery disease. 2. History of CHF. 3. Atrial fibrillation. 4. Hypertension. 5. Hyperlipidemia. 6. Type 2 diabetes. 7. Hypothyroid. 8. GERD. 9. Chronic constipation. PAST SURGICAL HISTORY: None. MEDICATIONS: Home medications include: 1. Glipizide 10 mg in the morning, 2.5 at bedtime. 2. Clopidogrel 75 mg p.o. daily. 3. Tramadol 50 to 100 mg every 8 hours, the patient's son reports taking 50 mg once daily. 4. Famotidine 20 mg p.o. daily. 5. Aspirin 325 mg p.o. daily. 6. Colace 100 mg p.o. b.i.d. 7. Levothyroxine 25 mcg p.o. a.m. 8. Lipitor 10 mg at bedtime. 9. Vitamin D3 800 units p.o. daily. 10. Metoprolol 25 mg p.o. daily. 11. Eucerin original healing topically to her legs. 12. Aldactone 25 mg p.o. daily. 13. Gabapentin 300 mg p.o. t.i.d. 14. Lasix 40 mg in the morning, 20 mg at noon. 15. Senna 1 to 2 tablets p.o. daily, the patient is currently not taking. 16. Lidocaine 1 g topically t.i.d. p.r.n. 17. Insulin glargine 10 units subcu daily. 18. Acetaminophen 650 mg every 6 hours as needed for pain. ALLERGIES: ENALAPRIL. FAMILY HISTORY: Mother with a history of congestive heart failure. No reported history of diabetes. Grandmother had a history of breast cancer. SOCIAL HISTORY: Social history was obtained from past medical records. No reported history of tobacco, alcohol or illicit drug use. She lives with her son. Surrogate decision maker when she is unable to make her own decisions is her son, Anibal. She is a full code per the son. REVIEW OF SYSTEMS: Again, the patient is a poor historian. She denies any chest pain, shortness of breath, nausea, vomiting, diarrhea, any dysuria. The son reports no abdominal pain, no black or tarry stools. He does report she has baseline confusion. PHYSICAL EXAMINATION GENERAL: At this time, Ms. Tavera is an 88-year-old elderly female, sitting on the stretcher in the emergency room. She appears in no acute distress. She is pleasantly confused. Appears her state age. HEENT: Head is atraumatic, normocephalic. Eyes, EOMs are intact. Sclerae anicteric and not pale. Oral mucosa is moist. NECK: Supple. No lymphadenopathy. LUNGS: Diminished throughout. Clear with a few rhonchi in the right base. CARDIAC: S1, S2. Irregular rate and rhythm. No rubs or gallops. ABDOMEN: Soft and nontender. Bowel sounds are present x4. EXTREMITIES: The patient has nonpitting edema to bilateral lower extremities. The patient does have an ulceration to her left posterior calf and a small open area noted to the right calf. NEUROLOGIC: She has no gross focal deficits. She is pleasantly confused. Oriented to person only. LABORATORY DATA AND DIAGNOSTIC STUDIES: WBCs are 8.4, RBCs 4.15, hemoglobin 10.5, hematocrit is 33, platelet count is 383. Venous blood gas; pH is 7.39, pCO2 is 59, pO2 is less than 38, HCO3 was 29.6, venous O2 saturation was 21.4. Sodium 138, potassium 4.6, chloride 98, carbon dioxide 30, anion gap of 10, BUN was 45, creatinine was 1.03, glucose is 415, lactic acid 1.5, calcium 10.0, magnesium 1.9, total bilirubin 0.50, ASTs were 10, ALTs were 5, alkaline phosphatase is 61. Troponin was 0.03. C-reactive protein was 247. BNP was 180. Flu A and B were negative. She had a chest x-ray, radiologist's impression: Findings consistent with right basilar pneumonia. She had an electrocardiogram, which showed atrial fibrillation at a rate of 81. ASSESSMENT AND PLAN: Ms. Tavera is an 88-year-old female with past medical history significant for coronary artery disease, congestive heart failure, atrial fibrillation, hypertension, hyperlipidemia, type 2 diabetes, hypothyroid , gastroesophageal reflux disease, chronic constipation, who presented to the emergency room with the complaints of fever, cough and elevated blood sugar. She will be admitted under observation for: 1. Cough and fever. This is likely related to underlying pneumonia. The patient does have chest x-ray that shows right basilar pneumonia consistent with her presenting symptoms of cough and fever. She was given azithromycin, ceftriaxone in the emergency room. I will continue azithromycin, ceftriaxone. Blood cultures are currently pending. I will send her urine for Legionella and Strep pneumoniae. She can have supplemental oxygen as needed for shortness of breath and O2 saturations. The patient also does have a COVID-19 test that is currently pending, but I suspect that her cough and congestion is related to her underlying right basilar pneumonia. 2. Coronary artery disease. The patient has a history of coronary artery disease. The patient has mildly elevated troponin at 0.03. I suspect this is related to demand ischemia. We will continue to trend her troponins ordered and pending. The patient currently denies any chest pain. We will continue her home medications of clopidogrel, aspirin, and atorvastatin as previously prescribed. 3. History of congestive heart failure. The patient does not appear to be in exacerbation of her heart failure at this time. We will continue her metoprolol , spironolactone, Lasix and place her on strict I and Os and daily weights. 4. Atrial fibrillation. We will continue her on her metoprolol and aspirin as previously prescribed. 5. Hyperlipidemia. The patient will continue on a statin. 6. Type 2 diabetes. The patient is hyperglycemia with blood glucose 415. I will give her 15 units of lispro now and place her Lispro sliding scale. I will hold her glipizide. I will continue her home glargine at 10 units daily. 7. Hypothyroid. She will continue on her levothyroxine as previously prescribed. 8. Lower extremity wounds. The patient's lower legs both with edema and dry scaly skin. She does have ulcerations noted to the calf on her right and left legs. We will continue with daily dry dressings and monitor for any signs of infection. 9. Gastroesophageal reflux disease. She can continue on Pepcid as previously prescribed. 10. Chronic constipation. The patient will continue on Colace and Senna as needed for constipation. 11. FEN: She will be placed on a consistent carb diet. 12. DVT prophylaxis: The patient is high risk and she will be placed on Lovenox subcu. 13. Code status: She is a full code. TIME SPENT: Time spent on this admission was 60 minutes. Greater than half that time was spent obtaining by history and physical and performing physical exam, updating her son over the phone. I have discussed this with my attending, Dr. Belen Childs, she is in agreement with my plan. CARYN FAVIAN, CLINICAL PSYCHOLOGIST [id number]/[facility] #: [id number] JOSEFA
[2019-11-08] MEDS: Insulin LISPRO* 1 UNITS UNIT SUBCUT SCH (23:06)
[2019-11-09 04:24] LABS: Urine Appearance Cloudy; Urine Bilirubin Negative (Negative); Urine Blood 2+ (Negative); Urine Color Yellow; Urine Glucose Negative (Negative); Urine Ketones Negative (Negative); Urine Nitrite Negative (Negative); Urine Protein 1+(30 mg/dL) (Negative); Urine Specific Gravity 1.009 (1.010-1.030); Urine Urobilinogen Negative (Negative)
[2019-11-09 04:44] LABS: Urine Bacteria 2+ (Absent); Urine Red Blood Cell 3+(>10/hpf) (Absent); Urine Squamous Epithelial Cell Present (Absent); Urine White Blood Cell 3+(>20/hpf) (Absent)
[2019-11-09] MEDS: Levothyroxine TAB* 25 MCG TAB PO SCH (06:17)
[2019-11-09 07:50] LABS: CO2 Carbon Dioxide 25 mmol/L (22-32); Calcium 8.9 mg/dL (8.6-10.3); Chloride 102 mmol/L (101-111); Sodium 139 mmol/L (135-145)
[2019-11-09 07:56] LABS: Anion Gap 12 mmol/L (2-11); BUN/Creatinine Ratio 44.2 (8-20); Blood Urea Nitrogen 34 mg/dL (6-24); EGFR African American 85.6 (>60); EGFR Non-African American 70.7 (>60); Glucose 124 mg/dL (70-100)
--- NOTE | 2019-11-09 09:01 | PN ---
Subjective Date of Service: 11/09/19 Interval History: Although patient has baseline of dementia and demonstrates confusion she was reoriented to where she is, date, and why she is in the hospital. Pt denies any chest pain, SOB, dizziness or other complaints at this time. Family History: Unchanged from Admission Social History: Unchanged from Admission Past Medical History: Unchanged from Admission Objective Active Medications: Acetaminophen (Tylenol Tab*) 650 mg PO Q6H PRN PRN Reason: PAIN - MILD TO MODERATE Aspirin (Aspirin Tab*) 325 mg PO DAILY [facility] Atorvastatin Calcium (Lipitor*) 10 mg PO BEDTIME [facility] Last Admin: 11/08/19 21:33 Dose: 10 mg Cholecalciferol (Vitamin D Tab*) 800 unit PO DAILY [facility] Clopidogrel Bisulfate (Plavix Tab*) 75 mg PO DAILY [facility] Dextrose (D50w Syringe 50 Ml*) 12.5 gm IV PUSH .FOR FS < 60 - SS PRN PRN Reason: FS < 60 Docusate Sodium (Colace Cap*) 100 mg PO BID [facility] Last Admin: 11/08/19 21:33 Dose: 100 mg Enoxaparin Sodium (Lovenox(*)) 40 mg SUBCUT Q24H [facility] Last Admin: 11/08/19 21:33 Dose: 40 mg Famotidine (Pepcid Tab*) 10 mg PO DAILY [facility] Furosemide (Lasix Tab*) 40 mg PO QAM [facility] Furosemide (Lasix Tab*) 20 mg PO 1200 ANN Gabapentin (Neurontin Cap(*)) 300 mg PO TID [facility] Last Admin: 11/08/19 21:33 Dose: 300 mg Azithromycin (Zithromax 500 Mg/250 Ml) 500 mg in 250 mls @ 250 mls/hr IVPB Q24H [facility] Ceftriaxone Sodium 1 gm/ (Sodium Chloride) 50 mls @ 100 mls/hr IVPB Q24H [facility] Insulin Glargine (Lantus(*)) 10 units SUBCUT Q24H [facility] Insulin Human Lispro (Humalog*) 0 units SUBCUT ACHS [facility]; Protocol Last Admin: 11/08/19 23:06 Dose: Not Given Levothyroxine Sodium (Synthroid Tab*) 25 mcg PO QAM@0600 [facility] Last Admin: 11/09/19 06:17 Dose: 25 mcg Metoprolol Succinate (Toprol Xl Tab*) 25 mg PO DAILY [facility] Senna (Senokot 8.6 Mg Tab*) 1 tab PO BID [facility] Last Admin: 11/08/19 21:34 Dose: 1 tab Spironolactone (Aldactone Tab*) 25 mg PO QAM [facility] Vital Signs - 8 hr 11/09/19 04:20 Temperature 97.3 F Pulse Rate 67 Respiratory 18 Rate Blood Pressure 127/40 (mmHg) O2 Sat by Pulse 100 Oximetry Oxygen Devices in Use Now: Nasal Cannula Appearance: Elderly, obese woman laying in bed with head elevated. Does not appear to be in any distress. Eyes: No Scleral Icterus, PERRLA Ears/Nose/Mouth/Throat: NL Teeth, Lips, Gums, Clear Oropharnyx, Mucous Membranes Moist Neck: NL Appearance and Movements; NL JVP Respiratory: Symmetrical Chest Expansion and Respiratory Effort, - - Rales ausculated mid lungs to bases bilaterally Cardiovascular: - - Irregularly irregular sounds. No murmurs, rubs or gallups appreciated. Abdominal: NL Sounds; No Tenderness; No Distention, No Hepatosplenomegaly Extremities: - - +3 pitting edema to bilaterally lower extremities Skin: - - thickened, flaking skin noted bilaterally in lower extrems Neurological: NL Sensation, NL Muscle Strength and Tone, - - Oriented to self only Result Diagrams: 11/08/19 14:25 11/09/19 07:04 Additional Lab and Data: Lab Results 11/08/19 11/08/19 11/08/19 Range/Units 14:25 14:25 14:25 WBC 8.4 (3.5-10.8) 10^3/uL RBC 4.15 (3.70-4.87) 10^6 /uL Hgb 10.4 L (12.0-16.0) g/dL Hct 33 L (35-47) % MCV 80 (80-97) fL MCH 25 L (27-31) pg MCHC 31 (31-36) g/dL RDW 16 H (10-15) % Plt Count 383 (150-450) 10^3/uL MPV 9.4 (7.4-10.4) fL Neut % (Auto) 69.1 % Lymph % (Auto) 17.6 % [place] % (Auto) 11.1 % Eos % (Auto) 1.4 % Baso % (Auto) 0.8 % Absolute Neuts (auto) 5.8 (1.5-7.7) 10^3/ul Absolute Lymphs (auto) 1.5 (1.0-4.8) 10^3/ul Absolute Monos (auto) 0.9 H (0-0.8) 10^3/ul Absolute Eos (auto) 0.1 (0-0.6) 10^3/ul Absolute Basos (auto) 0.1 (0-0.2) 10^3/ul Absolute Nucleated RBC 0.0 10^3/ul Nucleated RBC % 0.0 VBG pH (7.32-7.43) VBG pCO2 (41-51) mmHg VBG pO2 (35-45) mmHg VBG HCO3 (24-28) mmol/L VBG O2 Saturation (70-80) % VBG Base Excess (0.0-4.0) mmol/L Sodium 138 (135-145) mmol/L Potassium 4.6 (3.5-5.0) mmol/L Chloride 98 L (101-111) mmol/L Carbon Dioxide 30 (22-32) mmol/L Anion Gap 10 (2-11) mmol/L BUN 45 H (6-24) mg/dL Creatinine 1.03 H (0.51-0.95) mg/dL Est GFR ( Amer) 61.2 (>60) Est GFR (Non-Af Amer) 50.6 (>60) BUN/Creatinine Ratio 43.7 H (8-20) Glucose 415 H (70-100) mg/dL Lactic Acid 1.5 (0.5-2.0) mmol/L Calcium 10.0 (8.6-10.3) mg/dL Magnesium 1.9 (1.9-2.7) mg/dL Total Bilirubin 0.50 (0.2-1.0) mg/dL AST 10 L (13-39) U/L ALT 5 L (7-52) U/L Alkaline Phosphatase 61 (34-104) U/L Troponin I 0.03 H* (<0.03) ng/mL C-Reactive Protein 247.48 H (<8.01) mg/L B-Natriuretic Peptide (<=100) pg/mL Total Protein 8.4 (6.4-8.9) g/dL Albumin 3.4 (3.2-5.2) g/dL Globulin 5.0 H (2-4) g/dL Albumin/Globulin Ratio 0.7 L (1-3) Influenza A (Rapid) (Negative) Influenza B (Rapid) (Negative) 11/08/19 11/08/19 11/08/19 Range/Units 14:25 14:25 16:05 WBC (3.5-10.8) 10^3/uL RBC (3.70-4.87) 10^6 /uL Hgb (12.0-16.0) g/dL Hct (35-47) % MCV (80-97) fL MCH (27-31) pg MCHC (31-36) g/dL RDW (10-15) % Plt Count (150-450) 10^3/uL MPV (7.4-10.4) fL Neut % (Auto) % Lymph % (Auto) % [place] % (Auto) % Eos % (Auto) % Baso % (Auto) % Absolute Neuts (auto) (1.5-7.7) 10^3/ul Absolute Lymphs (auto) (1.0-4.8) 10^3/ul Absolute Monos (auto) (0-0.8) 10^3/ul Absolute Eos (auto) (0-0.6) 10^3/ul Absolute Basos (auto) (0-0.2) 10^3/ul Absolute Nucleated RBC 10^3/ul Nucleated RBC % VBG pH 7.39 (7.32-7.43) VBG pCO2 59 H (41-51) mmHg VBG pO2 < 38.0 (35-45) mmHg VBG HCO3 29.6 H (24-28) mmol/L VBG O2 Saturation 21.4 L (70-80) % VBG Base Excess 8.6 H (0.0-4.0) mmol/L Sodium (135-145) mmol/L Potassium (3.5-5.0) mmol/L Chloride (101-111) mmol/L Carbon Dioxide (22-32) mmol/L Anion Gap (2-11) mmol/L BUN (6-24) mg/dL Creatinine (0.51-0.95) mg/dL Est GFR ( Amer) (>60) Est GFR (Non-Af Amer) (>60) BUN/Creatinine Ratio (8-20) Glucose (70-100) mg/dL Lactic Acid (0.5-2.0) mmol/L Calcium (8.6-10.3) mg/dL Magnesium (1.9-2.7) mg/dL Total Bilirubin (0.2-1.0) mg/dL AST (13-39) U/L ALT (7-52) U/L Alkaline Phosphatase (34-104) U/L Troponin I (<0.03) ng/mL C-Reactive Protein (<8.01) mg/L B-Natriuretic Peptide 180 H (<=100) pg/mL Total Protein (6.4-8.9) g/dL Albumin (3.2-5.2) g/dL Globulin (2-4) g/dL Albumin/Globulin Ratio (1-3) Influenza A (Rapid) Negative (Negative) Influenza B (Rapid) Negative (Negative) Microbiology and Other Data: Microbiology 11/09/19 04:00 Legionella Urinary Antigen - Final Urine Negative Legionella Antigen Streptococcus pneumoniae Ag Screen - Final Negative S. pneumo Antigen Assess/Plan/Problems-Billing Assessment: 88 year old female with history significant for dementia, CAD, Afib, HTN, CHF, DM2, Hyperlipidemia, and Hypothyroid with 6 day history of cough, fever, and hyperglycemia. Ms. Tavera has been admitted to hospital for RLL PNA and COVID 19 rule out. 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 Midline ordered (4) Diabetes mellitus type 2 Current Visit: No Comment: - On lispro SS, accuchecks ACHS - Lantus (5) CAD (coronary artery disease) Current Visit: No Comment: - Aspirin 325mg - Atorvastatin - Plavix (6) Chronic systolic congestive heart failure Current Visit: No Comment: - Continue Metoprolol, Furosemide, Spironolactone - Not in exacerbation - +3 Pitting edema bilaterally lower extrems - Pt with hx of angioedema on JAVI (7) Hyperlipidemia Current Visit: No Comment: - Continue atorvastatin (8) Hypertension Current Visit: No Comment: - Well controlled on Metoprolol, Spironolactone, Furosemide (9) Hypothyroidism Current Visit: No Comment: - Continue levothyroxine (10) Lower extremity edema Current Visit: No Comment: -Peripheral pulses not palpable R/T edema -Skin thickened and loose bilateral low extrems. -No weeping noted in lower extrems -Skin flaking (11) DVT prophylaxis Current Visit: No Comment: -Lovenox SQ
[2019-11-09] MEDS: Insulin LISPRO* 1 UNITS UNIT SUBCUT SCH ×4 (09:11→23:22)
[2019-11-09] MEDS: Senna TAB 8.6 mg* TAB PO SCH (09:12)
[2019-11-09] MEDS: Cholecalciferol TAB* 400 UNIT PO SCH (09:12)
[2019-11-09] MEDS: Spironolactone TAB* 25 MG PO SCH (09:12)
[2019-11-09] MEDS: Gabapentin CAP(*) 300 MG PO SCH ×3 (09:13→23:01)
[2019-11-09] MEDS: Clopidogrel TAB* 75 MG PO SCH (09:13)
[2019-11-09] MEDS: Docusate CAP* 100 MG PO SCH ×2 (09:13→22:53)
[2019-11-09] MEDS: Aspirin TAB* 325 MG PO SCH (09:13)
[2019-11-09] MEDS: Metoprolol Succinate XL TAB* 25 MG PO SCH (09:13)
[2019-11-09] MEDS: Insulin GLARGINE(*) 1 UNITS UNIT SUBCUT SCH (09:14)
[2019-11-09] MEDS: Famotidine TAB* 20 MG PO SCH (09:14)
[2019-11-09] MEDS: Furosemide TAB* 20 MG PO SCH (12:33)
[2019-11-09] MEDS ORDERED: cefTRIAXone(*) 1 GM in NS 0.9% 50 ML* 50 ML IVPB SCH (14:30)
[2019-11-09] MEDS ORDERED: Azithromycin 500 mg/250 ml NS 500 MG/250 ML BAG IVPB SCH (18:00)
[2019-11-09] MEDS ORDERED: cefTRIAXone VIAL(*) 1,000 MG VIAL IM ONE (21:43)
[2019-11-09] MEDS: Enoxaparin(*) 40 MG/0.4 ML SYR SUBCUT SCH (22:42)
[2019-11-09] MEDS: Azithromycin TAB* 250 MG PO ONE (23:04)
[2019-11-09] MEDS: Atorvastatin* 10 MG TAB PO SCH (23:09)
[2019-11-10] MEDS: Senna TAB 8.6 mg* TAB PO SCH ×3 (00:03→21:03)
[2019-11-10] MEDS: Azithromycin TAB* 250 MG PO ONE (00:03)
[2019-11-10] MEDS: Levothyroxine TAB* 25 MCG TAB PO SCH (05:15)
[2019-11-10] MEDS: Docusate CAP* 100 MG PO SCH ×2 (07:29→21:03)
[2019-11-10] MEDS: Cholecalciferol TAB* 400 UNIT PO SCH (08:13)
[2019-11-10] MEDS: Spironolactone TAB* 25 MG PO SCH (08:15)
[2019-11-10] MEDS: Metoprolol Succinate XL TAB* 25 MG PO SCH (08:16)
[2019-11-10] MEDS: Aspirin TAB* 325 MG PO SCH (08:17)
[2019-11-10] MEDS: Famotidine TAB* 20 MG PO SCH (08:19)
[2019-11-10] MEDS: Gabapentin CAP(*) 300 MG PO SCH ×3 (08:20→21:02)
[2019-11-10] MEDS: Furosemide TAB* 40 MG PO SCH (08:22)
[2019-11-10] MEDS: Clopidogrel TAB* 75 MG PO SCH (08:23)
[2019-11-10 08:29] LABS: ABS Eosinophils 0.2 10^3/ul (0-0.6); ABS Lymphocytes 2.3 10^3/ul (1.0-4.8); ABS Monocytes 0.9 10^3/ul (0-0.8); ABS Neutrophils 4.3 10^3/ul (1.5-7.7); Hematocrit 31 % (35-47); Hemoglobin 9.7 g/dL (12.0-16.0); Lymphocyte % 29.8 %; Mean Corpuscular HGB Conc 31 g/dL (31-36); Mean Corpuscular Hemoglobin 25 pg (27-31); Mean Corpuscular Volume 81 fL (80-97); Mean Platelet Volume 9.2 fL (7.4-10.4); Platelet Count 326 10^3/uL (150-450); Red Blood Count 3.89 10^6 /uL (3.70-4.87); Red Cell Distribution Width 15 % (10-15); White Blood Count 7.7 10^3/uL (3.5-10.8)
[2019-11-10 08:42] LABS: Troponin I 0.02 ng/mL (<0.03)
[2019-11-10] MEDS: Insulin LISPRO* 1 UNITS UNIT SUBCUT SCH ×4 (08:46→21:06)
[2019-11-10] MEDS: Insulin GLARGINE(*) 1 UNITS UNIT SUBCUT SCH ×2 (09:40→13:20)
--- NOTE | 2019-11-10 10:35 | PN ---
Subjective Date of Service: 11/10/19 Interval History: Pt status unchanged denies any discomfort. Denies SOB chest pain or dizziness. pt is confused, unaware of location or date, does know self. However, when asked how she is feeling she reports "im feeling much better". Pt's nurse discussed with pt's son advance directives, Pt's son reports that he wants mother to maintain her full code status. Family History: Unchanged from Admission Social History: Unchanged from Admission Past Medical History: Unchanged from Admission Objective Active Medications: Acetaminophen (Tylenol Tab*) 650 mg PO Q6H PRN PRN Reason: PAIN - MILD TO MODERATE Aspirin (Aspirin Tab*) 325 mg PO DAILY [facility] Last Admin: 11/10/19 08:17 Dose: 325 mg Atorvastatin Calcium (Lipitor*) 10 mg PO BEDTIME [facility] Last Admin: 11/09/19 23:09 Dose: 10 mg Cholecalciferol (Vitamin D Tab*) 800 unit PO DAILY [facility] Last Admin: 11/10/19 08:13 Dose: 800 unit Clopidogrel Bisulfate (Plavix Tab*) 75 mg PO DAILY [facility] Last Admin: 11/10/19 08:23 Dose: 75 mg Dextrose (D50w Syringe 50 Ml*) 12.5 gm IV PUSH .FOR FS < 60 - SS PRN PRN Reason: FS < 60 Docusate Sodium (Colace Cap*) 100 mg PO BID [facility] Last Admin: 11/10/19 07:29 Dose: Not Given Enoxaparin Sodium (Lovenox(*)) 40 mg SUBCUT Q24H [facility] Last Admin: 11/09/19 22:42 Dose: 40 mg Famotidine (Pepcid Tab*) 10 mg PO DAILY [facility] Last Admin: 11/10/19 08:19 Dose: 10 mg Furosemide (Lasix Tab*) 40 mg PO QAM [facility] Last Admin: 11/10/19 08:22 Dose: 40 mg Furosemide (Lasix Tab*) 20 mg PO 1200 [facility] Last Admin: 11/09/19 12:33 Dose: 20 mg Gabapentin (Neurontin Cap(*)) 300 mg PO TID [facility] Last Admin: 11/10/19 08:20 Dose: 300 mg Azithromycin (Zithromax 500 Mg/250 Ml) 500 mg in 250 mls @ 250 mls/hr IVPB Q24HR@2200 [facility] Ceftriaxone Sodium 1 gm/ (Sodium Chloride) 50 mls @ 100 mls/hr IVPB 2130 [facility] Insulin Glargine (Lantus(*)) 10 units SUBCUT Q24H [facility] Last Admin: 11/10/19 09:40 Dose: Not Given Insulin Human Lispro (Humalog*) 0 units SUBCUT ACHS [facility]; Protocol Last Admin: 11/10/19 08:46 Dose: Not Given Levothyroxine Sodium (Synthroid Tab*) 25 mcg PO QAM@0600 [facility] Last Admin: 11/10/19 05:15 Dose: 25 mcg Metoprolol Succinate (Toprol Xl Tab*) 25 mg PO DAILY [facility] Last Admin: 11/10/19 08:16 Dose: 25 mg Senna (Senokot 8.6 Mg Tab*) 1 tab PO BID [facility] Last Admin: 11/10/19 07:30 Dose: Not Given Spironolactone (Aldactone Tab*) 25 mg PO QAM [facility] Last Admin: 11/10/19 08:15 Dose: 25 mg Vital Signs - 8 hr 11/10/19 11/10/19 11/10/19 03:56 08:00 08:20 Temperature 97.6 F 97.1 F Pulse Rate 55 73 Respiratory 16 22 22 Rate Blood Pressure 125/41 99/40 (mmHg) O2 Sat by Pulse 100 96 Oximetry Oxygen Devices in Use Now: Nasal Cannula Appearance: Obese elderly female patient laying in bed sleeping, does not appear to be in any distress. Eyes: No Scleral Icterus, PERRLA Ears/Nose/Mouth/Throat: NL Teeth, Lips, Gums, Clear Oropharnyx, Mucous Membranes Moist Neck: NL Appearance and Movements; NL JVP, Trachea Midline, No Thyroid Enlargement, Masses Respiratory: Symmetrical Chest Expansion and Respiratory Effort, - - Rales heard bilaterally, mid lungs to bases. Cardiovascular: NL Sounds; No Murmurs; No JVD, - - Irregular rate. +4 chronic edema lower extremities. Abdominal: NL Sounds; No Tenderness; No Distention, No Hepatosplenomegaly Extremities: - - Chronic +4 pitting edema bilateral lower extrems Skin: - - Open areas back of legs calf region, skin over legs is flaking with bark like appearance Neurological: NL Sensation, NL Muscle Strength and Tone Nutrition: Taking PO's Result Diagrams: 11/10/19 23:20 11/10/19 23:22 Additional Lab and Data: Lab Results 11/08/19 11/08/19 11/08/19 Range/Units 14:25 14:25 14:25 WBC 8.4 (3.5-10.8) 10^3/uL RBC 4.15 (3.70-4.87) 10^6 /uL Hgb 10.4 L (12.0-16.0) g/dL Hct 33 L (35-47) % MCV 80 (80-97) fL MCH 25 L (27-31) pg MCHC 31 (31-36) g/dL RDW 16 H (10-15) % Plt Count 383 (150-450) 10^3/uL MPV 9.4 (7.4-10.4) fL Neut % (Auto) 69.1 % Lymph % (Auto) 17.6 % [place] % (Auto) 11.1 % Eos % (Auto) 1.4 % Baso % (Auto) 0.8 % Absolute Neuts (auto) 5.8 (1.5-7.7) 10^3/ul Absolute Lymphs (auto) 1.5 (1.0-4.8) 10^3/ul Absolute Monos (auto) 0.9 H (0-0.8) 10^3/ul Absolute Eos (auto) 0.1 (0-0.6) 10^3/ul Absolute Basos (auto) 0.1 (0-0.2) 10^3/ul Absolute Nucleated RBC 0.0 10^3/ul Nucleated RBC % 0.0 VBG pH (7.32-7.43) VBG pCO2 (41-51) mmHg VBG pO2 (35-45) mmHg VBG HCO3 (24-28) mmol/L VBG O2 Saturation (70-80) % VBG Base Excess (0.0-4.0) mmol/L Sodium 138 (135-145) mmol/L Potassium 4.6 (3.5-5.0) mmol/L Chloride 98 L (101-111) mmol/L Carbon Dioxide 30 (22-32) mmol/L Anion Gap 10 (2-11) mmol/L BUN 45 H (6-24) mg/dL Creatinine 1.03 H (0.51-0.95) mg/dL Est GFR ( Amer) 61.2 (>60) Est GFR (Non-Af Amer) 50.6 (>60) BUN/Creatinine Ratio 43.7 H (8-20) Glucose 415 H (70-100) mg/dL Lactic Acid 1.5 (0.5-2.0) mmol/L Calcium 10.0 (8.6-10.3) mg/dL Magnesium 1.9 (1.9-2.7) mg/dL Total Bilirubin 0.50 (0.2-1.0) mg/dL AST 10 L (13-39) U/L ALT 5 L (7-52) U/L Alkaline Phosphatase 61 (34-104) U/L Troponin I 0.03 H* (<0.03) ng/mL C-Reactive Protein 247.48 H (<8.01) mg/L B-Natriuretic Peptide (<=100) pg/mL Total Protein 8.4 (6.4-8.9) g/dL Albumin 3.4 (3.2-5.2) g/dL Globulin 5.0 H (2-4) g/dL Albumin/Globulin Ratio 0.7 L (1-3) Influenza A (Rapid) (Negative) Influenza B (Rapid) (Negative) 11/08/19 11/08/19 11/08/19 Range/Units 14:25 14:25 16:05 WBC (3.5-10.8) 10^3/uL RBC (3.70-4.87) 10^6 /uL Hgb (12.0-16.0) g/dL Hct (35-47) % MCV (80-97) fL MCH (27-31) pg MCHC (31-36) g/dL RDW (10-15) % Plt Count (150-450) 10^3/uL MPV (7.4-10.4) fL Neut % (Auto) % Lymph % (Auto) % Terry % (Auto) % Eos % (Auto) % Baso % (Auto) % Absolute Neuts (auto) (1.5-7.7) 10^3/ul Absolute Lymphs (auto) (1.0-4.8) 10^3/ul Absolute Monos (auto) (0-0.8) 10^3/ul Absolute Eos (auto) (0-0.6) 10^3/ul Absolute Basos (auto) (0-0.2) 10^3/ul Absolute Nucleated RBC 10^3/ul Nucleated RBC % VBG pH 7.39 (7.32-7.43) VBG pCO2 59 H (41-51) mmHg VBG pO2 < 38.0 (35-45) mmHg VBG HCO3 29.6 H (24-28) mmol/L VBG O2 Saturation 21.4 L (70-80) % VBG Base Excess 8.6 H (0.0-4.0) mmol/L Sodium (135-145) mmol/L Potassium (3.5-5.0) mmol/L Chloride (101-111) mmol/L Carbon Dioxide (22-32) mmol/L Anion Gap (2-11) mmol/L BUN (6-24) mg/dL Creatinine (0.51-0.95) mg/dL Est GFR ( Amer) (>60) Est GFR (Non-Af Amer) (>60) BUN/Creatinine Ratio (8-20) Glucose (70-100) mg/dL Lactic Acid (0.5-2.0) mmol/L Calcium (8.6-10.3) mg/dL Magnesium (1.9-2.7) mg/dL Total Bilirubin (0.2-1.0) mg/dL AST (13-39) U/L ALT (7-52) U/L Alkaline Phosphatase (34-104) U/L Troponin I (<0.03) ng/mL C-Reactive Protein (<8.01) mg/L B-Natriuretic Peptide 180 H (<=100) pg/mL Total Protein (6.4-8.9) g/dL Albumin (3.2-5.2) g/dL Globulin (2-4) g/dL Albumin/Globulin Ratio (1-3) Influenza A (Rapid) Negative (Negative) Influenza B (Rapid) Negative (Negative) Microbiology and Other Data: Microbiology 11/09/19 04:00 Legionella Urinary Antigen - Final Urine Negative Legionella Antigen Streptococcus pneumoniae Ag Screen - Final Negative S. pneumo Antigen Assess/Plan/Problems-Billing Assessment: 88 year old female with history significant for dementia, CAD, Afib, HTN, CHF, DM2, Hyperlipidemia, and Hypothyroid with 6 day history of cough, fever, and hyperglycemia. Ms. Tavera has been admitted to hospital for RLL PNA and COVID 19 rule out. - Patient Problems (1) Right lower lobe pneumonia Current Visit: Yes Comment: -Ceftriaxone and Azithromycin IV Q24H -Lung sounds with rales bilaterally -COVID 19 negative result contact precautions lifted. -Labs were drawn today after PIV placed (2) At risk for aspiration Current Visit: Yes Comment: -Per Nursing pt coughing with taking PO fluids during paramedic -Speech therapy recommends nectar thick liquids and mechanical ground food (3) Atrial fibrillation Current Visit: No Comment: - Rate controlled, - Continue metoprolol - Plavix 75mg - Aspirin - Multiple attempts to draw blood for repeat labs have failed. Midline ordered (4) Diabetes mellitus type 2 Current Visit: Yes Comment: - On lispro SS, accuchecks ACHS also Lantus - BGL 50 prior to eating breakfast, recheck ordered, Recheck found BGL 165 - Lantus dose decreased to 8 Units will continue to evaluate (5) CAD (coronary artery disease) Current Visit: Yes Comment: - Aspirin 325mg - Atorvastatin - Plavix (6) Chronic systolic congestive heart failure Current Visit: No Comment: - Continue Metoprolol, Furosemide, Spironolactone - Not in exacerbation - +4 Pitting edema bilaterally lower extrems - Pt with hx of angioedema on JAVI (7) Hyperlipidemia Current Visit: No Comment: - Continue atorvastatin (8) Hypertension Current Visit: No Comment: - Well controlled on Metoprolol, Spironolactone, Furosemide (9) Hypothyroidism Current Visit: No Comment: - Continue levothyroxine (10) Lower extremity edema Current Visit: No Comment: -Peripheral pulses not palpable R/T edema -Skin thickened and barklike bilateral low extrems. -No weeping noted in lower extrems -Skin flaking (11) DVT prophylaxis Current Visit: No Comment: -Lovenox SQ Status and Disposition: Guarded
[2019-11-10] MEDS: Furosemide TAB* 20 MG PO SCH (13:20)
[2019-11-10] MEDS: Atorvastatin* 10 MG TAB PO SCH (21:03)
[2019-11-10] MEDS: Enoxaparin(*) 40 MG/0.4 ML SYR SUBCUT SCH (21:05)
[2019-11-10] MEDS: cefTRIAXone(*) 1 GM in NS 0.9% 50 ML* 50 ML IVPB SCH (21:41)
[2019-11-10] MEDS: Azithromycin 500 mg/250 ml NS 500 MG/250 ML BAG IVPB SCH (22:53)
[2019-11-10 23:36] LABS: ABS Eosinophils 0.2 10^3/ul (0-0.6); ABS Lymphocytes 1.3 10^3/ul (1.0-4.8); ABS Monocytes 0.7 10^3/ul (0-0.8); ABS Neutrophils 4.8 10^3/ul (1.5-7.7); Eosinophil % 2.7 %; Hematocrit 28 % (35-47); Hemoglobin 8.5 g/dL (12.0-16.0); Lymphocyte % 18.3 %; Mean Corpuscular HGB Conc 31 g/dL (31-36); Mean Corpuscular Hemoglobin 24 pg (27-31); Mean Corpuscular Volume 80 fL (80-97); Mean Platelet Volume 8.9 fL (7.4-10.4); Nucleated Red Blood Cells % 0.1; Platelet Count 287 10^3/uL (150-450); Red Blood Count 3.49 10^6 /uL (3.70-4.87); Red Cell Distribution Width 15 % (10-15)
[2019-11-10 23:49] LABS: Albumin 2.6 g/dL (3.2-5.2); Albumin/Globulin Ratio 0.7 (1-3); BUN/Creatinine Ratio 24.6 (8-20); Calcium 8.5 mg/dL (8.6-10.3); EGFR African American 97.2 (>60); EGFR Non-African American 80.3 (>60); Globulin 3.6 g/dL (2-4); Potassium 3.4 mmol/L (3.5-5.0); Total Bilirubin 0.3 mg/dL (0.2-1.0); Total Protein 6.2 g/dL (6.4-8.9)
[2019-11-11 03:22] LABS: Magnesium 1.4 mg/dL (1.9-2.7)
[2019-11-11] MEDS: KCL 20 MEQ/100 ML IVPREMIX* 20 MEQ/100 ML BAG IV SCH ×2 (03:43→05:56)
[2019-11-11] MEDS ORDERED: Magnesium Sulfate IV* 3 GM in NS 0.9% 100 ML* 100 ML IVPB ONE (03:57)
[2019-11-11] MEDS: Levothyroxine TAB* 25 MCG TAB PO SCH (06:06)
[2019-11-11] MEDS: Insulin LISPRO* 1 UNITS UNIT SUBCUT SCH ×4 (09:18→22:27)
[2019-11-11] MEDS: Cholecalciferol TAB* 400 UNIT PO SCH (09:19)
[2019-11-11] MEDS: Aspirin TAB* 325 MG PO SCH (09:19)
[2019-11-11] MEDS: Clopidogrel TAB* 75 MG PO SCH (09:19)
[2019-11-11] MEDS: Metoprolol Succinate XL TAB* 25 MG PO SCH (09:19)
[2019-11-11] MEDS: Gabapentin CAP(*) 300 MG PO SCH ×3 (09:19→22:20)
[2019-11-11] MEDS: Insulin GLARGINE(*) 1 UNITS UNIT SUBCUT SCH (09:19)
[2019-11-11] MEDS: Spironolactone TAB* 25 MG PO SCH (09:19)
[2019-11-11] MEDS: Furosemide TAB* 40 MG PO SCH (09:20)
[2019-11-11] MEDS: Famotidine TAB* 20 MG PO SCH (09:20)
[2019-11-11] MEDS: Docusate CAP* 100 MG PO SCH ×2 (09:28→22:00)
[2019-11-11] MEDS: Senna TAB 8.6 mg* TAB PO SCH ×2 (09:28→22:00)
--- NOTE | 2019-11-11 10:08 | PN ---
Subjective Date of Service: 11/11/19 Interval History: Pt is alert to self, place, and year today which is a great improvement from the last 2 days. Pt denies any SOB, CP, or dizziness. Pt's only complaint this AM is that her heals are painful, which were elevated upon complaint. I spoke to patients son Anibal and he is in agreement with plan to send patient to short term rehab. Family History: Unchanged from Admission Social History: Unchanged from Admission Past Medical History: Unchanged from Admission Objective Active Medications: Acetaminophen (Tylenol Tab*) 650 mg PO Q6H PRN PRN Reason: PAIN - MILD TO MODERATE Aspirin (Aspirin Tab*) 325 mg PO DAILY [facility] Last Admin: 11/11/19 09:19 Dose: 325 mg Atorvastatin Calcium (Lipitor*) 10 mg PO BEDTIME [facility] Last Admin: 11/10/19 21:03 Dose: 10 mg Cholecalciferol (Vitamin D Tab*) 800 unit PO DAILY [facility] Last Admin: 11/11/19 09:19 Dose: 800 unit Clopidogrel Bisulfate (Plavix Tab*) 75 mg PO DAILY [facility] Last Admin: 11/11/19 09:19 Dose: 75 mg Dextrose (D50w Syringe 50 Ml*) 12.5 gm IV PUSH .FOR FS < 60 - SS PRN PRN Reason: FS < 60 Docusate Sodium (Colace Cap*) 100 mg PO BID [facility] Last Admin: 11/11/19 09:28 Dose: Not Given Enoxaparin Sodium (Lovenox(*)) 40 mg SUBCUT Q24H [facility] Last Admin: 11/10/19 21:05 Dose: 40 mg Famotidine (Pepcid Tab*) 10 mg PO DAILY [facility] Last Admin: 11/11/19 09:20 Dose: 10 mg Furosemide (Lasix Tab*) 40 mg PO QAM [facility] Last Admin: 11/11/19 09:20 Dose: 40 mg Furosemide (Lasix Tab*) 20 mg PO 1200 [facility] Last Admin: 11/10/19 13:20 Dose: 20 mg Gabapentin (Neurontin Cap(*)) 300 mg PO TID [facility] Last Admin: 11/11/19 09:19 Dose: 300 mg Heparin Sodium (Porcine) (Heparin Flush Picc/Ml/Cvc(*)) 1 - 3 ml FLUSH 0600, 1800 [facility]; Protocol Last Admin: 11/10/19 17:40 Dose: 1 ml Azithromycin (Zithromax 500 Mg/250 Ml) 500 mg in 250 mls @ 250 mls/hr IVPB Q24HR@2200 [facility] Last Admin: 11/10/19 22:53 Dose: 250 mls/hr Ceftriaxone Sodium 1 gm/ (Sodium Chloride) 50 mls @ 100 mls/hr IVPB 2130 [facility] Last Admin: 11/10/19 21:41 Dose: 100 mls/hr Insulin Glargine (Lantus(*)) 8 units SUBCUT DAILY [facility] Last Admin: 11/11/19 09:19 Dose: 8 units Insulin Human Lispro (Humalog*) 0 units SUBCUT ACHS [facility]; Protocol Last Admin: 11/11/19 09:18 Dose: 2 units Levothyroxine Sodium (Synthroid Tab*) 25 mcg PO QAM@0600 [facility] Last Admin: 11/11/19 06:06 Dose: 25 mcg Magnesium Oxide (Magox 400 Tab*) 800 mg PO DAILY [facility] Metoprolol Succinate (Toprol Xl Tab*) 25 mg PO DAILY [facility] Last Admin: 11/11/19 09:19 Dose: 25 mg Senna (Senokot 8.6 Mg Tab*) 1 tab PO BID [facility] Last Admin: 11/11/19 09:28 Dose: Not Given Spironolactone (Aldactone Tab*) 25 mg PO QAM [facility] Last Admin: 11/11/19 09:19 Dose: 25 mg Vital Signs - 8 hr 11/11/19 11/11/19 11/11/19 02:51 08:06 08:20 Temperature 97.2 F 97.3 F Pulse Rate 57 63 Respiratory 14 16 12 Rate Blood Pressure 111/33 154/51 (mmHg) O2 Sat by Pulse 100 100 Oximetry 11/11/19 09:19 Temperature Pulse Rate Respiratory 16 Rate Blood Pressure (mmHg) O2 Sat by Pulse Oximetry Oxygen Devices in Use Now: None - Nasal Cannula removed pt tolerating RA at 95- 100% Appearance: Obese elderly woman sitting up in bed feeding self breakfast. Does not appear to be in any distress. Eyes: No Scleral Icterus, PERRLA Ears/Nose/Mouth/Throat: NL Teeth, Lips, Gums, Clear Oropharnyx, Mucous Membranes Moist Neck: NL Appearance and Movements; NL JVP Respiratory: Symmetrical Chest Expansion and Respiratory Effort, - - Rales persist in bilateral lungs mid lung to bases Cardiovascular: NL Sounds; No Murmurs; No JVD, No Edema - Irregular heart sounds Abdominal: NL Sounds; No Tenderness; No Distention, No Hepatosplenomegaly Extremities: - - Chronic edema LE bilaterally, no weeping noted. Skin: - - Bilateral LE skin is bark like in appearance. Moistened with lotion. Wounds on bilateral calfs covered with vasaline gauze and wrapped with kerlix. Neurological: NL Sensation - Alert to self, place, and year. No focal deficits noted., NL Muscle Strength and Tone Result Diagrams: 11/10/19 23:20 11/11/19 12:06 Additional Lab and Data: Lab Results 11/08/19 11/08/19 11/08/19 Range/Units 14:25 14:25 14:25 WBC 8.4 (3.5-10.8) 10^3/uL RBC 4.15 (3.70-4.87) 10^6 /uL Hgb 10.4 L (12.0-16.0) g/dL Hct 33 L (35-47) % MCV 80 (80-97) fL MCH 25 L (27-31) pg MCHC 31 (31-36) g/dL RDW 16 H (10-15) % Plt Count 383 (150-450) 10^3/uL MPV 9.4 (7.4-10.4) fL Neut % (Auto) 69.1 % Lymph % (Auto) 17.6 % [place] % (Auto) 11.1 % Eos % (Auto) 1.4 % Baso % (Auto) 0.8 % Absolute Neuts (auto) 5.8 (1.5-7.7) 10^3/ul Absolute Lymphs (auto) 1.5 (1.0-4.8) 10^3/ul Absolute Monos (auto) 0.9 H (0-0.8) 10^3/ul Absolute Eos (auto) 0.1 (0-0.6) 10^3/ul Absolute Basos (auto) 0.1 (0-0.2) 10^3/ul Absolute Nucleated RBC 0.0 10^3/ul Nucleated RBC % 0.0 VBG pH (7.32-7.43) VBG pCO2 (41-51) mmHg VBG pO2 (35-45) mmHg VBG HCO3 (24-28) mmol/L VBG O2 Saturation (70-80) % VBG Base Excess (0.0-4.0) mmol/L Sodium 138 (135-145) mmol/L Potassium 4.6 (3.5-5.0) mmol/L Chloride 98 L (101-111) mmol/L Carbon Dioxide 30 (22-32) mmol/L Anion Gap 10 (2-11) mmol/L BUN 45 H (6-24) mg/dL Creatinine 1.03 H (0.51-0.95) mg/dL Est GFR ( Amer) 61.2 (>60) Est GFR (Non-Af Amer) 50.6 (>60) BUN/Creatinine Ratio 43.7 H (8-20) Glucose 415 H (70-100) mg/dL Lactic Acid 1.5 (0.5-2.0) mmol/L Calcium 10.0 (8.6-10.3) mg/dL Magnesium 1.9 (1.9-2.7) mg/dL Total Bilirubin 0.50 (0.2-1.0) mg/dL AST 10 L (13-39) U/L ALT 5 L (7-52) U/L Alkaline Phosphatase 61 (34-104) U/L Troponin I 0.03 H* (<0.03) ng/mL C-Reactive Protein 247.48 H (<8.01) mg/L B-Natriuretic Peptide (<=100) pg/mL Total Protein 8.4 (6.4-8.9) g/dL Albumin 3.4 (3.2-5.2) g/dL Globulin 5.0 H (2-4) g/dL Albumin/Globulin Ratio 0.7 L (1-3) Influenza A (Rapid) (Negative) Influenza B (Rapid) (Negative) 11/08/19 11/08/19 11/08/19 Range/Units 14:25 14:25 16:05 WBC (3.5-10.8) 10^3/uL RBC (3.70-4.87) 10^6 /uL Hgb (12.0-16.0) g/dL Hct (35-47) % MCV (80-97) fL MCH (27-31) pg MCHC (31-36) g/dL RDW (10-15) % Plt Count (150-450) 10^3/uL MPV (7.4-10.4) fL Neut % (Auto) % Lymph % (Auto) % [place] % (Auto) % Eos % (Auto) % Baso % (Auto) % Absolute Neuts (auto) (1.5-7.7) 10^3/ul Absolute Lymphs (auto) (1.0-4.8) 10^3/ul Absolute Monos (auto) (0-0.8) 10^3/ul Absolute Eos (auto) (0-0.6) 10^3/ul Absolute Basos (auto) (0-0.2) 10^3/ul Absolute Nucleated RBC 10^3/ul Nucleated RBC % VBG pH 7.39 (7.32-7.43) VBG pCO2 59 H (41-51) mmHg VBG pO2 < 38.0 (35-45) mmHg VBG HCO3 29.6 H (24-28) mmol/L VBG O2 Saturation 21.4 L (70-80) % VBG Base Excess 8.6 H (0.0-4.0) mmol/L Sodium (135-145) mmol/L Potassium (3.5-5.0) mmol/L Chloride (101-111) mmol/L Carbon Dioxide (22-32) mmol/L Anion Gap (2-11) mmol/L BUN (6-24) mg/dL Creatinine (0.51-0.95) mg/dL Est GFR ( Amer) (>60) Est GFR (Non-Af Amer) (>60) BUN/Creatinine Ratio (8-20) Glucose (70-100) mg/dL Lactic Acid (0.5-2.0) mmol/L Calcium (8.6-10.3) mg/dL Magnesium (1.9-2.7) mg/dL Total Bilirubin (0.2-1.0) mg/dL AST (13-39) U/L ALT (7-52) U/L Alkaline Phosphatase (34-104) U/L Troponin I (<0.03) ng/mL C-Reactive Protein (<8.01) mg/L B-Natriuretic Peptide 180 H (<=100) pg/mL Total Protein (6.4-8.9) g/dL Albumin (3.2-5.2) g/dL Globulin (2-4) g/dL Albumin/Globulin Ratio (1-3) Influenza A (Rapid) Negative (Negative) Influenza B (Rapid) Negative (Negative) Microbiology and Other Data: Microbiology 11/09/19 04:00 Legionella Urinary Antigen - Final Urine Negative Legionella Antigen Streptococcus pneumoniae Ag Screen - Final Negative S. pneumo Antigen Assess/Plan/Problems-Billing Assessment: 88 year old female with history significant for dementia, CAD, Afib, HTN, CHF, DM2, Hyperlipidemia, and Hypothyroid with 6 day history of cough, fever, and hyperglycemia. Ms. Tavera has been admitted to hospital for RLL PNA and COVID 19 rule out. - Patient Problems (1) Right lower lobe pneumonia Current Visit: Yes Comment: -Ceftriaxone and Azithromycin IV Q24H -11/10 WBC 7.0 -Lung sounds with rales bilaterally -COVID 19 negative result contact precautions lifted. (2) At risk for aspiration Current Visit: Yes Comment: -Pt on nectar thick liquids and mechanical ground food -tolerating well (3) Atrial fibrillation Current Visit: No Comment: - Rate controlled, - Continue metoprolol - Plavix 75mg - Aspirin - Multiple attempts to draw blood for repeat labs have failed. Midline ordered (4) Diabetes mellitus type 2 Current Visit: Yes Comment: - On lispro SS, accuchecks ACHS also Lantus - Lantus dose decreased to 8 Units will continue to evaluate (5) CAD (coronary artery disease) Current Visit: Yes Comment: - Aspirin 325mg - Atorvastatin - Plavix (6) Chronic systolic congestive heart failure Current Visit: No Comment: - Continue Metoprolol, Furosemide, Spironolactone - Not in exacerbation - +4 Pitting edema bilaterally lower extrems - Pt with hx of angioedema on JAVI (7) Hyperlipidemia Current Visit: No Comment: - Continue atorvastatin (8) Hypertension Current Visit: No Comment: - Well controlled on Metoprolol, Spironolactone, Furosemide (9) Hypothyroidism Current Visit: No Comment: - Continue levothyroxine (10) Lower extremity edema Current Visit: No Comment: -Peripheral pulses not palpable R/T edema -Skin thickened and barklike bilateral low extrems. -No weeping noted in lower extrems -Skin flaking -Wounds bilateral calfs covered with vasaline gauze and wrapped with kerlix change daily and PRN (11) DVT prophylaxis Current Visit: No Comment: -Lovenox SQ Status and Disposition: Stable
[2019-11-11] MEDS: Magnesium Oxide TAB* 400 MG PO SCH (10:24)
[2019-11-11 10:56] LABS: BUN/Creatinine Ratio 20.9 (8-20); Blood Urea Nitrogen 14 mg/dL (6-24); CO2 Carbon Dioxide 35 mmol/L (22-32); Calcium 8.7 mg/dL (8.6-10.3); Chloride 102 mmol/L (101-111); EGFR African American 100.5 (>60); EGFR Non-African American 83.1 (>60); Glucose 213 mg/dL (70-100); Magnesium 2.3 mg/dL (1.9-2.7); Sodium 142 mmol/L (135-145)
[2019-11-11 11:01] LABS: Anion Gap 5 mmol/L (2-11)
[2019-11-11] MEDS: Furosemide TAB* 20 MG PO SCH (11:57)
[2019-11-11] MEDS ORDERED: NS 0.9% 500 ML* 500 ML IV ONE (17:00)
[2019-11-11] MEDS: Enoxaparin(*) 40 MG/0.4 ML SYR SUBCUT SCH (20:53)
[2019-11-11] MEDS: Atorvastatin* 10 MG TAB PO SCH (22:20)
[2019-11-11] MEDS: cefTRIAXone(*) 1 GM in NS 0.9% 50 ML* 50 ML IVPB SCH (22:24)
[2019-11-11] MEDS: Azithromycin 500 mg/250 ml NS 500 MG/250 ML BAG IVPB SCH (23:23)
[2019-11-12] MEDS: Levothyroxine TAB* 25 MCG TAB PO SCH (05:31)
[2019-11-12] MEDS: Furosemide TAB* 40 MG PO SCH (08:59)
[2019-11-12] MEDS: Magnesium Oxide TAB* 400 MG PO SCH (08:59)
[2019-11-12] MEDS: Cholecalciferol TAB* 400 UNIT PO SCH (08:59)
[2019-11-12] MEDS: Metoprolol Succinate XL TAB* 25 MG PO SCH (08:59)
[2019-11-12] MEDS: Spironolactone TAB* 25 MG PO SCH (09:00)
[2019-11-12] MEDS: Aspirin TAB* 325 MG PO SCH (09:00)
[2019-11-12] MEDS: Famotidine TAB* 20 MG PO SCH (09:00)
[2019-11-12] MEDS: Insulin LISPRO* 1 UNITS UNIT SUBCUT SCH ×2 (09:00→12:44)
[2019-11-12] MEDS: Docusate CAP* 100 MG PO SCH ×2 (09:00→09:04)
[2019-11-12] MEDS: Gabapentin CAP(*) 300 MG PO SCH (09:00)
[2019-11-12] MEDS: Clopidogrel TAB* 75 MG PO SCH (09:00)
[2019-11-12] MEDS: Senna TAB 8.6 mg* TAB PO SCH (09:04)
[2019-11-12] MEDS: Insulin GLARGINE(*) 1 UNITS UNIT SUBCUT SCH (09:05)
[2019-11-12 11:17] LABS: ABS Eosinophils 0.2 10^3/ul (0-0.6); ABS Lymphocytes 1.6 10^3/ul (1.0-4.8); ABS Monocytes 0.6 10^3/ul (0-0.8); ABS Neutrophils 3.7 10^3/ul (1.5-7.7); Eosinophil % 3.1 %; Hematocrit 30 % (35-47); Hemoglobin 9.1 g/dL (12.0-16.0); Lymphocyte % 26.6 %; Mean Corpuscular HGB Conc 31 g/dL (31-36); Mean Corpuscular Hemoglobin 25 pg (27-31); Mean Corpuscular Volume 80 fL (80-97); Platelet Count 274 10^3/uL (150-450); Red Blood Count 3.69 10^6 /uL (3.70-4.87); Red Cell Distribution Width 15 % (10-15); White Blood Count 6.1 10^3/uL (3.5-10.8)
[2019-11-12 11:30] LABS: BUN/Creatinine Ratio 13.9 (8-20); Calcium 8.7 mg/dL (8.6-10.3); EGFR African American 92.5 (>60); EGFR Non-African American 76.4 (>60); Potassium 3.7 mmol/L (3.5-5.0)
[2019-11-12] MEDS: Furosemide TAB* 20 MG PO SCH (12:44)
[2019-11-12 13:58] VITALS: BP 100/80
--- NOTE | 2019-11-12 15:06 | DS ---
CC: Dr. Kathy Marie * DISCHARGE SUMMARY: DATE OF ADMISSION: 11/08/19 DATE OF DISCHARGE: 11/12/19 PROVIDER: Pravin Mosher NP PRIMARY CARE PROVIDER: Dr. Kathy Marie. ATTENDING PHYSICIAN: Dr. Mcdaniels * (dictated by Pravin Mosher NP). PRIMARY DIAGNOSIS: Right lower lobe pneumonia SECONDARY DIAGNOSES: 1. Atrial fibrillation. 2. Diabetes mellitus. 3. Coronary artery disease 4. Congestive heart failure 5. Hyperlipidemia. 6. Hypertension. 7. Hypothyroidism. STUDIES WHILE IN THE HOSPITAL: 1. 11/10/19, ECG: Normal sinus rhythm with PVCs 2. Chest x-ray, 11/08/19, impression: Findings consistent with right basilar pneumonia. HISTORY OF PRESENT ILLNESS AND HOSPITAL COURSE: Mrs. Tavera is an 88-year-old female with past medical history significant for dementia, CAD, CHF, atrial fibrillation, hypertension, diabetes mellitus, hyperlipidemia, who presents to the emergency dept. on 11/08/19 with elevated blood sugars and shortness of breath. Please see H and P by Caryn Marr NP for complete summary of events leading to this hospitalization. While in the ER, the patient was found to have right lower lobe pneumonia and was started on azithromycin and ceftriaxone. The course of IV antibiotics was interrupted initially due to loss of peripheral IV. Owing to the patient being at high risk for aspiration p.o. antibiotics were not given for the first 2 days of admission. Following U/ S guided peripheral venous access, Ceftriaxone and azithromycin restarted on 11/10/19 and continued on , 11/11/19. The patient was converted to p.o. antibiotics today. Mrs. Tavera was ruled out for influenza A and B also COVID-19 was undetected. Throughout the hospital stay, the patient' s mental status progressed from somnolent to alert, however, she continues to be confused to date but is aware of where she is and who she is. The patient is maintaining 95-100% oxygen saturation on room air. Blood glucose on arrival was 415. Pt's initial Lantus dosing was at 10 units, however, on the morning of 11/09 BG was 50mg/dL. The Lantus dose was promptly adjusted to 8units. Following the Lantus dosage change the BG stabilized into the 130's to 190's where pt normally lives. Mrs. Tavera is taking food orally now, Lantus will return to 10 Units daily upon discharge. PHYSICAL EXAMINATION: On exam, the patient is alert to self and place, unable to report date. Heart is irregular but without murmurs, rubs, or gallops. Lung sounds with rales at the bases bilaterally without rhonchi, wheezes, or rubs. Abdomen: Bowel sounds positive x4 quadrants. There is +4 edema in the lower extremities, it is a chronic issue for the patient. Skin overlying the legs is bark like, no weeping presently, but the patient does have open wounds on both calves. It is currently wrapped in gauze, unable to assess at this point in time. No focal neurological deficit appreciated. Ms. Tavera is stable for discharge, most recent vital signs are as follows 97.5 temp, 95 for heart rate, 16 for respirations, 100% on room air, and 123/81 for blood pressure DISCHARGE MEDICATIONS: Changed medications or added: 1. Azithromycin 250 mg p.o. daily x3 days. 2. Cefdinir 300 mg p.o. b.i.d. x5 days. Continued medications: 1. Acetaminophen 650 mg p.o. q.6 hours as needed for pain. 2. Aspirin 325 mg p.o. daily. 3. Atorvastatin 10 mg p.o. at bedtime. 4. Cholecalciferol 800 units p.o. daily 5. Clopidogrel 75 mg p.o. daily. 6. Docusate 100 mg p.o. b.i.d. 7. Famotidine 10 mg p.o. daily. 8. Furosemide 40 mg p.o. q.a.m. 9. Furosemide 20 mg p.o. at 12 o'clock. 10. Gabapentin 300 mg p.o. b.i.d. 11. Levothyroxine 25 mcg p.o. q.a.m. 12. Metoprolol 25 mg p.o. daily. 13. Senokot 1 to 2 tabs p.o. b.i.d. 14. Spironolactone 25 mg p.o. q.a.m. 15. Ammonium lactate 1 application topically daily. 16. Glipizide 10 mg p.o. q.a.m. 17. Glipizide 2.5 mg p.o. q.p.m. 18. Insulin glargine 10 units subcu daily. 19. Lanolin mineral oil 1 application topical b.i.d. 20. Lidocaine 30 g cream 1 application topical 2 to 3 times a day as needed for pain. 21. Miconazole 1 application topically b.i.d. 22. Tramadol 50 to 100 mg p.o. q.8 hours as needed for pain. 23. Vitamin A and D, white petrolatum, lanolin ointment 42.5 g ointment 1 application topically after diaper change as needed. DISCHARGE PLAN: Ms. Tavera will be discharged to [facility] short-term rehab. ACTIVITY: Out of bed with assistance and continue physical therapy. DIET: Diabetic diet, thin liquids, and pureed solids. Medications are noted above. The patient is continuing antibiotics azithromycin 250 mg p.o. daily x3 days and cefdinir 300 mg p.o. b.i.d. x5 days. All other medication should be continued as ordered. Mrs Tavera should should return to emergency department for worsening shortness of breath, lightheadedness, dizziness, chest pain or discomfort, high fevers, chills, night sweats, loss of consciousness or any other worrisome signs or symptoms DISCHARGE CONDITION: Stable DISCHARGE DISPOSITION: To short-term rehab. This is a summarized report of complex medical history and hospital stay. For further details, please see the entire medical record. TIME SPENT: Approximately 40 minutes on this discharge. PRAVIN MOSHER, SUELLEN [id number]/[facility] #: [id number] JOSEFA
== END 2019-11-12 15:00 | DRG 194 ==
LOC: ED 13:51 → MED 17:13 → OBSVTOIN 11-09 11:00 → MEDTELE 11-10 22:15
PROVIDERS: ADMIT Hospitalist; ATTEND Internal Medicine
PROC: 05HY33Z Insertion of Infusion Device into Upper Vein, Percutaneous Approach (ICD-10-PCS; principal; 2019-11-10)
DX: J18.9 Pneumonia, unspecified organism (principal); I50.22 Chronic systolic (congestive) heart failure; I24.8 Other forms of acute ischemic heart disease; L97.229 Non-pressure chronic ulcer of left calf with unspecified severity; L97.219 Non-pressure chronic ulcer of right calf with unspecified severity; I11.0 Hypertensive heart disease with heart failure; F03.90 Unspecified dementia, unspecified severity, without behavioral disturbance, psychotic disturbance, mood disturbance, and anxiety; I48.91 Unspecified atrial fibrillation; E78.5 Hyperlipidemia, unspecified; E11.65 Type 2 diabetes mellitus with hyperglycemia; I25.10 Atherosclerotic heart disease of native coronary artery without angina pectoris; E03.9 Hypothyroidism, unspecified; K21.9 Gastro-esophageal reflux disease without esophagitis; K59.09 Other constipation; R74.8 Abnormal levels of other serum enzymes; R60.0 Localized edema; R63.3 Feeding difficulties; Z79.84 Long term (current) use of oral hypoglycemic drugs; Z79.82 Long term (current) use of aspirin; Z79.4 Long term (current) use of insulin; Z79.899 Other long term (current) drug therapy; Z88.8 Allergy status to other drugs, medicaments and biological substances; Z82.49 Family history of ischemic heart disease and other diseases of the circulatory system; Z80.3 Family history of malignant neoplasm of breast
CPT/HCPCS: 36415; 36600; 71045; 80048; 80053; 81003; 81015; 82803; 82947; 83605; 83735; 83880; 84484; 85025; 86140; 87086; 87899; 93005; 96365; 99284; A9270-GY; G0378; J0456; J0696; J1650; J3475; J3480; U0002